=== PATIENT | female | born 1990 | race African-American/Black ===

== ENCOUNTER 2020-07-14 06:58 | Emergency (ER) | payer BC, OTHER, SELFPAY ==
[2020-07-14 07:19] VITALS: BP 107/40; PULSE 88; RESP 16; TEMP 36.9; O2SAT 98; BMI 37.5
--- NOTE | 2020-07-14 07:34 | ED_ITS ---
HPI - Headache General Chief Complaint: Headache Stated Complaint: headache,dizzy Time Seen by Provider: 07/14/20 07:21 History of Present Illness HPI Narrative: 30-year-old female with a history of migraines who presents to the emergency department for evaluation of headache. The patient states that the headache started around midnight, occurred while she was watching television, came on gradually. She describes a sensation as a pressure like sensation over her temporal areas of her head. The pressure is intermittent. The pressure is 8/10 at its worst. She had associated nausea without vomiting. She denied numbness, weakness, fever, chills, cough, rhinorrhea, chest pain or shortness of breath. The patient states that her last menstrual period is late by approximately 1 week and she is concerned that she may be . The patient states that she woke up this morning and had a persistent headache and was not able to go to work secondary to her headache, therefore she came to the emergency department for evaluation. 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 Related Data Previous Rx's Medication Instructions Recorded metoclopramide HCl [Reglan] 10 mg PO Q6H PRN #10 tab 07/14/20 Allergies Allergy/AdvReac Type Severity Reaction Status Date / Time No Known Allergies Allergy Verified 07/14/20 07:19 Review of Systems Review of Systems: Yes all other systems are reviewed and are negative Constitutional: Constitutional: Reports as per HPI Cardiovascular: Cardiovascular: Reports as per HPI Respiratory: Respiratory: Reports as per HPI Gastrointestinal: Gastrointestinal: Reports as per HPI Genitourinary: Genitourinary: Reports as per HPI Musculoskeletal: Musculoskeletal: Reports as per HPI Integumentary/Breasts: Skin/Breast: Reports as per HPI Neurologic: Reports as per HPI and Reports Abnormal speech present Psychiatric: Psychiatric: Reports as per HPI [facility] Past Medical History Medical History Migraine Social History Social History (Updated 07/14/20 @ 08:12 by Tomasz Mascorro MD) Alcohol intake: never Smoking Status: Never smoker Use of substances other than those prescribed or required for medical reasons: No Advance Directives: Yes Advance Directives Information Provided: Yes Advance Directives on File: No 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al status: employed 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: 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 , 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 Physical Exam Vital Signs: Vital Signs: Last Vital Signs Temp 98.4 F 07/14/20 07:19 Pulse 88 07/14/20 07:19 Resp 16 07/14/20 07:19 BP 107/40 L 07/14/20 07:19 Pulse Ox 98 07/14/20 07:19 Body Mass Index 37.5 Const: General: cooperative, no acute distress, well developed, alert and awake Orientation/consciousness: oriented to person HENMT: Head: Yes normal to inspection, Yes normocephalic, Yes atraumatic and Yes other (No temporal tenderness) Ears: hearing grossly normal bilaterally General nose exam: Normal external nose present Face and sinus: Yes normal facial exam Mouth: Normal oral and palatal mucosa present, lip normal, tongue normal, oropharynx normal and moist mucous membranes Throat: Yes posterior oropharynx normal, Yes tonsils normal and Yes uvula midline Eyes: General: appearance normal, both eyes and all related structures Eyelids: Yes eyelids normal Conjunctivae: conjunctivae normal Sclerae: sclerae normal Corneas: corneas normal Pupils: Equal, round and reactive pupils present Neck: Neck: Yes normal visual inspection, Yes no lymphadenopathy, Yes trachea midline and Yes supple Thyroid: Thyroid normal Lymphatic: no lymphadenopathy noted Chest: Chest palpation & inspection: normal inspection of the chest and normal palpation of entire chest wall Resp: Effort & Inspection: normal respiratory effort and able to speak in complete sentences Auscultation: clear to auscultation bilaterally Cardio: Rate: regular rate Rhythm: regular rhythm Heart sounds: S1 normal heart sound present, S2 normal heart sound present and no murmurs GI: Inspection: Yes normal to inspection Palpation (GI): Soft to palpation, nontender and No hepatosplenomegaly present Auscultation: normal bowel sounds : General: Yes no CVA tenderness Back/Spine/Pelvis: Back: no CVA tenderness Thoracic/Lumbar Spine: thoracic and lumbar spine normal to inspection Skin: General skin exam: no rashes or lesions noted, no erythema and no jaundice Lesions: no lesions Rashes: no rashes Trauma: no lacerations or abrasions Wounds: no wounds Neuro: General: oriented to person and moves all extremities Cranial nerves: Yes CN's II-XII intact bilaterally and Yes Equal, round and reactive pupils present Cognition (Neuro): normal cognition Speech: Abnormal speech present Motor exam (neuro): Motor abnormalities not present Extrem: General: Yes normal to inspection, Yes no pedal edema and Yes no calf tenderness Right upper extremity: normal to inspection Left upper extremity: normal to inspection Right lower extremity: normal to inspection Left lower extremity: normal to inspection Psych: Appearance: grossly normal Mental Status: mental status grossly normal Speech and movement: Normal speech and movement present Affect: normal affect Attitude: cooperative Thought process: Normal thought process present Insight: Good insight present (Psych) NIH Stroke Scale Internal: Initial- Upon Arrival Level of Consciousness: Alert Level of Consciousness Questions: Answers both questions correctly Level of Consciousness Commands: Performs both tasks correctly Best Gaze: Normal Visual: No visual loss Facial Palsy: Normal Motor Arm (Right): No drift Motor Arm (Left): No drift Motor Leg (Right): No drift Motor Leg (Left): No drift Limb Ataxia: Absent Sensory: Normal Best Language: No aphasia Dysarthia: Normal Extinction and Inattention: No abnormality Score: 0 Course Course Course Narrative: 30-year-old female who presents to the emergency department fo r evaluation of headache, she does have a history of migraines. The patient did take Excedrin migraine which is her usual migraine medication, with only minimal relief of her pain. The patient also states that she is approximately 1 week late on her menstrual period and she is concerned that she may be . Patient's physical examination was unremarkable with a normal neurologic exam. Patient's presentation is consistent with a migraine syndrome. I did order Tylenol 975 per orally for the patient. I also ordered a urine test. 0821: Patient's urine test came back negative and I did discuss this negative result with the patient. She was advised to assume that she is until she gets her menstrual periods. She was advised to repeat a home test in 1-2 weeks if she does not have her menstrual period. Patient's pain did improve with Tylenol orally. I will start her on a migraine regimen to include Tylenol 975 mg orally, Benadryl 50 mg orally and regular and 10 mg orally. She was advised to take his medications every 6 hours as needed for headache. I did tell her that these medications would make her sleepy and she cannot drive while taking these medications. She is given a work note not return to work for 2 days. She is given printed instructions and advised to return to the emergency department if her symptoms get worse or she develops any new symptoms that are concerning to her. MDM - Headache Differential Diagnosis Differential diagnosis: Likely migraine, tension headache, subarachnoid hemorrhage, headache, meningitis and sinusitis Medical Records Attestation: I reviewed the patient's medical records. Lab Data Attestation: I reviewed the patient's lab results. Lab results narrative: Urine test was negative Labs: Lab Results 07/14/20 Range/Units 07:53 Urine Test NEGATIVE (NEGATIVE) Discharge Plan Discharge Clinical Impression: Migraine Qualifiers: Migraine type: without aura Patient Disposition: Home, Self-Care Instructions: Migraine Headache (ED) Additional Instructions: Your test today was negative. You should repeat a home test in 1-2 weeks if he is not having menstrual periods. For migraines take the following medications together every 6 hours: Tylenol 325 mg pills, 3 pills once (you can take Excedrin migraine if you are not as prescribed on the bottle). Benadryl 25 mg pills, 2 pills once. Reglan 10 mg, 1 pill once These 3 medications can be taken together every 6 hours, these medications are making her sleepy, do not drive or work if you take these medications. No work for 2 days. Please return to the emergency department her symptoms get worse if you develop any symptoms that are concerning to you. Prescriptions: New metoclopramide HCl [Reglan] 10 mg tablet 10 mg PO Q6H PRN (Reason: Headache, nausea or vomiting) Qty: 10 RF: 0 Stand Alone Forms: Work/School Release
[2020-07-14] MEDS: Acetaminophen 325 MG TABLET 975 MG PO (07:49)
[2020-07-14 08:09] LABS: UPreg QC Valid YES; Urine Pregnancy NEGATIVE (NEGATIVE)
== END 2020-07-14 08:43 | disposition home or self-care (01) ==
PROVIDERS: Emergency Provider Emergency Medicine Emergency Medical Services
DX: G43.009 Migraine without aura, not intractable, without status migrainosus (principal); Z79.899 Other long term (current) drug therapy; Z20.828 Contact with and (suspected) exposure to other viral communicable diseases
CPT/HCPCS: 81025; 99283; 99284

== ENCOUNTER 2020-08-19 09:57 | Outpatient (REF) | payer OTHER, SELFPAY | END 2020-08-19 09:58 | disposition home or self-care (01) | LOC: HO.LAB 09:57 | PROVIDERS: Visit Provider Internal Medicine | DX: Z20.828 Contact with and (suspected) exposure to other viral communicable diseases (principal) | CPT/HCPCS: C9803; U0003 ==

== ENCOUNTER 2020-09-15 10:39 | Outpatient (REF) | payer OTHER, SELFPAY | END 2020-09-15 10:40 | disposition home or self-care (01) | LOC: HO.LAB 10:39 | PROVIDERS: Visit Provider Internal Medicine | DX: Z20.822 Contact with and (suspected) exposure to COVID-19 (principal) | CPT/HCPCS: 36415; C9803; U0003 ==

== ENCOUNTER 2020-10-22 10:19 | Emergency (ER) | payer BC, OTHER, SELFPAY ==
[2020-10-22 10:23] VITALS: BP 111/58; PULSE 85; RESP 18; TEMP 36.8; O2SAT 98; BMI 38.7
[2020-10-22 11:37] LABS: COVID-19 Test Negative (Negative)
--- NOTE | 2020-10-22 12:05 | ED_ITS ---
HPI - General Adult General Chief complaint: General Medical Stated complaint: sore throat Time Seen by Provider: 10/22/20 10:42 Source: patient Mode of arrival: ambulatory History of Present Illness HPI narrative: 30-year-old female with a past medical history of migraines presenting to the ED complaining of sore throat since yesterday. Reports feels scratchy. Denies difficulty/inability to swallow, swelling, fever, cough, ear pain, SOB, CP, exposure to COVID-19 Onset (ago): day(s) Related Data Previous Rx's Medication Instructions Recorded metoclopramide HCl [Reglan] 10 mg PO Q6H PRN #10 tab 07/14/20 Allergies Allergy/AdvReac Type Severity Reaction Status Date / Time No Known Allergies Allergy Verified 07/14/20 07:19 Review of Systems Review of Systems: Constitutional: No Fever, No Chills ENT/Mouth: No Ear Pain, No Nasal Congestion, No Sinus Pain, No Hoarseness, +sore throat, No Rhinorrhea, No Swallowing Difficulty Cardiovascular: No Chest Pain, No SOB Respiratory: No Cough, No Sputum, No Wheezing Skin: No Skin Lesions, No rash Yes all other systems are reviewed and are negative [facility] Past Medical History Attestation statement: The following information was validated with the patient. 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 Physical Exam Vital Signs: Vital Signs: Last Vital Signs Temp 98.2 F 10/22/20 10:23 Pulse 85 10/22/20 10:23 Resp 18 10/22/20 10:23 BP 111/58 L 10/22/20 10:23 Pulse Ox 98 10/22/20 10:23 Body Mass Index 38.7 Const: General: cooperative, healthy appearing, comfortable and no acute distress Orientation/consciousness: patient oriented x3 Limitations: no limitations HENMT: Head: Yes normal to inspection Ears: hearing grossly normal bilaterally and TM's normal bilaterally General nose exam: Normal external nose present and Normal nares present Face and sinus: Yes normal facial exam Mouth: Normal oral and palatal mucosa present Throat: Yes posterior oropharynx normal, Yes tonsils normal, Yes uvula midline, Yes abnormal tonsil, No peritonsillar mass, No uvula laterally displaced and No uvular edema Eyes: General: appearance normal, both eyes and all related structures Eyelids: Yes eyelids normal Conjunctivae: conjunctivae normal EOM: EOMs intact bilaterally Neck: Neck: Yes normal visual inspection, Yes full ROM, Yes no lymphadenopathy and Yes no meningeal signs Resp: Effort & Inspection: normal respiratory effort Cardio: Rate: regular rate GI: Inspection: Yes normal to inspection Skin: Rashes: no rashes Wounds: no wounds Neuro: General: patient oriented x3 and no meningeal signs Gait exam (Neuro): Normal gait present Extrem: General: Yes normal to inspection Course Course Course Narrative: -COVID-19 and rapid strep negative Medical Decision Making MDM Narrative Medical decision making narrative: On exam VSS, NAD/well-appearing. Concern for viral syndrome/COVID-19 versus viral pharyngitis. Exam not consistent with strep pharyngitis at this time. Plan: Rapid strep, COVID-19 testing. Lab Data Labs: Lab Results 10/22/20 Range/Units 11:11 COVID-19 ([facility]NEY) Negative (Negative) COVID-19 Clin Com See Note Discharge Plan Discharge Clinical Impression: Pharyngitis Patient Disposition: Home, Self-Care Instructions: Viral Syndrome (ED) Additional Instructions: Your COVID-19 and rapid strep were negative today in the ED. does important that he stay hydrated at home. Take Tylenol Motrin as needed for pain/fever. Rest. Follow up with her primary care doctor Prescriptions: No Action metoclopramide HCl [Reglan] 10 mg tablet 10 mg PO Q6H PRN (Reason: Headache, nausea or vomiting) Qty: 10 RF: 0 Referrals: Physician,None [Primary Care Provider] - 5 days Stand Alone Forms: Work/School Release
== END 2020-10-22 12:21 | disposition home or self-care (01) ==
PROVIDERS: Physician Assistant; Emergency Provider Emergency Medicine
DX: J02.9 Acute pharyngitis, unspecified (principal); Z20.822 Contact with and (suspected) exposure to COVID-19
CPT/HCPCS: 36415; 87071; 87147; 87635; 87880; 99283

== ENCOUNTER 2021-01-05 11:32 | Outpatient (REF) | payer BC, OTHER, SELFPAY ==
[2021-01-05 11:55] LABS: COVID-19 Test Negative (Negative); IDNOW Serial# 55D5AD1C
== END 2021-01-05 11:33 | disposition home or self-care (01) ==
LOC: HO.LAB 11:32
PROVIDERS: Visit Provider Internal Medicine
DX: Z20.822 Contact with and (suspected) exposure to COVID-19 (principal)
CPT/HCPCS: 36415; 87635; C9803

== ENCOUNTER → 2021-03-10 09:57 | Outpatient (BNVA) | payer SELFPAY | DX: Z11.1 Encounter for screening for respiratory tuberculosis (principal) ==

== ENCOUNTER 2021-05-08 10:35 | Outpatient (REF) | payer BC, OTHER, SELFPAY | END 2021-05-08 10:36 | disposition home or self-care (01) | LOC: HO.LAB 10:35 | PROVIDERS: Visit Provider Internal Medicine | DX: Z20.822 Contact with and (suspected) exposure to COVID-19 (principal) | CPT/HCPCS: C9803; U0003; U0005 ==

== ENCOUNTER 2021-05-15 13:18 | Outpatient (REF) | payer BC, OTHER, SELFPAY | END 2021-05-15 13:19 | disposition home or self-care (01) | LOC: HO.LAB 13:18 | PROVIDERS: Visit Provider Internal Medicine | DX: Z20.822 Contact with and (suspected) exposure to COVID-19 (principal) | CPT/HCPCS: C9803; U0003; U0005 ==

== ENCOUNTER → 2021-06-23 13:42 | Outpatient (BNVA) | payer BC, OTHER, SELFPAY | PROVIDERS: Visit Provider Advanced Practice Midwife | DX: Z32.01 Encounter for pregnancy test, result positive (principal) | CPT/HCPCS: 81025; 99212 ==

== ENCOUNTER 2021-06-23 15:38 | Outpatient (REF) | payer BC, OTHER, SELFPAY ==
--- NOTE | ~2021-06-23 | US_ITS ---
EXAMINATION: ULTRASOUND OB LIMITED CLINICAL INFORMATION: Encounter for positive test. Estimated delivery date from LMP 12/11/2020 COMPARISON: None TECHNIQUE: Transabdominal OB ultrasound was performed. FINDINGS: There is a single viable intrauterine . heart rate is 147 bpm. measurements: BPD 3.1 cm suggesting gestational age 15 weeks 5 days OFD 3.3 cm suggesting gestational age 16 weeks 6 days Head circumference 12.5 cm suggesting gestational age 16 weeks 2 days Abdominal circumference 10.3 cm suggesting gestational age 16 weeks 2 days Femur length 2.1 cm suggesting gestational age 16 weeks 2 days. measurements are concordant. From today's measurements, gestational age is estimated at 16 weeks 1 day. There is a right fundal placenta with grade 1 changes. The maternal ovaries were not imaged. US/US OB limited IMPRESSION: Single viable intrauterine . Size agrees with date from LMP. From today's measurements, estimated date of delivery is 16 weeks 1 day.
== END 2021-06-23 15:39 | disposition home or self-care (01) ==
LOC: HO.US 15:38
PROVIDERS: Visit Provider Advanced Practice Midwife
DX: O09.292 Supervision of pregnancy with other poor reproductive or obstetric history, second trimester (principal); Z3A.16 16 weeks gestation of pregnancy
CPT/HCPCS: 76815

== ENCOUNTER → 2021-07-02 09:49 | Outpatient (BNVA) | payer BC, OTHER, SELFPAY | PROVIDERS: Visit Provider Advanced Practice Midwife | DX: O26.892 Other specified pregnancy related conditions, second trimester (principal); G43.009 Migraine without aura, not intractable, without status migrainosus; O99.212 Obesity complicating pregnancy, second trimester; O34.219 Maternal care for unspecified type scar from previous cesarean delivery; Z3A.16 16 weeks gestation of pregnancy; Z91.013 Allergy to seafood; Z79.82 Long term (current) use of aspirin | CPT/HCPCS: 99212 ==

== ENCOUNTER 2021-07-10 09:20 | Outpatient (REF) | payer BC, OTHER, SELFPAY ==
--- NOTE | ~2021-07-10 | US_ITS ---
EXAMINATION: US OBSTETRICAL CLINICAL INFORMATION: 31-year-old at the 18.0 weeks of gestation Screening for anomaly COMPARISON: 06/23/2021 TECHNIQUE: Real-time transabdominal ultrasound was performed using C1-5 megahertz transducer. FINDINGS: A single, active, fetus is seen in vertex presentation. The placenta is anterior without previa, and the amniotic fluid volume is wnl. MEASUREMENTS: 1. Biparietal Diameter: 4.1 cm; 18.4 wks 2. Occipital Frontal Diameter: 5.7 cm 3. Head Circumference: 15.7 cm; 18.5 wks 4. Abdominal Circumference: 12.6 cm; 18.2 wks 5. Femur Length: 2.7 cm; 18.1 wks 6. Humerus Length: 2.7 cm; 18.4 wks 7. Tibia Length: 2.4 cm; 18.5 wks 8. Ulna Length: 2.5 cm; 18.6 wks 9. Lateral ventricle: 0.64 cm 10. Cerebellum: 1.8 cm; 18.5 wks 11. Cisterna Magna: 0.4 cm 12. Nuchal Fold: 3.1 mm 13. Heart Rate: 152 beats per minute Rt ovary: Unable to visualize Lt ovary: normal Cervical length 3.9 cm on T/A. GESTATIONAL AGE: 1. Established GA: 18.0 wks 2. GA from [facility]: 18.3 wks ESTIMATED DATE OF DELIVERY: 1. Established VICKI: 12/11/2021 2. VICKI from [facility]: 12/08/2021 ANATOMY: The views of the cardiac anatomy were suboptimal due to position. The visualized anatomy includes but not limited to: 1. Cranium: Normal 2. Intracranial anatomy: cavum septum pellucidi, lateral ventricles, choroid plexus, cerebellum, posterior fossa, third and fourth ventricles. 3. face: orbits, lip/palate, profile, nasal bone 4. Heart: Limited views due to position.. 5. Diaphragm: Normal 6. Abdominal wall: Normal 7. Cord Insertion: Normal 8. Spine: Cervical, thoracic, lumbar, sacral. 9. Stomach: Normal size and shape 10. Right Kidney: Normal 11. Left Kidney: Normal 12. 3 vessel cord: Normal 13. Upper extremity: Open hands, fifth digit. 14. Lower extremity: Tibia, fibula, bilateral feet. 15. Bladder: Normal 16. Genitalia: Female, patient aware US/US OB /maternal detail IMPRESSION: 1. Single, living, intrauterine with appropriate biometry. 2. Limited the cardiac views. Rest of the anatomy was within normal limits. DISCUSSION: I reviewed today's ultrasound findings. We discussed the limitations of ultrasound in diagnosing aneuploidy and other congenital abnormalities. I reviewed the differences between screening test and diagnostic test. Amniocentesis was discussed and declined. She was informed that the baseline incidence of congenital abnormalities is approximately 3-5%. Not all these conditions are diagnosable in utero. RECOMMENDATIONS: 1. Follow-up in 3 weeks for heart views (scheduled). 2. N IPT ordered. Thank you for allowing me to participate in her care. Total time 30 minutes. The time spent was devoted to counseling the patient about the disease and diagnosis, coordinating care including reviewing her records, pertinent lab data and studies, as well as discussing diagnostic evaluation and workup, plan therapeutic interventions and future disposition of care. This includes any additional research needed to obtain further information in formulating the plan of care of this patient. This note was generated with a voice recognition program. Please excuse any errors which may have been overlooked during my review of this note. Sometimes these errors may affect the content or meaning of a given sentence.
== END 2021-07-10 09:21 | disposition home or self-care (01) ==
LOC: HO.US 09:20
PROVIDERS: Visit Provider Advanced Practice Midwife
DX: O35.9XX0 Maternal care for (suspected) fetal abnormality and damage, unspecified, not applicable or unspecified (principal); Z3A.18 18 weeks gestation of pregnancy
CPT/HCPCS: 76811

== ENCOUNTER 2021-07-24 08:16 | Outpatient (REF) | payer BC, OTHER, SELFPAY ==
[2021-07-25 11:19] LABS: BV Int Neg Control Negative (Negative); BV Int Pos Control Positive (Positive)
[2021-07-25 15:10] LABS: CT PCR NOT DETECTED (Not Detect.); NG PCR NOT DETECTED (Not Detect.)
[2021-08-01 22:11] LABS: HPV 16 RNA NOT DETECTED (NOT DETECTED); HPV mRNA E6/E7 rflx Detected (Not Detected)
== END 2021-07-24 08:17 | disposition home or self-care (01) ==
LOC: HO.LAB 08:16
PROVIDERS: Visit Provider Advanced Practice Midwife
DX: Z01.419 Encounter for gynecological examination (general) (routine) without abnormal findings (principal); O99.212 Obesity complicating pregnancy, second trimester; O34.219 Maternal care for unspecified type scar from previous cesarean delivery; E66.9 Obesity, unspecified; Z3A.20 20 weeks gestation of pregnancy; Z20.2 Contact with and (suspected) exposure to infections with a predominantly sexual mode of transmission; Z79.899 Other long term (current) drug therapy
CPT/HCPCS: 81003; 87480; 87491; 87510; 87591; 87624; 87625; 87660; 88142; 99212

== ENCOUNTER 2021-07-30 08:37 | Outpatient (REF) | payer BC, OTHER, SELFPAY ==
[2021-07-30 10:19] LABS: Hemoglobin 11.3 g/dl (12.0-16.0); Mean Corpuscular HGB Conc 33.2 g/dl (31.0-35.0); Mean Corpuscular Hemoglobin 29.3 pg (27.0-33.0); Mean Corpuscular Volume 88.1 fL (80.0-98.0); Mean Platelet Volume 10.7 fL (9.4-12.3); Platelet Count 233 X10*3/uL (160-400); Red Blood Count 3.86 X10*6/uL (4.20-5.50); Red Cell Distribution Width 14.4 % (11.0-16.0); White Blood Count 7.6 X10*3/uL (4.8-10.8)
[2021-07-30 10:58] LABS: Glucose 1 Hour PP 50gm Dose 100 mg/dL (60-140)
[2021-07-30 11:10] LABS: Amphetamine Screen Urine Not Detected (Not Detect); Barbiturates, Urine Not Detected (Not Detect); Benzodiazepines Screen Urine Not Detected (Not Detect); Cannabinoid Screen Urine Not Detected (Not Detect); Cocaine Screen Urine Not Detected (Not Detect); Fentanyl, urine Not Detected (Not Detect); Opiate Screen Urine Not Detected (Not Detect); Phencyclidine Screen Urine Not Detected (Not Detect)
[2021-07-30 11:13] LABS: HIV AB/AG Nonreactive (Nonreactive); HIV Num 1 0.05 S/CO (0.00-0.99); ~Hepatitis C Antibody Nonreactive (Nonreactive)
[2021-07-30 11:48] LABS: HBsAGNum1 0.24 S/CO (0.00-0.99); Hepatitis B Surface Antigen Negative (Negative)
[2021-07-31 09:05] LABS: Syphilis Screen Nonreactive (Nonreactive)
[2021-08-01 13:22] LABS: Rubella IgG Antibody 1.72 Index
== END 2021-07-30 08:38 | disposition home or self-care (01) ==
LOC: HO.LAB 08:37
PROVIDERS: Visit Provider Advanced Practice Midwife
DX: Z32.01 Encounter for pregnancy test, result positive (principal); Z67.40 Type O blood, Rh positive
CPT/HCPCS: 80307; 85027; 86762; 86780; 86787; 86803; 86850; 86900; 86901; 87086; 87340; 87389

== ENCOUNTER 2021-07-31 09:34 | Outpatient (REF) | payer BC, OTHER, SELFPAY ==
--- NOTE | ~2021-07-31 | US_ITS ---
EXAMINATION: OBSTETRICAL ULTRASOUND, Follow up HISTORY: 31-year-old at the 21.0 weeks of gestation Incomplete survey High BMI COMPARISON: 07/10/2021 TECHNIQUE: Real time transabdominal imaging with color and M-mode Doppler. PRESENTATION: Vertex PLACENTA LOCATION: Anterior without previa AMNIOTIC FLUID: Within normal limits MEASUREMENTS: 1. Biparietal Diameter: 4.9 cm; 20.6 wks 2. Head Circumference: 19.2 cm; 21.4 wks 3. Abdominal Circumference: 17.3 cm; 22.2 wks 4. Femur Length: 3.7 cm; 21.6 wks 5. Heart Rate: 152 beats per minute WEIGHT: Estimated weight is 464 grams (1 lbs 0 oz) -- 90 %. Normal views of lateral cerebral ventricle, profile, nose/lips, 4ch view, LVOT, RVOT, three-vessel, 3 vessel trachea view, aortic and ductal arches. GESTATIONAL AGE: 1. Established GA: 21.0 wks 2. GA from [facility]: 21.5 wks ESTIMATED DATE OF DELIVERY: 1. Established VICKI: 12/11/2021 2. VICKI from [facility]: 12/06/2021 US/US OB follow up IMPRESSION: 1. A single fetus with appropriate interval growth. 2. Previously limited views of the anatomy were seen as listed above. No abnormalities were noted in visualized anatomy. 3. This completes the survey. I reviewed the limitations of ultrasound in diagnosing aneuploidy and other congenital abnormalities. Amniocentesis was again reviewed and she declined. She was informed that the baseline instance of congenital abnormalities and defects in the general population is approximately 3-5%. Not all these conditions are diagnosable in utero. RECOMMENDATIONS: 1. f/u PRN Thank you very much for this referral. This note was generated with a voice recognition program. Please excuse any errors which may have been overlooked during my review of this note. Sometimes these errors may affect the content or meaning of a given sentence.
== END 2021-07-31 09:35 | disposition home or self-care (01) ==
LOC: HO.US 09:34
PROVIDERS: Visit Provider Advanced Practice Midwife
DX: Z32.01 Encounter for pregnancy test, result positive (principal)
CPT/HCPCS: 76816

== ENCOUNTER → 2021-09-01 13:20 | Outpatient (BNVA) | payer OTHER, SELFPAY | PROVIDERS: Visit Provider Obstetrics & Gynecology | DX: O99.212 Obesity complicating pregnancy, second trimester (principal); E66.9 Obesity, unspecified; O98.512 Other viral diseases complicating pregnancy, second trimester; U07.1 COVID-19; Z3A.25 25 weeks gestation of pregnancy | CPT/HCPCS: 99212 ==

== ENCOUNTER → 2021-10-30 07:57 | Outpatient (BNVA) | payer OTHER, SELFPAY | PROVIDERS: Visit Provider Advanced Practice Midwife | DX: O36.63X0 Maternal care for excessive fetal growth, third trimester, not applicable or unspecified (principal); O99.213 Obesity complicating pregnancy, third trimester; Z3A.32 32 weeks gestation of pregnancy; E66.9 Obesity, unspecified | CPT/HCPCS: 99212 ==

== ENCOUNTER 2021-11-06 09:50 | Outpatient (REF) | payer OTHER, SELFPAY ==
--- NOTE | ~2021-11-06 | US_ITS ---
EXAMINATION: OBSTETRICAL ULTRASOUND, Follow up HISTORY: 31-year-old at the 35.0 weeks of gestation High BMI Size date discrepancy COMPARISON: 07/31/2021 TECHNIQUE: Real time transabdominal imaging with color and M-mode Doppler. PRESENTATION: Vertex PLACENTA LOCATION: Anterior without previa AMNIOTIC FLUID: QUANG 12.2 cm MEASUREMENTS: 1. Biparietal Diameter: 8.7 cm; 35.1 wks 2. Head Circumference: 31.6 cm; 35.4 wks 3. Abdominal Circumference: 31.21 cm; 35.1 wks 4. Femur Length: 6.8 cm; 35.1 wks 5. Heart Rate: 156 beats per minute WEIGHT: EFW: 2670 grams (5 lbs 14 oz) -- 59 %. BIOPHYSICAL PROFILE: Motion: 2 Tone: 2 Breathin Amniotic Fluid: 2 Total score: 8/8 GESTATIONAL AGE: 1. Established GA: 35.0 wks 2. GA from [facility]: 35.2 wks ESTIMATED DATE OF DELIVERY: 1. Established VICKI: 12/11/2021 2. VICKI from [facility]: 12/09/2021 US/US OB follow up IMPRESSION: 1. A single active fetus is in vertex presentation 2. Size equals dates 3. Reassuring BPP with normal QUANG. I reviewed the limitations of ultrasound in estimating weights. According to the patient she is scheduled to repeat her 1 hour GLT. Currently, does not have the diagnosis of gestational diabetes nor is monitoring her glucose. The growth is appropriate for her assigned gestational age. Thank you very much for this referral. Total time 20 minutes. The time spent was devoted to counseling the patient about the disease and diagnosis, coordinating care including reviewing her records, pertinent lab data and studies, as well as discussing diagnostic evaluation and workup, plan therapeutic interventions and future disposition of care. This includes any additional research needed to obtain further information in formulating the plan of care of this patient. This note was generated with a voice recognition program. Please excuse any errors which may have been overlooked during my review of this note. Sometimes these errors may affect the content or meaning of a given sentence.
[2021-11-06 12:25] LABS: Hematocrit 33.2 % (37.0-47.0); Hemoglobin 10.5 g/dl (12.0-16.0); Mean Corpuscular HGB Conc 31.6 g/dl (31.0-35.0); Mean Corpuscular Hemoglobin 27.9 pg (27.0-33.0); Mean Corpuscular Volume 88.3 fL (80.0-98.0); Platelet Count 167 X10*3/uL (160-400); Red Blood Count 3.76 X10*6/uL (4.20-5.50); Red Cell Distribution Width 13.3 % (11.0-16.0); White Blood Count 7.8 X10*3/uL (4.8-10.8)
[2021-11-06 12:48] LABS: Glucose 1 Hour PP 50gm Dose 110 mg/dL (60-140)
[2021-11-06 13:08] LABS: Syphilis Screen Nonreactive (Nonreactive)
== END 2021-11-06 09:51 | disposition home or self-care (01) ==
LOC: HO.US 09:50
PROVIDERS: Obstetrics & Gynecology; Visit Provider Advanced Practice Midwife
DX: O99.213 Obesity complicating pregnancy, third trimester (principal); Z3A.35 35 weeks gestation of pregnancy
CPT/HCPCS: 36415; 76816; 85027; 86780

== ENCOUNTER 2022-02-23 22:24 | Emergency (ER) | payer BC, OTHER, SELFPAY ==
[2022-02-23 23:19] VITALS: BP 123/60; PULSE 99; RESP 16; TEMP 37.5; O2SAT 100; BMI 35.1
[2022-02-23 23:32] LABS: Strep A Nucleic Acid Positive (Negative)
[2022-02-23 23:45] LABS: COVID-19 Test Negative (Negative); IDNOW Serial# 16C4AD1C; Influenza A Negative (Negative); Influenza B2 Negative (Negative)
[2022-02-24 01:40] VITALS: BP 126/76; PULSE 97; RESP 20; O2SAT 100
--- NOTE | 2022-02-24 01:48 | ED.URI ---
HPI - URI/Sore Throat General Chief Complaint: Upper Respiratory Symptoms Stated Complaint: ear and throat pain Time Seen by Provider: 02/24/22 01:43 Source: patient Mode of arrival: ambulatory Limitations: no limitations History of Present Illness HPI Narrative: Patient comes to the emergency room complaining of sore throat since yesterday. Patient denies fever chills, denies coughing, no chest pain or shortness of breath. Patient states that she has mild bilateral ear discomfort. No drainage. Related Data Previous Rx's Medication Instructions Recorded aspirin 81 mg tablet,delayed 162 mg PO DAILY #300 tabs 06/23/21 release (Adult Aspirin Regimen) vitamin with calcium 1 tab PO DAILY #300 tabs 06/23/21 no.72-iron 27 mg-folic acid 1 mg tablet ( Vitamins Plus Low Iron) doxylamine succinate 25 mg tablet 12.5 mg PO BEDTIME sleep 30 days 07/02/21 (Unisom (doxylamine)) #15 tabs pyridoxine (vitamin B6) 25 mg 25 mg PO TID 30 days #90 tabs 07/02/21 tablet famotidine 10 mg tablet (Pepcid AC) 10 mg PO BID 30 days #60 tabs 10/30/21 ferrous sulfate 325 mg (65 mg 325 mg PO DAILY 90 days #90 tabs 11/11/21 iron) tablet,delayed release amoxicillin 500 mg-potassium 1 tab PO BID 10 days #20 tabs 02/24/22 clavulanate 125 mg tablet (Augmentin) Allergies Allergy/AdvReac Type Severity Reaction Status Date / Time shellfish derived Allergy Mild Hives Verified 02/23/22 23:20 Review of Systems Review of Systems: Constitutional : No Weight loss, No Fever, No Chills, No Night Sweats, No Fatigue, No Malaise ENT/Mouth : No Hearing loss, No Ear Pain, No Nasal Congestion, No Sinus Pain, No Hoarseness, complaining of sore throat, No Rhinorrhea, No Swallowing Difficulty Eyes: No Eye Pain, No Swelling, No Redness, No Foreign Body, No Discharge, No Vision Changes Cardiovascular : No Chest Pain, No SOB, No Dyspnea on Exertion, No Orthopnea, No Edema, No Palpitations Respiratory : No Cough, No Sputum, No Wheezing, No Smoke Exposure, No Dyspnea Gastrointestinal : No Nausea, No Vomiting, No Diarrhea, No Constipation, No abdominal Pain, No Hematochezia, No Melena Genitourinary : no irregular bleeding, No Dysuria, No Urinary Frequency, No Hematuria, No Urinary Incontinence, No Urgency, No Flank Pain, No Urinary Flow Changes, No Hesitancy Musculoskeletal : No joint pain, No Myalgias, No Joint Swelling Skin : No Skin Lesions, No rash Neuro : No Weakness, No Numbness, No Paresthesias, No Loss of Consciousness, No Dizziness, No Headache Psych : No Anxiety/Panic, No Depression, No SI/HI/AH/VH, No Social Issues, Heme/Lymph: No Bruising, No Bleeding,No Lymphadenopathy Endocrine : No Polyuria, No Polydipsia, No Temperature Intolerance PMFSH Past Medical History Medical History Migraine Obesity (BMI 30-39.9) Surgical History H/O emergency section Family History Family History Maternal Grandmother Diabetes mellitus Maternal Aunt Cancer of breast, female Social History Social History Household Members: Children Housing: House Are you a primary critical care registered nurse to a significant other at home: No Do you presently have visiting nurse or other home services: No Alcohol intake: never Patient Tobacco Use Status: Never used Tobacco Use of substances other than those prescribed or required for medical reasons: No Agree to transfusion: Yes service: No 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al status: employed 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 Oriented X3. No acute distress. Eyes: Pupils equal, round and reactive to light. ENT: Bilateral enlarged tonsils, no visualized abscess, bilateral exudates, no oropharyngeal obstruction, patient able to swallow, handling oral secretions well Neck: Normal inspection. Neck supple. No lymph nodes noted. No crepitus CVS: Normal heart rate and rhythm. Pulses normal. Normal S1 and S2 Respiratory: No respiratory distress. Breath sounds normal. No Wheezing. No rales Abdomen: Soft and nontender. No rigidity. No distention. Skin: Skin warm and dry. Normal skin color. Normal skin turgor. Extremities: No lower extremity edema. No Lacerations. No Rash Neuro: Oriented X 3. No motor deficit. No sensory deficit. Moving all extremities. No slurred speech. CN 2 through 12 grossly intact Psych: calm, cooperative, normal affect Course Course Course Narrative: I discussed with the patient that she has strep. Patient given the 1st dose of Augmentin in the emergency room, also given p.o. dexamethasone and lidocaine for symptomatic relief. MDM - URI/Sore Throat Lab Data Labs: Lab Results 02/23/22 02/23/22 02/23/22 Range/Units 23:22 23:22 23:22 COVID-19 ([facility]) Negative (Negative) COVID-19 Clin Com See Note Influenza Type A ([facility]) Negative (Negative) Influenza Type B ([facility]) Negative (Negative) Influenza A & B Note See Note S. pyogenes GrpA [facility] Positive A (Negative) Discharge Plan Discharge Clinical Impression: Acute streptococcal pharyngitis Patient Disposition: Home, Self-Care Instructions: Strep Throat (ED) Additional Instructions: Please follow-up with your primary care physician tomorrow. If you have any worsening or new symptoms, please return to the emergency room or call 911 Prescriptions: New amoxicillin-pot clavulanate [Augmentin] 500-125 mg tablet 1 tab PO BID 10 Days Qty: 20 0RF No Action ferrous sulfate 325 mg (65 mg iron) tablet,delayed release (DR/EC) 325 mg PO DAILY 90 Days Qty: 90 3RF Vitamin Plus Low Iron 27 mg iron- 1 mg tablet 1 tab PO DAILY Qty: 300 2RF aspirin [Adult Aspirin Regimen] 81 mg tablet,delayed release (DR/EC) 162 mg PO DAILY Qty: 300 2RF Unisom (doxylamine) 25 mg tablet 12.5 mg PO BEDTIME 30 Days Qty: 15 0RF pyridoxine (vitamin B6) 25 mg tablet 25 mg PO TID 30 Days Qty: 90 0RF Boostrix Tdap 2.5-8-5 Lf-mcg-Lf/0.5mL syringe 0.5 ml IM ONCE Qty: 0.5 0RF famotidine [Pepcid AC] 10 mg tablet 10 mg PO BID 30 Days Qty: 60 2RF
[2022-02-24] MEDS: Lidocaine HCl Viscous 2 % 15 ML SOLUTION MUCOUS MEM (01:53)
[2022-02-24] MEDS: dexAMETHasone sod phosphate 4 MG/ML VIAL 8 MG IVPUSH (01:53)
[2022-02-24] MEDS: Amoxicillin/Potassium Clav 875 MG TABLET PO (01:54)
== END 2022-02-24 01:58 | disposition home or self-care (01) ==
LOC: HO.ED 02-24 01:57
PROVIDERS: Emergency Provider Emergency Medicine
DX: J02.0 Streptococcal pharyngitis (principal); Z20.822 Contact with and (suspected) exposure to COVID-19
CPT/HCPCS: 87502; 87635; 87651; 96374; 99284; J1100

== ENCOUNTER 2022-12-30 19:03 | Emergency (ER) | payer OTHER, SELFPAY ==
--- NOTE | ~2022-12-30 | XR_ITS ---
EXAMINATION: XR ABDOMEN KUB CLINICAL INDICATION: Constipation. COMPARISON: None available. TECHNIQUE: AP view of the abdomen. FINDINGS: The bowel gas pattern is normal with no evidence of ileus or obstruction. No unusual soft tissue calcifications are noted. The bones are unremarkable. XR/XR KUB IMPRESSION: No radiographic evidence of significant fecal residual and or bowel distention.
[2022-12-30 19:13] VITALS: BP 120/71; PULSE 92; RESP 18; TEMP 36.9; O2SAT 100; BMI 38.0
--- NOTE | 2022-12-30 19:16 | ED.GENADULT ---
HPI - General Adult General Chief complaint: Back Pain/Injury Stated complaint: back pain for a month, constipation, multiple Time Seen by Provider: 12/30/22 21:22 Source: patient Mode of arrival: ambulatory Limitations: no limitations History of Present Illness HPI narrative: Patient comes to the emergency room complaining of back pain top to bottom on both sides for several days. Patient also mentioned that she has been constipated. Patient is very anxious, states that she is afraid that she has cancer because of I told her that back pain is a sign of cancer. Patient denies any B symptoms, denies weight loss, denies night sweats. Patient denies any trauma Related Data Previous Rx's Medication Instructions Recorded aspirin 81 mg tablet,delayed 162 mg PO DAILY #300 tabs 06/23/21 release (Adult Aspirin Regimen) vitamin with calcium 1 tab PO DAILY #300 tabs 06/23/21 no.72-iron 27 mg-folic acid 1 mg tablet ( Vitamins Plus Low Iron) doxylamine succinate 25 mg tablet 12.5 mg PO BEDTIME sleep 30 days 07/02/21 (Unisom (doxylamine)) #15 tabs pyridoxine (vitamin B6) 25 mg 25 mg PO TID 30 days #90 tabs 07/02/21 tablet famotidine 10 mg tablet (Pepcid AC) 10 mg PO BID 30 days #60 tabs 10/30/21 ferrous sulfate 325 mg (65 mg 325 mg PO DAILY 90 days #90 tabs 11/11/21 iron) tablet,delayed release amoxicillin 500 mg-potassium 1 tab PO BID 10 days #20 tabs 02/24/22 clavulanate 125 mg tablet (Augmentin) acetaminophen 500 mg tablet 500 mg PO Q6H PRN fever or pain 12/30/22 #14 tabs cyclobenzaprine 5 mg tablet 5 mg PO TID PRN muscle spasm #7 12/30/22 tabs Allergies Allergy/AdvReac Type Severity Reaction Status Date / Time shellfish derived Allergy Mild Hives Verified 02/23/22 23:20 Review of Systems Review of Systems: Constitutional : No Weight loss, No Fever, No Chills, No Night Sweats, No Fatigue, No Malaise ENT/Mouth : No Hearing loss, No Ear Pain, No Nasal Congestion, No Sinus Pain, No Hoarseness, No sore throat, No Rhinorrhea, No Swallowing Difficulty Eyes: No Eye Pain, No Swelling, No Redness, No Foreign Body, No Discharge, No Vision Changes Cardiovascular : No Chest Pain, No SOB, No Dyspnea on Exertion, No Orthopnea, No Edema, No Palpitations Respiratory : No Cough, No Sputum, No Wheezing, No Smoke Exposure, No Dyspnea Gastrointestinal : No Nausea, No Vomiting, No Diarrhea, complaining of Constipation, No abdominal Pain, No Hematochezia, No Melena Genitourinary : no irregular bleeding, No Dysuria, No Urinary Frequency, No Hematuria, No Urinary Incontinence, No Urgency, No Flank Pain, No Urinary Flow Changes, No Hesitancy Musculoskeletal : Bilateral back pain, from the top of the scapulas to the lumbar area bilaterally, No Myalgias, No Joint Swelling Skin : No Skin Lesions, No rash Neuro : No Weakness, No Numbness, No Paresthesias, No Loss of Consciousness, No Dizziness, No Headache Psych : No Anxiety/Panic, No Depression, No SI/HI/AH/VH, No Social Issues, Heme/Lymph: No Bruising, No Bleeding,No Lymphadenopathy Endocrine : No Polyuria, No Polydipsia, No Temperature Intolerance [facility] Past Medical History Medical History Migraine Obesity (BMI 30-39.9) Surgical History H/O emergency section Family History Family History (Reviewed 07/24/21 @ 08:38 by Deo Georges [facility]) Maternal Grandmother Diabetes mellitus Maternal Aunt Cancer of breast, female Social History Social History Household Members: Children Housing: House Are you a primary tire care manager to a significant other at home: No Do you presently have visiting nurse or other home services: No Alcohol intake: never Patient Tobacco Use Status: Never used Tobacco Agree to transfusion: Yes Advance Directives: No Advance Directives Information Provided: No service: No 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al status: employed 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 Oriented X3. No acute distress. Eyes: Pupils equal, round and reactive to light. ENT: Pharynx normal. Neck: Normal inspection. Neck supple. No lymph nodes noted. No crepitus CVS: Normal heart rate and rhythm. Pulses normal. Normal S1 and S2 Respiratory: No respiratory distress. Breath sounds normal. No Wheezing. No rales Abdomen: Soft and nontender. No rigidity. No distention. Skin: Skin warm and dry. Normal skin color. Normal skin turgor. Extremities: No lower extremity edema. No Lacerations. No Rash Neuro: Oriented X 3. No motor deficit. No sensory deficit. Moving all extremities. No slurred speech. CN 2 through 12 grossly intact Psych: calm, cooperative, very anxious, crying Course Course Course Narrative: This is an RME: Additional HPI, ROS, PE not included below will be deferred to primary provider. 32 year old female with no significant PMH presents with back pain X3 weeks and constipation that began 3 days ago. Patient reports she pooped 4 days ago. Patient is ambulatory. Denies saddle paresthesias and reports she is not incontinent of urine or stool. No nausea, vomiting, fevers, chills, malaise. PE: benign Plan: Medical Decision Making Medical Decision Making [facility] Narrative: -I discussed the patient's physical exam with the patient. -discussed with the patient that there is no suspicion of cancer -KUB interpreted by me, no air-fluid levels, no significant amount of stool Differential Diagnosis Differential Diagnoses: The differential diagnosis associated with the presentation includes (Consider patient, anxiety, depression, musculoskeletal pain, fibromyalgia) Radiology Impression Discussion of test interpretation with radiology: I have reviewed the radiologist's reading. Radiologist Impression: FINDINGS: The bowel gas pattern is normal with no evidence of ileus or obstruction. No unusual soft tissue calcifications are noted. The bones are unremarkable. XR/XR KUB IMPRESSION: No radiographic evidence of significant fecal residual and or bowel distention. ? Discharge Plan Discharge Clinical Impression: Musculoskeletal pain Patient Disposition: Home, Self-Care Additional Instructions: Please follow-up with your primary care physician tomorrow. If you have any worsening or new symptoms, please return to the emergency room or call 911 Prescriptions: New cyclobenzaprine 5 mg tablet 5 mg PO TID PRN (Reason: muscle spasm) Qty: 7 0RF acetaminophen 500 mg tablet 500 mg PO Q6H PRN (Reason: fever or pain) Qty: 14 0RF No Action ferrous sulfate 325 mg (65 mg iron) tablet,delayed release (DR/EC) 325 mg PO DAILY 90 Days Qty: 90 3RF amoxicillin-pot clavulanate [Augmentin] 500-125 mg tablet 1 tab PO BID 10 Days Qty: 20 0RF Vitamin Plus Low Iron 27 mg iron- 1 mg tablet 1 tab PO DAILY Qty: 300 2RF aspirin [Adult Aspirin Regimen] 81 mg tablet,delayed release (DR/EC) 162 mg PO DAILY Qty: 300 2RF Unisom (doxylamine) 25 mg tablet 12.5 mg PO BEDTIME 30 Days Qty: 15 0RF pyridoxine (vitamin B6) 25 mg tablet 25 mg PO TID 30 Days Qty: 90 0RF Boostrix Tdap 2.5-8-5 Lf-mcg-Lf/0.5mL syringe 0.5 ml IM ONCE Qty: 0.5 0RF famotidine [Pepcid AC] 10 mg tablet 10 mg PO BID 30 Days Qty: 60 2RF
[2022-12-30] MEDS: Ibuprofen 600 MG TABLET PO (21:43)
== END 2022-12-30 21:50 | disposition home or self-care (01) ==
PROVIDERS: Emergency Provider Emergency Medicine; PCP Internal Medicine
DX: M54.50 Low back pain, unspecified (principal); M79.10 Myalgia, unspecified site; F41.9 Anxiety disorder, unspecified
CPT/HCPCS: 74018; 99283

== ENCOUNTER 2023-03-02 09:52 | Emergency (ER) | payer OTHER, SELFPAY ==
--- NOTE | ~2023-03-02 | CT_ITS ---
EXAMINATION: CT ABDOMEN AND PELVIS WITHOUT CONTRAST CLINICAL INFORMATION: Right lower quadrant pain. Diarrhea. COMPARISON: None available. TECHNIQUE: Multidetector volumetric imaging was performed from the superior aspect of the liver through the pubic symphysis. Sagittal and coronal reformatted images were obtained on the technologist's workstation. This CT examination was performed using dose optimization techniques as appropriate, variously including the following: *Automated exposure control *Adjustment of mA and/or kV according to patient size (this includes techniques or standardized protocols for targeted exams where dose is matched to indication/reason for exam; i.e. extremities or head) *Use of iterative reconstruction technique DLP: 829 mGy-cm FINDINGS: LUNG BASES: The visualized lung bases are unremarkable. LIVER, GALLBLADDER, AND BILIARY TREE: The noncontrast liver is normal in size and contour. No biliary ductal dilatation is present. The gallbladder is unremarkable with no evidence of radiopaque gallstones, gallbladder wall thickening, or obvious pericholecystic inflammatory changes. PANCREAS: Normal contour. SPLEEN: Not enlarged. ADRENAL GLANDS: No adrenal mass. KIDNEYS AND URETERS: The kidneys are normal in size, shape, and attenuation. No hydronephrosis, hydroureter, or calculi seen. No perinephric stranding. BLADDER: Underdistended. GASTROINTESTINAL TRACT: Small and large bowel loops are of normal caliber. No small bowel obstruction. ABDOMINAL WALL: No significant hernia is appreciated. LYMPH NODES: No bulky abdominal or pelvic lymphadenopathy. VASCULAR: Normal caliber abdominal aorta. PELVIC VISCERA: The uterus and adnexa are unremarkable. Dominant follicle in the right ovary. OSSEOUS STRUCTURES: No destructive bone lesions. CT/CT abdomen pelvis wo IV con IMPRESSION: No acute abnormality in the abdomen or pelvis.
[2023-03-02 10:00] VITALS: BP 112/65; PULSE 88; RESP 16; TEMP 36.7; O2SAT 98; BMI 39.7
[2023-03-02 10:21] LABS: MANUAL DIFF FLAG NO
[2023-03-02 10:29] LABS: Appearance Urine Cloudy; Basophils Percent Auto 0.3 % (0-2); Color Urine Yellow; Eosinophils Absolute Auto 0.1 X10*3/uL (0.0-0.4); Eosinophils Percent Auto 1.8 % (0-4); Glucose Urine UA Negative (Negative); Imm Gran Abs Auto 0.01 X10*3/uL (0.00-0.03); Imm Gran Pct Auto 0.2 % (0.0-0.4); Leukocyte Esterase Urine Trace (Negative); Lymphocytes Absolute Auto 1.8 X10*3/uL (1.2-4.9); Lymphocytes Percent Auto 29.9 % (20-40); Mean Corpuscular HGB Conc 32.4 g/dl (31.0-35.0); Mean Corpuscular Volume 86.2 fL (80.0-98.0); Mean Platelet Volume 10.2 fL (9.4-12.3); Monocytes Absolute Auto 0.5 X10*3/uL (0.1-1.2); Monocytes Percent Auto 8.1 % (2-11); Neutrophils Absolute Auto 3.6 x10*3/uL (2.0-8.3); Neutrophils Percent Auto 59.7 % (45-73); Nitrite Urine Negative (Negative); PH 5.5 (5.0-9.0); Platelet Count 254 X10*3/uL (160-400); Red Blood Count 4.29 X10*6/uL (4.20-5.50); Red Cell Distribution Width 13.1 % (11.0-16.0); Specific Gravity - Urine 1.025 (1.005-1.025); UMIC TRIGGER UACC YES; Urine Blood Negative (Negative); Urine Ketones Trace mg/dL (Negative); Urine Protein Trace mg/dL (Neg-Trace)
[2023-03-02 10:31] LABS: UPreg QC Valid YES; Urine Pregnancy NEGATIVE (NEGATIVE)
[2023-03-02 10:37] LABS: Alanine Aminotransferase 10 U/L (0-31); Albumin Level 3.8 g/dL (3.5-5.0); Alkaline Phosphatase 69 U/L (39-117); Anion Gap 12 (12-20); Aspartate Amino Transferase 11 U/L (5-31); Bilirubin Total 0.4 mg/dL (0.0-1.0); Blood Urea Nitrogen 6 mg/dL (9-16); Calcium 8.9 mg/dL (8.4-10.2); Carbon Dioxide 24 mmol/L (22-29); Chloride 108 mmol/L (96-108); Estimated Glomerular Filt Rate > 60; Glucose Random 78 mg/dL (60-115); Sodium 140 mmol/L (135-145); Total Protein 7.3 g/dL (6.5-8.0)
[2023-03-02 10:40] LABS: Bacteria Urine 4+ (None Seen); RBC Urine 0-2 /HPF (0-2); Squamous Epithelial Cell Urine >20 /HPF (0-2); UACC Culture Trigger YES
[2023-03-02 10:51] VITALS: BP 115/69; PULSE 77; RESP 16; TEMP 36.9; O2SAT 99
--- NOTE | 2023-03-02 10:57 | ED_ITS ---
HPI - General Adult General Chief complaint: General Medical Stated complaint: lower/upper abd pain Time Seen by Provider: 03/02/23 10:57 Source: patient Mode of arrival: ambulatory Limitations: no limitations History of Present Illness HPI narrative: 33 yo female with no significant medical history presents to the ER for evaluation of 3 days of intermittent epigastric pain, right lower quadrant pain and back pain. She also reports foul-smelling urine. No burning or urgency with urination. She reports nausea and she vomited 2 days ago but nothing since. She reports burning pain in the abdomen that radiates up into the chest. She also has had a few episodes of loose, nonbloody stools. She states she gets i ntermittent sharp cramping pains in the RLQ and right flank that come and go. No blood in her urine. MD complaint: abdominal pain and back pain Onset (ago): day(s) (3) Location: abdomen Radiation: non-radiation Severity: moderate Quality: aching Pain Consistency: intermittent Relieving factors: none Exacerbating factors: none Associated symptoms: other (foul smelling urine) Treatments prior to arrival: none Related Data Previous Rx's Medication Instructions Recorded aspirin 81 mg tablet,delayed 162 mg PO DAILY #300 tabs 06/23/21 release (Adult Aspirin Regimen) vitamin with calcium 1 tab PO DAILY #300 tabs 06/23/21 no.72-iron 27 mg-folic acid 1 mg tablet ( Vitamins Plus Low Iron) doxylamine succinate 25 mg tablet 12.5 mg PO BEDTIME sleep 30 days 07/02/21 (Unisom (doxylamine)) #15 tabs pyridoxine (vitamin B6) 25 mg 25 mg PO TID 30 days #90 tabs 07/02/21 tablet famotidine 10 mg tablet (Pepcid AC) 10 mg PO BID 30 days #60 tabs 10/30/21 ferrous sulfate 325 mg (65 mg 325 mg PO DAILY 90 days #90 tabs 11/11/21 iron) tablet,delayed release amoxicillin 500 mg-potassium 1 tab PO BID 10 days #20 tabs 02/24/22 clavulanate 125 mg tablet (Augmentin) acetaminophen 500 mg tablet 500 mg PO Q6H PRN fever or pain 12/30/22 #14 tabs cyclobenzaprine 5 mg tablet 5 mg PO TID PRN muscle spasm #7 12/30/22 tabs pantoprazole 40 mg tablet,delayed 40 mg PO DAILY #14 tabs 03/02/23 release (Protonix) Allergies Allergy/AdvReac Type Severity Reaction Status Date / Time shellfish derived Allergy Mild Hives Verified 03/02/23 10:00 Review of Systems Review of Systems: Yes all other systems are reviewed and are negative [facility] Past Medical History Medical History Migraine Obesity (BMI 30-39.9) Surgical History H/O emergency section Family History Family History Maternal Grandmother Diabetes mellitus Maternal Aunt Cancer of breast, female Social History Social History Household Members: Children Housing: House Are you a primary ocular care technician to a significant other at home: No Do you presently have visiting nurse or other home services: No Alcohol intake: never Patient Tobacco Use Status: Never used Tobacco Smoked in Last 30 Days: No Use of substances other than those prescribed or required for medical reasons: No Agree to transfusion: Yes Advance Directives: No service: No 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al status: employed 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 Oriented X3. No acute distress. Head: normocephalic, atraumatic. Eyes: Pupils equal, round and reactive to light. ENT: Pharynx normal. No tonsillar swelling or exudate. Neck: Normal inspection. Neck supple. CVS: Normal heart rate and rhythm. Pulses normal. Respiratory: No respiratory distress. Breath sounds normal. Abdomen: Soft with mild epigastric and RLQ tenderness without rebounding or guarding, normal active +BS x4. No CVA tenderness. Skin: Skin warm and dry. Normal skin color. Normal skin turgor. No rashes. Extremities: No lower extremity edema. No joint swelling. Neuro/psych: Oriented X 3. No motor deficit. No sensory deficit. CN II-XII intact. Normal speech and cognition. Medical Decision Making Medical Decision Making [facility] Narrative: 33-year-old female presents to the ER for evaluation of epigastric pain and rig ht lower quadrant pain along with nausea, vomiting, diarrhea for the last couple of days as well. She also has a foul-smelling urine without any dysuria. Her vital signs are stable and her abdominal exam is only significant for some very mild epigastric and right lower quadrant tenderness. Doubt acute appendicitis given abdominal exam being relatively benign. Her lab workup was reassuring with normal CBC, no metabolic derangements. CT scan of her abdomen was performed which was normal. Her UA was negative for infection. Will treat for gastritis and have her follow-up with her primary care doctor. Patient counseled and is stable for discharge home Differential Diagnosis Differential Diagnoses: The differential diagnosis associated with the presentation includes Gastritis, GERD, appendicitis, gastroenteritis, diverticulitis, colitis, UTI, pyelonephritis Admission/Observation Consideration of admission/observation: Escalation of care including adm ission/observation considered RLQ tenderness, considered admission Lab Data [facility] Lab Attestation statement: I reviewed the patient's lab results. normal CBC, no significant abnormality 03/02/23 10:18 03/02/23 10:18 Labs: Lab Results 03/02/23 03/02/23 03/02/23 Range/Units 10:18 10:18 10:18 WBC 6.0 (4.8-10.8) X10*3/uL RBC 4.29 (4.20-5.50) X10*6/uL Hgb 12.0 (12.0-16.0) g/dl Hct 37.0 (37.0-47.0) % MCV 86.2 (80.0-98.0) fL MCH 28.0 (27.0-33.0) pg MCHC 32.4 (31.0-35.0) g/dl RDW 13.1 (11.0-16.0) % Plt Count 254 D (160-400) X10*3/uL MPV 10.2 (9.4-12.3) fL Immature Gran % (Auto) 0.2 (0.0-0.4) % Neut % (Auto) 59.7 (45-73) % Lymph % (Auto) 29.9 (20-40) % Hall % (Auto) 8.1 (2-11) % Eos % (Auto) 1.8 (0-4) % Baso % (Auto) 0.3 (0-2) % Lymph # (Auto) 1.8 (1.2-4.9) X10*3/uL Hall # (Auto) 0.5 (0.1-1.2) X10*3/uL Eos # (Auto) 0.1 (0.0-0.4) X10*3/uL Baso # (Auto) 0.0 (0.0-0.2) X10*3/uL Abs Immat Gran (auto) 0.01 (0.00-0.03) X10*3/uL Absolute Neuts (auto) 3.6 (2.0-8.3) x10*3/uL Absolute Nucleated RBC 0.000 (0.0-0.012) X10*3/uL Nucleated RBC % (auto) 0.0 (0.0-0.2) /100WBC Sodium 140 (135-145) mmol/L Potassium 4.0 (3.3-5.1) mmol/L Chloride 108 (96-108) mmol/L Carbon Dioxide 24 (22-29) mmol/L Anion Gap 12 (12-20) BUN 6 L (9-16) mg/dL Creatinine 0.69 (0.5-1.4) mg/dL Estim Creat Clear Calc 126.0 Estimated GFR > 60 Random Glucose 78 (60-115) mg/dL Calcium 8.9 (8.4-10.2) mg/dL Total Bilirubin 0.4 (0.0-1.0) mg/dL AST 11 (5-31) U/L ALT 10 (0-31) U/L Alkaline Phosphatase 69 (39-117) U/L Total Protein 7.3 (6.5-8.0) g/dL Albumin 3.8 (3.5-5.0) g/dL Urine Color Yellow Urine Appearance Cloudy Urine pH 5.5 (5.0-9.0) Ur Specific [place] 1.025 (1.005-1.025) Urine Protein Trace (Neg-Trace) mg/dL Urine Glucose (UA) Negative (Negative) mg/dL Urine Ketones Trace (Negative) mg/dL Urine Blood Negative (Negative) Urine Nitrite Negative (Negative) Ur Leukocyte Esterase Trace H (Negative) Urine RBC 0-2 (0-2) /HPF Urine WBC 6-10 H (0-5) /HPF Ur Squamous Epith Cells >20 (0-2) /HPF Urine Bacteria 4+ (None Seen) Hyaline Casts 6-10 (0-2) /LPF Urine Test (NEGATIVE) 03/02/23 03/02/23 Range/Units 10:18 12:25 WBC (4.8-10.8) X10*3/uL RBC (4.20-5.50) X10*6/uL Hgb (12.0-16.0) g/dl Hct (37.0-47.0) % MCV (80.0-98.0) fL MCH (27.0-33.0) pg MCHC (31.0-35.0) g/dl RDW (11.0-16.0) % Plt Count (160-400) X10*3/uL MPV (9.4-12.3) fL Immature Gran % (Auto) (0.0-0.4) % Neut % (Auto) (45-73) % Lymph % (Auto) (20-40) % Hall % (Auto) (2-11) % Eos % (Auto) (0-4) % Baso % (Auto) (0-2) % Lymph # (Auto) (1.2-4.9) X10*3/uL Hall # (Auto) (0.1-1.2) X10*3/uL Eos # (Auto) (0.0-0.4) X10*3/uL Baso # (Auto) (0.0-0.2) X10*3/uL Abs Immat Gran (auto) (0.00-0.03) X10*3/uL Absolute Neuts (auto) (2.0-8.3) x10*3/uL Absolute Nucleated RBC (0.0-0.012) X10*3/uL Nucleated RBC % (auto) (0.0-0.2) /100WBC Sodium (135-145) mmol/L Potassium (3.3-5.1) mmol/L Chloride (96-108) mmol/L Carbon Dioxide (22-29) mmol/L Anion Gap (12-20) BUN (9-16) mg/dL Creatinine (0.5-1.4) mg/dL Estim Creat Clear Calc Estimated GFR Random Glucose (60-115) mg/dL Calcium (8.4-10.2) mg/dL Total Bilirubin (0.0-1.0) mg/dL AST (5-31) U/L ALT (0-31) U/L Alkaline Phosphatase (39-117) U/L Total Protein (6.5-8.0) g/dL Albumin (3.5-5.0) g/dL Urine Color Yellow Urine Appearance Clear Urine pH 7.5 (5.0-9.0) Ur Specific [place] 1.010 (1.005-1.025) Urine Protein Negative (Neg-Trace) mg/dL Urine Glucose (UA) Negative (Negative) mg/dL Urine Ketones Negative (Negative) mg/dL Urine Blood Negative (Negative) Urine Nitrite Negative (Negative) Ur Leukocyte Esterase Negative (Negative) Urine RBC 0-2 (0-2) /HPF Urine WBC 0-5 (0-5) /HPF Ur Squamous Epith Cells 11-20 (0-2) /HPF Urine Bacteria 1+ (None Seen) Hyaline Casts 0-2 (0-2) /LPF Urine Test NEGATIVE (NEGATIVE) Independent Interpretation I performed an independent interpretation of an: CT Scan Interpretation: ct reviewed - no acute abormality Radiology Impression Discussion of test interpretation with radiology: I have reviewed the radiologist's reading. Radiologist Impression: CT/CT abdomen pelvis wo IV con IMPRESSION: No acute abnormality in the abdomen or pelvis. External Record Review External record reviewed: Office record, Outpatient record and Prior outpatient labs Prescription Management I considered prescription management with: Pain Medication Critical Care Time Critical Care Time Critical Care Time: No Discharge Plan Discharge Clinical Impression: Gastritis Patient Disposition: Home, Self-Care Instructions: Gastritis (DC) Additional Instructions: Your lab workup today was unremarkable. Your urine was negative infection and . Your CT scan was normal. Your pain is most likely due to gastritis which is and irritation and inflammation of your stomach lining. Start taking the prescribed medication as directed for this. Stick to a bland diet. Avoid foods high in acid, avoid alcohol and NSAID medications like Aleve, Motrin, Advil or ibuprofen. Follow up with your doctor as needed. Follow up with GI doctor if you symptoms persist despite dietary modifications and medication. If you develop new or worsening symptoms call 911 or come back to the ER for further evaluation. Prescriptions: New pantoprazole [Protonix] 40 mg tablet,delayed release (DR/EC) 40 mg PO DAILY Qty: 14 0RF No Action ferrous sulfate 325 mg (65 mg iron) tablet,delayed release (DR/EC) 325 mg PO DAILY 90 Days Qty: 90 3RF amoxicillin-pot clavulanate [Augmentin] 500-125 mg tablet 1 tab PO BID 10 Days Qty: 20 0RF cyclobenzaprine 5 mg tablet 5 mg PO TID PRN (Reason: muscle spasm) Qty: 7 0RF acetaminophen 500 mg tablet 500 mg PO Q6H PRN (Reason: fever or pain) Qty: 14 0RF Vitamin Plus Low Iron 27 mg iron- 1 mg tablet 1 tab PO DAILY Qty: 300 2RF aspirin [Adult Aspirin Regimen] 81 mg tablet,delayed release (DR/EC) 162 mg PO DAILY Qty: 300 2RF Unisom (doxylamine) 25 mg tablet 12.5 mg PO BEDTIME 30 Days Qty: 15 0RF pyridoxine (vitamin B6) 25 mg tablet 25 mg PO TID 30 Days Qty: 90 0RF Boostrix Tdap 2.5-8-5 Lf-mcg-Lf/0.5mL syringe 0.5 ml IM ONCE Qty: 0.5 0RF famotidine [Pepcid AC] 10 mg tablet 10 mg PO BID 30 Days Qty: 60 2RF
[2023-03-02 12:39] LABS: Appearance Urine Clear; Color Urine Yellow; Glucose Urine UA Negative (Negative); Leukocyte Esterase Urine Negative (Negative); Nitrite Urine Negative (Negative); PH 7.5 (5.0-9.0); Urine Blood Negative (Negative); Urine Ketones Negative (Negative); Urine Protein Negative (Neg-Trace)
[2023-03-02 12:41] LABS: Bacteria Urine 1+ (None Seen); Hyaline Casts Urine 0-2 /LPF (0-2); RBC Urine 0-2 /HPF (0-2); WBC Urine 0-5 /HPF (0-5)
[2023-03-02 12:51] VITALS: BP 107/69; PULSE 74; RESP 16; TEMP 36.6; O2SAT 100
== END 2023-03-02 14:01 | disposition home or self-care (01) ==
PROVIDERS: Physician Assistant; Emergency Provider Emergency Medicine; PCP Internal Medicine
DX: K29.70 Gastritis, unspecified, without bleeding (principal); E66.9 Obesity, unspecified; Z68.39 Body mass index [BMI] 39.0-39.9, adult; Z79.82 Long term (current) use of aspirin; Z79.899 Other long term (current) drug therapy
CPT/HCPCS: 36415; 74176; 80053; 81001; 81025; 85025; 87086; 87147; 99284

== ENCOUNTER 2023-03-12 19:45 | Emergency (ER) | payer OTHER, SELFPAY ==
--- NOTE | ~2023-03-12 | XR_ITS ---
EXAMINATION: XR CHEST CLINICAL INFORMATION: Chest discomfort, shortness of breath. COMPARISON: None available. TECHNIQUE: 2 views of the chest were obtained. FINDINGS: Normal appearance of the cardiomediastinal silhouette. Perihilar fullness and mild diffuse peribronchial thickening. No focal consolidation, pleural effusion or pneumothorax. No acute osseous abnormalities. The visualized upper abdomen is within normal limits. XR/XR chest 2V IMPRESSION: Findings are suggestive of reactive airways disease or an atypical/viral infection. No focal consolidation, pleural effusion or pneumothorax.
--- NOTE | 2023-03-12 19:48 | ECG_ITS ---
Test Reason : CHEST PAIN Blood Pressure : / mmHG Vent. Rate : 072 BPM Atrial Rate : 072 BPM P-R Int : 154 ms QRS Dur : 076 ms QT Int : 408 ms P-R-T Axes : 059 044 027 degrees QTc Int : 446 ms Normal sinus rhythm with sinus arrhythmia Normal ECG No previous ECGs available Referred By: Generic ED Physician Electronically Signed By:Good Ramos
[2023-03-12 19:59] VITALS: BP 108/72; PULSE 74; RESP 20; TEMP 36.9; O2SAT 99; BMI 39.9
--- NOTE | 2023-03-12 19:59 | ED_ITS ---
HPI - General Adult General Chief complaint: Chest Pain Stated complaint: discomfort in chest and back Time Seen by Provider: 03/12/23 20:10 Source: patient Mode of arrival: ambulatory Limitations: no limitations History of Present Illness HPI narrative: Patient is a 33 year old assigned female at with a history of migraines presenting to the emergency department today with a sore throat and chest tightness. Patient states that over the last 3 days she has had chest tightness and a sore throat. Patient denies any dizziness, lightheadedness, abdominal pain, nausea, vomiting, fever, chills, blurry vision, double vision, loss of vision, difficulty breathing, shortness of breath, back pain, night sweats, pain with urination, increased urinary frequency, increased urinary urgency, blood in her urine or stool, syncope or a near syncopal episode, recent trauma or falls, bowel incontinence, bladder incontinence, bowel retention, bladder retention, or any other complaints at this time. Onset (ago): day(s) (3) Location: chest Radiation: non-radiation Severity: mild Severity scale (1-10): 3 Quality: aching and dull Pain Consistency: constant Relieving factors: none Exacerbating factors: none Associated symptoms: chest pain Treatments prior to arrival: none Related Data Previous Rx's Medication Instructions Recorded aspirin 81 mg tablet,delayed 162 mg PO DAILY #300 tabs 06/23/21 release (Adult Aspirin Regimen) vitamin with calcium 1 tab PO DAILY #300 tabs 06/23/21 no.72-iron 27 mg-folic acid 1 mg tablet ( Vitamins Plus Low Iron) doxylamine succinate 25 mg tablet 12.5 mg PO BEDTIME sleep 30 days 07/02/21 (Unisom (doxylamine)) #15 tabs pyridoxine (vitamin B6) 25 mg 25 mg PO TID 30 days #90 tabs 07/02/21 tablet famotidine 10 mg tablet (Pepcid AC) 10 mg PO BID 30 days #60 tabs 10/30/21 ferrous sulfate 325 mg (65 mg 325 mg PO DAILY 90 days #90 tabs 11/11/21 iron) tablet,delayed release amoxicillin 500 mg-potassium 1 tab PO BID 10 days #20 tabs 02/24/22 clavulanate 125 mg tablet (Augmentin) acetaminophen 500 mg tablet 500 mg PO Q6H PRN fever or pain 12/30/22 #14 tabs cyclobenzaprine 5 mg tablet 5 mg PO TID PRN muscle spasm #7 12/30/22 tabs pantoprazole 40 mg tablet,delayed 40 mg PO DAILY #14 tabs 03/02/23 release (Protonix) penicillin V potassium 500 mg 500 mg PO BID 10 days #20 tabs 03/12/23 tablet prednisone 20 mg tablet 20 mg PO DAILY 7 days #7 tabs 03/12/23 Allergies Allergy/AdvReac Type Severity Reaction Status Date / Time shellfish derived Allergy Mild Hives Verified 03/02/23 10:00 Review of Systems Constitutional: Constitutional: Reports no additional constitutional complaints, Denies chills, Denies fever(s) and Denies night sweats Eyes: Eyes: Reports no additional eye complaints, Denies blurry vision, Denies change in vision, Denies diplopia, Denies eye discharge, Denies loss of vision and Denies eye pain ENT: Denies dizziness and Reports sore throat Cardiovascular: Cardiovascular: Reports no additional cardiovascular complaints, Reports chest pain, Denies lightheadedness, Denies Loss of Consciousness and Denies dyspnea Respiratory: Respiratory: Reports no additional respiratory complaints and Denies dyspnea Gastrointestinal: Gastrointestinal: Reports no additional gastrointestinal complaints, Denies abdominal pain, Denies melena, Denies hematochezia, Denies change in bowel habits and Denies change in stool character Genitourinary: Genitourinary: Denies hematuria, Denies urinary frequency, Denies dysuria, Denies urinary incontinence, Denies urinary hesitancy and Denies urinary urgency Musculoskeletal: Musculoskeletal: Reports no additional musculoskeletal compl aints, Denies numbness and Denies tingling Neurologic: Denies dizziness, Denies loss of vision, Denies numbness and Denies tingling Psychiatric: Psychiatric: Reports no additional psychiatric complaints Endocrine: Endocrine: Reports no additional endocrine complaints Hematologic/Lymphatic: Hematologic/Lymphatic: Reports no additional hematologic/lymphatic complaints Allergic/Immunologic: Allergic/Immunologic: Reports no additional allergic/immunologic complaints PMFSH Past Medical History Attestation statement: The following information was validated with the patient. Source: old records reviewed and nursing notes reviewed Medical History Cervical cancer screening Migraine Obesity (BMI 30-39.9) Surgical History H/O emergency section Family History Family History Maternal Grandmother Diabetes mellitus Maternal Aunt Cancer of breast, female Social History Social History Household Members: Children Housing: House Are you a primary child day care teacher to a significant other at home: No Do you presently have visiting nurse or other home services: No Alcohol intake: never Patient Tobacco Use Status: Never used Tobacco Smoked in Last 30 Days: No Use of substances other than those prescribed or required for medical reasons: No Agree to transfusion: Yes Advance Directives: No Advance Directives Information Provided: Yes service: No 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al status: employed 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 , 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al exposures/hazards: No Cognitive needs: No Hearing needs: No Vision needs: No Physical Exam ED Vital Signs: Vital Signs - 24 hr 03/12/23 19:59 Temperature 98.5 F Pulse Rate 74 Respiratory Rate 20 Blood Pressure 108/72 Pulse Oximetry 99 Oxygen Delivery Method Room Air BMI result Body Mass Index 39.9 Const General: cooperative, no acute distress, alert and awake Nutritional Appearance: well nourished Orientation/consciousness: patient oriented x3 Limitations: no limitations HENMT Head: Yes normal to inspection and Yes atraumatic Ears: hearing grossly normal bilaterally and external ears normal General nose exam: Normal external nose present, no nasal discharge noted and no epistaxis Face and sinus: Yes normal facial exam, No abrasion and No laceration Mouth: Normal oral and palatal mucosa present, no drooling and no muffled voice Throat: Yes abnormal tonsil (bilateral erythema and swelling of the tonsils) Eyes General: appearance normal, both eyes and all related structures Periorbital: periorbital findings normal Eyelids: Yes eyelids normal Conjunctivae: conjunctivae normal Pupils: Equal, round and reactive pupils present EOM: EOMs intact bilaterally Neck Neck: Yes normal visual inspection, Yes full ROM and Yes no lymphadenopathy Chest Chest palpation & inspection: normal inspection of the chest Resp Effort & Inspection: normal respiratory effort and able to speak in complete sentences GI Inspection: Yes normal to inspection Neuro General: patient oriented x3 and moves all extremities Cranial nerves: Yes Equal, round and reactive pupils present Cognition (Neuro): normal cognition Motor exam (neuro): 5/5 motor strength present throughout Sensory Exam: Normal double simultaneous stimulation for sensation Coordination: [id number] test normal Extrem General: Yes normal to inspection, Yes full ROM and Yes capillary refill normal Psych Appearance: grossly normal Mental Status: mental status grossly normal Affect: normal affect Attitude: cooperative Thought process: Normal thought process present Thought content: Normal thought content present Insight: Good insight present (Psych) Course Course Course Narrative: This is an RME: Additional HPI, ROS, PE not included below will be deferred to primary provider. Patient is a 33 year old female who presents emergency department for 3 days of discomfort to the throat chest and back, shortness of breath on exertion, chills, nausea without any known sick contacts. Plan: Labs, EKG, CXR, COVID-19 testing Medications Administered Discontinued Medications Generic Name Dose Route Start Last Admin Trade Name Freq PRN Reason Stop Dose Admin Penicillin V Potassium 500 mg 03/12/23 20:52 03/12/23 21:21 Penicillin V Potassium 250 Mg Tablet PO 03/12/23 20:53 500 mg ONCE ONE Administration Prednisone 20 mg 03/12/23 20:52 03/12/23 21:22 Prednisone 20 Mg Tablet PO 03/12/23 20:53 20 mg ONCE ONE Administration Medical Decision Making Medical Decision Making [facility] Narrative: Patient is a 33 year old assigned female at with a history of migraines presenting to the emergency department today with a sore throat and chest tightness. Patient's physical exam was as noted in the physical exam portion of this note. Patient's blood work was unremarkable. Patient's EKG was unremarkable. Patient's chest x-ray showed no acute process. Patient's COVID-19 and strep tests were negative. I explained my physical exam findings as well as all test results to the patient. I answered all questions asked by the patient. I stressed the importance of the patient taking her medication as prescribed. I stressed the importance of the patient following up with her primary care provider. I stressed the importance of the patient returning to the emergency department immediately if her symptoms were to worsen or if she were to develop any dizziness, shortness of breath, difficulty breathing, chest pain, blurry vision, loss of vision, nausea, vomiting, abdominal pain, fever, chills, back pain, or any other complaints. Patient verbalized agreement and understanding with this treatment plan and discharge. Differential Diagnosis Differential Diagnoses: The differential diagnosis associated with the presentation includes Pharyngitis COVID-19 Influenza Strep pharyngitis URI Viral illness NSTEMI STEMI Admission/Observation Consideration of admission/observation: Escalation of care including admission/observation considered Patient would have been admitted to the hospital had her work up had any findings where hospital admission was appropriate and her clinical presentation warranted hospital admission. Lab Data MDM Lab Attestation statement: I reviewed the patient's lab results. My interpretation of these studies and their corresponding values is that they are grossly normal. 03/12/23 20:25 03/12/23 20:25 Labs: Lab Results 03/12/23 03/12/23 03/12/23 Range/Units 20:25 20:25 20:25 WBC 7.3 (4.8-10.8) X10*3/uL RBC 4.36 (4.20-5.50) X10*6/uL Hgb 12.2 (12.0-16.0) g/dl Hct 37.1 (37.0-47.0) % MCV 85.1 (80.0-98.0) fL MCH 28.0 (27.0-33.0) pg MCHC 32.9 (31.0-35.0) g/dl RDW 12.9 (11.0-16.0) % Plt Count 271 (160-400) X10*3/uL MPV 9.8 (9.4-12.3) fL Immature Gran % (Auto) 0.1 (0.0-0.4) % Neut % (Auto) 53.1 (45-73) % Lymph % (Auto) 36.7 (20-40) % [place] % (Auto) 8.8 (2-11) % Eos % (Auto) 1.2 (0-4) % Baso % (Auto) 0.1 (0-2) % Lymph # (Auto) 2.7 (1.2-4.9) X10*3/uL [place] # (Auto) 0.6 (0.1-1.2) X10*3/uL Eos # (Auto) 0.1 (0.0-0.4) X10*3/uL Baso # (Auto) 0.0 (0.0-0.2) X10*3/uL Abs Immat Gran (auto) 0.01 (0.00-0.03) X10*3/uL Absolute Neuts (auto) 3.9 (2.0-8.3) x10*3/uL Absolute Nucleated RBC 0.000 (0.0-0.012) X10*3/uL Nucleated RBC % (auto) 0.0 (0.0-0.2) /100WBC PT 11.4 (10.0-13.1) SEC INR 1.0 (0.9-1.1) Sodium 139 (135-145) mmol/L Potassium 3.6 (3.3-5.1) mmol/L Chloride 109 H (96-108) mmol/L Carbon Dioxide 26 (22-29) mmol/L Anion Gap 8 L (12-20) BUN 8 L (9-16) mg/dL Creatinine 0.69 (0.5-1.4) mg/dL Estim Creat Clear Calc 126.3 Estimated GFR > 60 Random Glucose 86 (60-115) mg/dL Calcium 9.1 (8.4-10.2) mg/dL Total Bilirubin 0.2 (0.0-1.0) mg/dL AST 11 (5-31) U/L ALT 12 (0-31) U/L Alkaline Phosphatase 67 (39-117) U/L Troponin I High Sens (<3.5-17.0) ng/L Total Protein 7.7 (6.5-8.0) g/dL Albumin 3.9 (3.5-5.0) g/dL Lipase 14 (8-78) U/L Beta HCG, Quant mIU/mL COVID-19 (BRITTNEY) (Negative) COVID-19 Clin Com Influenza Type A (HALI) (Negative) Influenza Type B (HALI) (Negative) Influenza A & B Note S. pyogenes GrpA HALI (Negative) 03/12/23 03/12/23 03/12/23 Range/Units 20:25 20:25 20:25 WBC (4.8-10.8) X10*3/uL RBC (4.20-5.50) X10*6/uL Hgb (12.0-16.0) g/dl Hct (37.0-47.0) % MCV (80.0-98.0) fL MCH (27.0-33.0) pg MCHC (31.0-35.0) g/dl RDW (11.0-16.0) % Plt Count (160-400) X10*3/uL MPV (9.4-12.3) fL Immature Gran % (Auto) (0.0-0.4) % Neut % (Auto) (45-73) % Lymph % (Auto) (20-40) % [place] % (Auto) (2-11) % Eos % (Auto) (0-4) % Baso % (Auto) (0-2) % Lymph # (Auto) (1.2-4.9) X10*3/uL [place] # (Auto) (0.1-1.2) X10*3/uL Eos # (Auto) (0.0-0.4) X10*3/uL Baso # (Auto) (0.0-0.2) X10*3/uL Abs Immat Gran (auto) (0.00-0.03) X10*3/uL Absolute Neuts (auto) (2.0-8.3) x10*3/uL Absolute Nucleated RBC (0.0-0.012) X10*3/uL Nucleated RBC % (auto) (0.0-0.2) /100WBC PT (10.0-13.1) SEC INR (0.9-1.1) Sodium (135-145) mmol/L Potassium (3.3-5.1) mmol/L Chloride (96-108) mmol/L Carbon Dioxide (22-29) mmol/L Anion Gap (12-20) BUN (9-16) mg/dL Creatinine (0.5-1.4) mg/dL Estim Creat Clear Calc Estimated GFR Random Glucose (60-115) mg/dL Calcium (8.4-10.2) mg/dL Total Bilirubin (0.0-1.0) mg/dL AST (5-31) U/L ALT (0-31) U/L Alkaline Phosphatase (39-117) U/L Troponin I High Sens < 2.7 (<3.5-17.0) ng/L Total Protein (6.5-8.0) g/dL Albumin (3.5-5.0) g/dL Lipase (8-78) U/L Beta HCG, Quant < 2 mIU/mL COVID-19 (BRITTNEY) Negative (Negative) COVID-19 Clin Com See Note Influenza Type A (HALI) (Negative) Influenza Type B (HALI) (Negative) Influenza A & B Note S. pyogenes GrpA HALI (Negative) 03/12/23 03/12/23 Range/Units 21:00 21:20 WBC (4.8-10.8) X10*3/uL RBC (4.20-5.50) X10*6/uL Hgb (12.0-16.0) g/dl Hct (37.0-47.0) % MCV (80.0-98.0) fL MCH (27.0-33.0) pg MCHC (31.0-35.0) g/dl RDW (11.0-16.0) % Plt Count (160-400) X10*3/uL MPV (9.4-12.3) fL Immature Gran % (Auto) (0.0-0.4) % Neut % (Auto) (45-73) % Lymph % (Auto) (20-40) % [place] % (Auto) (2-11) % Eos % (Auto) (0-4) % Baso % (Auto) (0-2) % Lymph # (Auto) (1.2-4.9) X10*3/uL [place] # (Auto) (0.1-1.2) X10*3/uL Eos # (Auto) (0.0-0.4) X10*3/uL Baso # (Auto) (0.0-0.2) X10*3/uL Abs Immat Gran (auto) (0.00-0.03) X10*3/uL Absolute Neuts (auto) (2.0-8.3) x10*3/uL Absolute Nucleated RBC (0.0-0.012) X10*3/uL Nucleated RBC % (auto) (0.0-0.2) /100WBC PT (10.0-13.1) SEC INR (0.9-1.1) Sodium (135-145) mmol/L Potassium (3.3-5.1) mmol/L Chloride (96-108) mmol/L Carbon Dioxide (22-29) mmol/L Anion Gap (12-20) BUN (9-16) mg/dL Creatinine (0.5-1.4) mg/dL Estim Creat Clear Calc Estimated GFR Random Glucose (60-115) mg/dL Calcium (8.4-10.2) mg/dL Total Bilirubin (0.0-1.0) mg/dL AST (5-31) U/L ALT (0-31) U/L Alkaline Phosphatase (39-117) U/L Troponin I High Sens (<3.5-17.0) ng/L Total Protein (6.5-8.0) g/dL Albumin (3.5-5.0) g/dL Lipase (8-78) U/L Beta HCG, Quant mIU/mL COVID-19 ([facility]NEY) (Negative) COVID-19 Clin Com Influenza Type A ([facility]I) Negative (Negative) Influenza Type B ([facility]I) Negative (Negative) Influenza A & B Note See Note S. pyogenes GrpA HALI Negative (Negative) Independent Interpretation I performed an independent interpretation of an: EKG and Plain X-Ray Interpretation: My interpretation is in agreement with the radiologist's impression of this imaging study. - EXAMINATION: XR CHEST CLINICAL INFORMATION: Chest discomfort, shortness of breath. COMPARISON: None available. TECHNIQUE: 2 views of the chest were obtained. FINDINGS: Normal appearance of the cardiomediastinal silhouette. Perihilar fullness and mild diffuse peribronchial thickening. No focal consolidation, pleural effusion or pneumothorax. No acute osseous abnormalities. The visualized upper abdomen is within normal limits. XR/XR chest 2V IMPRESSION: Findings are suggestive of reactive airways disease or an atypical/viral infection. No focal consolidation, pleural effusion or pneumothorax. Dictated By: Re Roberts Signed By: Electronically signed by Re Roberts 03/12/23 2107 ---- Vent. Rate: 072 BPM ? ? Atrial Rate: 072 BPM P-R Int: 154 ms? QRS Dur: 076 ms QT Int: 408 ms ? ? ? P-R-T Axes: 059 044 027 degrees QTc Int: 446 ms ? Normal sinus rhythm with sinus arrhythmia Normal ECG No previous ECGs available DD/ 52 Radiology Impression Discussion of test interpretation with radiology: I have reviewed the radiologist's reading. Prescription Management I considered prescription management with: Antibiotic (patient prescribed an antibiotic for her pharyngitis.) and Other (patient prescribed oral steroids.) Discharge Plan Discharge Clinical Impression: Pharyngitis Patient Disposition: Home, Self-Care Instructions: Pharyngitis (ED) Additional Instructions: Follow up with your primary care provider. Return to the emergency department immediately if your symptoms worsen or if you develop any dizziness, shortness of breath, difficulty breathing, chest pain, blurry vision, loss of vision, nausea, vomiting, abdominal pain, fever, chills, back pain, or any other complaints. Prescriptions: New prednisone 20 mg tablet 20 mg PO DAILY 7 Days Qty: 7 0RF penicillin V potassium 500 mg tablet 500 mg PO BID 10 Days Qty: 20 0RF No Action ferrous sulfate 325 mg (65 mg iron) tablet,delayed release (DR/EC) 325 mg PO DAILY 90 Days Qty: 90 3RF amoxicillin-pot clavulanate [Augmentin] 500-125 mg tablet 1 tab PO BID 10 Days Qty: 20 0RF pantoprazole [Protonix] 40 mg tablet,delayed release (DR/EC) 40 mg PO DAILY Qty: 14 0RF cyclobenzaprine 5 mg tablet 5 mg PO TID PRN (Reason: muscle spasm) Qty: 7 0RF acetaminophen 500 mg tablet 500 mg PO Q6H PRN (Reason: fever or pain) Qty: 14 0RF Vitamin Plus Low Iron 27 mg iron- 1 mg tablet 1 tab PO DAILY Qty: 300 2RF aspirin [Adult Aspirin Regimen] 81 mg tablet,delayed release (DR/EC) 162 mg PO DAILY Qty: 300 2RF Unisom (doxylamine) 25 mg tablet 12.5 mg PO BEDTIME 30 Days Qty: 15 0RF pyridoxine (vitamin B6) 25 mg tablet 25 mg PO TID 30 Days Qty: 90 0RF Boostrix Tdap 2.5-8-5 Lf-mcg-Lf/0.5mL syringe 0.5 ml IM ONCE Qty: 0.5 0RF famotidine [Pepcid AC] 10 mg tablet 10 mg PO BID 30 Days Qty: 60 2RF Referrals: [facility] [place] [facility] [place]] (Call to establish and follow up with a primary care provider. If you already have a primary care provider, please follow up with them.) [facility] [place] [facility] [Provider Group] (Call to establish and follow up with a primary care provider. If you already have a primary care provider, please follow up with them.) [facility] [place] [facility] [Provider Group] (Call to establish and follow up with a primary care provider. If you already have a primary care provider, please follow up with them.) Interventions: ED Discharge Assessment Last Done: 03/12/23 21:30 Discharge Date/Time: 03/12/23 21:30 Print Language: Japanese
[2023-03-12 20:13] VITALS: PULSE 63
[2023-03-12 20:30] LABS: MANUAL DIFF FLAG NO
[2023-03-12 20:31] LABS: Basophils Percent Auto 0.1 % (0-2); Eosinophils Absolute Auto 0.1 X10*3/uL (0.0-0.4); Eosinophils Percent Auto 1.2 % (0-4); Hematocrit 37.1 % (37.0-47.0); Hemoglobin 12.2 g/dl (12.0-16.0); Imm Gran Abs Auto 0.01 X10*3/uL (0.00-0.03); Imm Gran Pct Auto 0.1 % (0.0-0.4); Lymphocytes Absolute Auto 2.7 X10*3/uL (1.2-4.9); Lymphocytes Percent Auto 36.7 % (20-40); Mean Corpuscular HGB Conc 32.9 g/dl (31.0-35.0); Mean Corpuscular Volume 85.1 fL (80.0-98.0); Mean Platelet Volume 9.8 fL (9.4-12.3); Monocytes Absolute Auto 0.6 X10*3/uL (0.1-1.2); Monocytes Percent Auto 8.8 % (2-11); Neutrophils Absolute Auto 3.9 x10*3/uL (2.0-8.3); Neutrophils Percent Auto 53.1 % (45-73); Platelet Count 271 X10*3/uL (160-400); Red Blood Count 4.36 X10*6/uL (4.20-5.50); Red Cell Distribution Width 12.9 % (11.0-16.0); White Blood Count 7.3 X10*3/uL (4.8-10.8)
[2023-03-12 20:37] LABS: Prothrombin Time 11.4 SEC (10.0-13.1)
[2023-03-12 20:46] LABS: COVID-19 Test Negative (Negative); IDNOW Serial# 55D5AD1C
[2023-03-12 20:47] LABS: Alanine Aminotransferase 12 U/L (0-31); Albumin Level 3.9 g/dL (3.5-5.0); Alkaline Phosphatase 67 U/L (39-117); Anion Gap 8 (12-20); Aspartate Amino Transferase 11 U/L (5-31); Bilirubin Total 0.2 mg/dL (0.0-1.0); Blood Urea Nitrogen 8 mg/dL (9-16); Calcium 9.1 mg/dL (8.4-10.2); Carbon Dioxide 26 mmol/L (22-29); Chloride 109 mmol/L (96-108); Creatinine Clr Calc Pharmacy 126.3; Estimated Glomerular Filt Rate > 60; Glucose Random 86 mg/dL (60-115); Lipase 14 U/L (8-78); Potassium 3.6 mmol/L (3.3-5.1); Sodium 139 mmol/L (135-145); Total Protein 7.7 g/dL (6.5-8.0)
[2023-03-12 20:58] LABS: HCG Quantitative < 2 mIU/mL; Troponin-I High Sensitivity < 2.7 ng/L (<3.5-17.0)
[2023-03-12 21:21] LABS: IDNOW Serial# 08D9AD1C; Influenza A Negative (Negative); Influenza B2 Negative (Negative)
[2023-03-12] MEDS: Penicillin V Potassium 250 MG TABLET 500 MG PO (21:21)
[2023-03-12] MEDS: predniSONE 20 MG TABLET PO (21:22)
[2023-03-12 21:39] LABS: IDNOW Serial# 08D9AD1C; Strep A Nucleic Acid Negative (Negative)
== END 2023-03-12 21:30 | disposition home or self-care (01) ==
PROVIDERS: Nurse Practitioner Family; Physician Assistant Medical; Emergency Provider Emergency Medicine
DX: J02.9 Acute pharyngitis, unspecified (principal); R07.89 Other chest pain; R06.02 Shortness of breath; Z20.822 Contact with and (suspected) exposure to COVID-19
CPT/HCPCS: 36415; 71046; 80053; 83690; 84484; 84702; 85025; 85610; 87502; 87635; 87651; 93005; 99284; 99285

== ENCOUNTER → 2023-03-12 19:48 | Outpatient (BNV) | payer OTHER, SELFPAY | PROVIDERS: Emergency Provider Emergency Medicine; Visit Provider Internal Medicine Cardiovascular Disease | DX: I49.9 Cardiac arrhythmia, unspecified (principal) | CPT/HCPCS: 93010 ==

== ENCOUNTER 2023-04-08 11:35 | Emergency (ER) | payer OTHER, SELFPAY ==
[2023-04-08 11:37] VITALS: BP 119/68; PULSE 89; RESP 19; TEMP 36.6; O2SAT 98; BMI 40.2
--- NOTE | 2023-04-08 11:37 | ED.GENADULT ---
HPI - General Adult General Chief complaint: General Medical Stated complaint: swollen tonsils Time Seen by Provider: 04/08/23 12:23 Source: patient, RN notes reviewed and old records reviewed Mode of arrival: ambulatory Limitations: no limitations History of Present Illness HPI narrative: 33 year old female w/ no significant pmhx presents to the ED today for a complaint of swollen tonsils. She had strep throat recently in February. She states that she had chills, headache, sore throat, and ear pain x1 day. She states she hasn't been able to eat much secondary to the pain/discomfort. She denies seeing any exudate, fever, nausea, vomiting, cough, SOB. Onset (ago): day(s) (1) Location: mouth (tonsils) Severity: mild Relieving factors: none Related Data Previous Rx's Medication Instructions Recorded aspirin 81 mg tablet,delayed 162 mg PO DAILY #300 tabs 06/23/21 release (Adult Aspirin Regimen) vitamin with calcium 1 tab PO DAILY #300 tabs 06/23/21 no.72-iron 27 mg-folic acid 1 mg tablet ( Vitamins Plus Low Iron) doxylamine succinate 25 mg tablet 12.5 mg PO BEDTIME sleep 30 days 07/02/21 (Unisom (doxylamine)) #15 tabs pyridoxine (vitamin B6) 25 mg 25 mg PO TID 30 days #90 tabs 07/02/21 tablet famotidine 10 mg tablet (Pepcid AC) 10 mg PO BID 30 days #60 tabs 10/30/21 ferrous sulfate 325 mg (65 mg 325 mg PO DAILY 90 days #90 tabs 11/11/21 iron) tablet,delayed release amoxicillin 500 mg-potassium 1 tab PO BID 10 days #20 tabs 02/24/22 clavulanate 125 mg tablet (Augmentin) acetaminophen 500 mg tablet 500 mg PO Q6H PRN fever or pain 12/30/22 #14 tabs cyclobenzaprine 5 mg tablet 5 mg PO TID PRN muscle spasm #7 12/30/22 tabs pantoprazole 40 mg tablet,delayed 40 mg PO DAILY #14 tabs 03/02/23 release (Protonix) penicillin V potassium 500 mg 500 mg PO BID 10 days #20 tabs 03/12/23 tablet prednisone 20 mg tablet 20 mg PO DAILY 7 days #7 tabs 03/12/23 amoxicillin 875 mg-potassium 1 tab PO BID 7 days #14 tabs 04/08/23 clavulanate 125 mg tablet Allergies Allergy/AdvReac Type Severity Reaction Status Date / Time shellfish derived Allergy Mild Hives Verified 04/08/23 11:37 Review of Systems Review of Systems: Constitutional: (+) chills, No Fever, No Fatigue, No Malaise ENT/Mouth: (+) ear pain, (+) sore throat, No Nasal Congestion, No Sinus Pain, No Hoarseness, No Rhinorrhea, Eyes: No Eye Pain, No Swelling, No Redness, No Vision Changes Cardiovascular: No Chest Pain, No SOB, No Edema, No Palpitations Respiratory: No Cough, No Sputum, No Dyspnea Gastrointestinal: No Nausea, No Vomiting, No Diarrhea, No Constipation, No Abdominal pain Musculoskeletal: No joint pain, No Myalgias, No Joint Swelling Skin: No Skin Lesions, No rash Neuro: (+) Headache, No Weakness, No Numbness, No Paresthesias Yes all other systems are reviewed and are negative Constitutional: Constitutional: Reports as per [facility] Past Medical History Attestation statement: The following information was validated with the patient. Source: old records reviewed Medical History Cervical cancer screening Migraine Obesity (BMI 30-39.9) Surgical History H/O emergency section Family History Family History Maternal Grandmother Diabetes mellitus Maternal Aunt Cancer of breast, female Social History Social History Household Members: Children Housing: House Are you a primary healthcare insurance sales agent to a significant other at home: No Do you presently have visiting nurse or other home services: No Alcohol intake: never Patient Tobacco Use Status: Never used Tobacco Agree to transfusion: Yes Advance Directives: No Advance Directives Information Provided: Yes service: No 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al status: employed 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 , 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al exposures/hazards: No Cognitive needs: No Hearing needs: No Vision needs: No Physical Exam ED Vital Signs: Vital Signs - 24 hr 04/08/23 11:37 Temperature 98 F Pulse Rate 89 Respiratory Rate 19 Blood Pressure 119/68 Pulse Oximetry 98 Oxygen Delivery Method Room Air BMI result Body Mass Index 40.2 Const General: cooperative, healthy appearing and no acute distress Orientation/consciousness: patient oriented x3 Limitations: no limitations HENMT Head: Yes normal to inspection and Yes atraumatic Ears: hearing grossly normal bilaterally, external ears normal, TM's normal bilaterally and mastoids normal General nose exam: Normal external nose present and Normal nares present Face and sinus: Yes normal facial exam Mouth: tongue normal Teeth and gingiva: dentition normal and gingiva normal Throat: Yes uvula midline, Yes abnormal tonsil (bilateral erythema & swelling, no exudates noted), No uvula laterally displaced and No uvular edema Eyes General: appearance normal, both eyes and all related structures EOM: EOMs intact bilaterally Neck Other: + bilateral submandibular lymphadenopathy Neck: Yes normal visual inspection, Yes no meningeal signs, No anterior neck swelling and No torticollis Lymphatic: no lymphadenopathy noted Resp Effort & Inspection: normal respiratory effort, no respiratory distress and no stridor Auscultation: clear to auscultation bilaterally and no crackles Cardio Rate: regular rate Heart sounds: S1 normal heart sound present and S2 normal heart sound present Skin Rashes: no rashes Wounds: no wounds Neuro General: patient oriented x3, tone normal and no meningeal signs Cranial nerves: Yes CN's II-XII intact bilaterally Gait exam (Neuro): Normal gait present Extrem General: Yes normal to inspection Course Course Course Narrative: RME performed by Lexie Vasquez PA-C. Patient is a 33 year old assigned female at presenting to the emergency department with a sore throat and swollen tonsils. Swabs ordered. Patient placed back in the waiting room pending room availability and results. -Strep positive. COVID-19 negative Results discussed with patient including worrisome signs and symptoms and strict return precautions, and when to return to the emergency department. They verbalized understanding and feel safe for discharge at this time. 33 year old female w/ no significant pmhx presents to the ED today for a complaint of swollen tonsils. Medical Decision Making Medical Decision Making MDM Narrative: 33 year old female w/ no significant pmhx presents to the ED today for a complaint of swollen tonsils. On exam VSS, NAD, PE as above with b/l tonsillar swelling, uvula midline, no signs of trismus, tracheal deviation, or muffled hot potato voice . Likely strep throat vs viral syndrome. No evidence of peritonsilar abscess, retropharyngeal abscess, influenza, COVID, or mononucleosis. Plan: Strep throat & covid swabs, Abx if Strep (+), supportive care Please refer to course for remaining clinical decision making, interpretation of labs/imaging results, and discussions with consultants and/or family members. Differential Diagnosis Differential Diagnoses: The differential diagnosis associated with the presentation includes As above Admission/Observation Consideration of admission/observation: Escalation of care including admission/observation considered Lab Data MDM Lab Attestation statement: I reviewed the patient's lab results. Labs: Lab Results 04/08/23 04/08/23 Range/Units 11:40 11:41 COVID-19 ([facility]) Negative (Negative) COVID-19 Clin Com See Note S. pyogenes GrpA HALI Positive A (Negative) Radiology Impression Discussion of test interpretation with radiology: I have reviewed the radiologist's reading. External Record Review External record reviewed: Inpatient record, Office record, Outpatient record, Prior outpatient labs, Prior outpatient radiology, Primary care record and Outside ED record Tests considered The following testing was considered but not selected: As above Prescription Management I considered prescription management with: Pain Medication and Antibiotic Discharge Plan Discharge Clinical Impression: Acute streptococcal pharyngitis Patient Disposition: Home, Self-Care Instructions: Strep Throat (DC) Additional Instructions: You have strep throat Augmentin as an antibiotic please take as prescribed Follow-up with ENT due to recurrent strep throat infections Gargle with warm salt water take Tylenol/ Motrin as needed for pain/swelling If symptoms persist or worsen return to the ED Prescriptions: New amoxicillin-pot clavulanate 875-125 mg tablet 1 tab PO BID 7 Days Qty: 14 0RF No Action ferrous sulfate 325 mg (65 mg iron) tablet,delayed release (DR/EC) 325 mg PO DAILY 90 Days Qty: 90 3RF amoxicillin-pot clavulanate [Augmentin] 500-125 mg tablet 1 tab PO BID 10 Days Qty: 20 0RF pantoprazole [Protonix] 40 mg tablet,delayed release (DR/EC) 40 mg PO DAILY Qty: 14 0RF cyclobenzaprine 5 mg tablet 5 mg PO TID PRN (Reason: muscle spasm) Qty: 7 0RF acetaminophen 500 mg tablet 500 mg PO Q6H PRN (Reason: fever or pain) Qty: 14 0RF prednisone 20 mg tablet 20 mg PO DAILY 7 Days Qty: 7 0RF penicillin V potassium 500 mg tablet 500 mg PO BID 10 Days Qty: 20 0RF Vitamin Plus Low Iron 27 mg iron- 1 mg tablet 1 tab PO DAILY Qty: 300 2RF aspirin [Adult Aspirin Regimen] 81 mg tablet,delayed release (DR/EC) 162 mg PO DAILY Qty: 300 2RF Unisom (doxylamine) 25 mg tablet 12.5 mg PO BEDTIME 30 Days Qty: 15 0RF pyridoxine (vitamin B6) 25 mg tablet 25 mg PO TID 30 Days Qty: 90 0RF Boostrix Tdap 2.5-8-5 Lf-mcg-Lf/0.5mL syringe 0.5 ml IM ONCE Qty: 0.5 0RF famotidine [Pepcid AC] 10 mg tablet 10 mg PO BID 30 Days Qty: 60 2RF Referrals: Vin Aponte [Physician] - Physician,Unknown J [Primary Care Provider] - 1 week Interventions: ED Discharge Assessment Last Done: 04/08/23 13:07 Discharge Date/Time: 04/08/23 13:08
[2023-04-08 12:04] LABS: IDNOW Serial# 08D9AD1C; Strep A Nucleic Acid Positive (Negative)
[2023-04-08 12:14] LABS: COVID-19 Test Negative (Negative); IDNOW Serial# BCCEAD1C
== END 2023-04-08 13:08 | disposition home or self-care (01) ==
PROVIDERS: Physician Assistant Medical; Emergency Provider Emergency Medicine Emergency Medical Services
DX: J02.0 Streptococcal pharyngitis (principal); Z20.822 Contact with and (suspected) exposure to COVID-19
CPT/HCPCS: 87635; 87651; 99283

== ENCOUNTER 2023-06-26 14:21 | Emergency (ER) | payer BC, OTHER, SELFPAY ==
--- NOTE | ~2023-06-26 | XR_ITS ---
EXAMINATION: XR THORACIC SPINE CLINICAL INFORMATION: Pain COMPARISON: None available. TECHNIQUE: 3 views of the thoracic spine were obtained. FINDINGS: There is no fracture or bone destruction seen and the vertebral alignment is normal. There is no disc space narrowing. There is no abnormality of the paraspinal soft tissues. XR/XR thoracic spine 3V IMPRESSION: Unremarkable examination.
--- NOTE | ~2023-06-26 | XR_ITS ---
EXAMINATION: XR RIBS, LEFT CLINICAL INFORMATION: Pain COMPARISON: Previous chest x-ray February TECHNIQUE: 3 views of the left ribs and one view of the chest were obtained. FINDINGS: Lungs are clear. No consolidation, pneumothorax, or pleural effusion. The cardiomediastinal silhouette and pulmonary vasculature are normal. Osseous structures are unremarkable. Ribs are intact. No fractures are identified. XR/XR ribs LT min 3V w CXR1V IMPRESSION: Unremarkable examination.
[2023-06-26 14:43] VITALS: BP 113/70; PULSE 81; RESP 18; TEMP 36.6; O2SAT 99; BMI 40.0
--- NOTE | 2023-06-26 14:43 | ED_ITS ---
HPI - Back Pain/Injury General Chief Complaint: Back Pain/Injury Stated Complaint: Back inj Time Seen by Provider: 06/26/23 15:33 Related Data Previous Rx's Medication Instructions Recorded aspirin 81 mg tablet,delayed 162 mg (2 x 81 mg) PO DAILY #300 06/23/21 release (Adult Aspirin Regimen) tabs vitamin with calcium 1 tab PO DAILY #300 tabs 06/23/21 no.72-iron 27 mg-folic acid 1 mg tablet ( Vitamins Plus Low Iron) doxylamine succinate 25 mg tablet 12.5 mg (1/2 x 25 mg) PO BEDTIME 07/02/21 (Unisom (doxylamine)) sleep 30 days #15 tabs pyridoxine (vitamin B6) 25 mg 25 mg PO TID 30 days #90 tabs 07/02/21 tablet famotidine 10 mg tablet (Pepcid AC) 10 mg PO BID 30 days #60 tabs 10/30/21 ferrous sulfate 325 mg (65 mg 325 mg PO DAILY 90 days #90 tabs 11/11/21 iron) tablet,delayed release amoxicillin 500 mg-potassium 1 tab PO BID 10 days #20 tabs 02/24/22 clavulanate 125 mg tablet (Augmentin) acetaminophen 500 mg tablet 500 mg PO Q6H PRN fever or pain 12/30/22 #14 tabs cyclobenzaprine 5 mg tablet 5 mg PO TID PRN muscle spasm #7 12/30/22 tabs pantoprazole 40 mg tablet,delayed 40 mg PO DAILY #14 tabs 03/02/23 release (Protonix) penicillin V potassium 500 mg 500 mg PO BID 10 days #20 tabs 03/12/23 tablet prednisone 20 mg tablet 20 mg PO DAILY 7 days #7 tabs 03/12/23 amoxicillin 875 mg-potassium 1 tab PO BID 7 days #14 tabs 04/08/23 clavulanate 125 mg tablet acetaminophen 500 mg tablet 1,000 mg (2 x 500 mg) PO QID PRN 06/26/23 pain #30 tabs cyclobenzaprine 5 mg tablet 5 mg PO TID PRN muscle spasm #14 06/26/23 tabs ibuprofen 600 mg tablet 600 mg PO Q6H PRN pain #20 tabs 06/26/23 Allergies Allergy/AdvReac Type Severity Reaction Status Date / Time shellfish derived Allergy Mild Hives Verified 06/26/23 14:43 [facility] Past Medical History Medical History Cervical cancer screening Migraine Obesity (BMI 30-39.9) Surgical History H/O emergency section Family History Family History Maternal Grandmother Diabetes mellitus Maternal Aunt Cancer of breast, female Social History Social History Household Members: Children Housing: House Are you a primary critical care technician to a significant other at home: No Do you presently have visiting nurse or other home services: No Alcohol intake: never Patient Tobacco Use Status: Never used Tobacco Agree to transfusion: Yes Advance Directives: No Advance Directives Information Provided: No service: No 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al status: employed 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 denies hematuria, SOB, direct injury/fall, incontinence/retention +L sided rib/thoracic back ttp. abd soft nontender. no erythema/rash UA, XRs ordered Full HPI, ROS and PE to be performed by primary ED provider. Medical Decision Making Lab Data Labs: Lab Results 06/26/23 Range/Units 16:08 Urine Color Yellow Urine Appearance Clear Urine pH 6.0 (5.0-9.0) Ur Specific [place] >= 1.030 H (1.005-1.025) Urine Protein Negative (Neg-Trace) mg/dL Urine Glucose (UA) Negative (Negative) mg/dL Urine Ketones Trace (Negative) mg/dL Urine Blood Trace H (Negative) Urine Nitrite Negative (Negative) Ur Leukocyte Esterase Negative (Negative) Urine RBC 0-2 (0-2) /HPF Urine WBC 0-5 (0-5) /HPF Ur Squamous Epith Cells 6-10 (0-2) /HPF Urine Bacteria 1+ (None Seen) Hyaline Casts 3-5 (0-2) /LPF Urine Test NEGATIVE (NEGATIVE) Discharge Plan Discharge Clinical Impression: Back strain Patient Disposition: Home, Self-Care Additional Instructions: x-ray was normal, urine test was normal test negative Muscle strains usually improve in a few days If failing to improve follow with primary doctor Return to the ER any time any worse condition or any concerns Prescriptions: New acetaminophen 500 mg tablet 1,000 mg PO QID PRN (Reason: pain) Qty: 30 0RF ibuprofen 600 mg tablet 600 mg PO Q6H PRN (Reason: pain) Qty: 20 0RF cyclobenzaprine 5 mg tablet 5 mg PO TID PRN (Reason: muscle spasm) Qty: 14 0RF No Action ferrous sulfate 325 mg (65 mg iron) tablet,delayed release (DR/EC) 325 mg PO DAILY 90 Days Qty: 90 3RF amoxicillin-pot clavulanate [Augmentin] 500-125 mg tablet 1 tab PO BID 10 Days Qty: 20 0RF pantoprazole [Protonix] 40 mg tablet,delayed release (DR/EC) 40 mg PO DAILY Qty: 14 0RF amoxicillin-pot clavulanate 875-125 mg tablet 1 tab PO BID 7 Days Qty: 14 0RF cyclobenzaprine 5 mg tablet 5 mg PO TID PRN (Reason: muscle spasm) Qty: 7 0RF acetaminophen 500 mg tablet 500 mg PO Q6H PRN (Reason: fever or pain) Qty: 14 0RF prednisone 20 mg tablet 20 mg PO DAILY 7 Days Qty: 7 0RF penicillin V potassium 500 mg tablet 500 mg PO BID 10 Days Qty: 20 0RF Vitamin Plus Low Iron 27 mg iron- 1 mg tablet 1 tab PO DAILY Qty: 300 2RF aspirin [Adult Aspirin Regimen] 81 mg tablet,delayed release (DR/EC) 162 mg PO DAILY Qty: 300 2RF Unisom (doxylamine) 25 mg tablet 12.5 mg PO BEDTIME 30 Days Qty: 15 0RF pyridoxine (vitamin B6) 25 mg tablet 25 mg PO TID 30 Days Qty: 90 0RF Boostrix Tdap 2.5-8-5 Lf-mcg-Lf/0.5mL syringe 0.5 ml IM ONCE Qty: 0.5 0RF famotidine [Pepcid AC] 10 mg tablet 10 mg PO BID 30 Days Qty: 60 2RF Stand Alone Forms: Work/School Release
[2023-06-26 16:18] LABS: Appearance Urine Clear; Color Urine Yellow; Glucose Urine UA Negative (Negative); Leukocyte Esterase Urine Negative (Negative); Nitrite Urine Negative (Negative); Specific Gravity - Urine >= 1.030 (1.005-1.025); UMIC TRIGGER UACC YES; Urine Blood Trace (Negative); Urine Ketones Trace mg/dL (Negative); Urine Protein Negative (Neg-Trace)
[2023-06-26 16:19] LABS: UPreg QC Valid YES; Urine Pregnancy NEGATIVE (NEGATIVE)
[2023-06-26 16:37] LABS: Bacteria Urine 1+ (None Seen); RBC Urine 0-2 /HPF (0-2); WBC Urine 0-5 /HPF (0-5)
== END 2023-06-26 17:01 | disposition home or self-care (01) ==
PROVIDERS: Physician Assistant; Emergency Provider Emergency Medicine; PCP Internal Medicine
DX: S39.012A Strain of muscle, fascia and tendon of lower back, initial encounter (principal); X58.XXXA Exposure to other specified factors, initial encounter; Y93.9 Activity, unspecified; Y92.9 Unspecified place or not applicable; Y99.9 Unspecified external cause status; R07.81 Pleurodynia; M54.89 Other dorsalgia
CPT/HCPCS: 71101; 72072; 81001; 81025; 99283; 99284

== ENCOUNTER 2023-07-11 09:33 | Emergency (ER) | payer BC, OTHER, SELFPAY ==
[2023-07-11 09:53] VITALS: BP 113/72; PULSE 102; RESP 18; TEMP 36.7; O2SAT 97; BMI 39.9
--- NOTE | 2023-07-11 10:41 | ED.HA ---
HPI - Headache General Chief Complaint: Headache Stated Complaint: ear pain and burning Time Seen by Provider: 07/11/23 09:55 Source: patient Mode of arrival: ambulatory Limitations: no limitations History of Present Illness HPI Narrative: This is a 33-year-old female history of obesity and migraines presenting to the emergency department for evaluation of cough, fatigue, malaise, myalgias, bilateral ear pain left greater than right, headache localized to the frontal region/temporal region, congestion for the past week or so. It initially started with GI symptoms which have since resolved. Patient reports multiple sick contacts including daughter at home and mother. Patient denies chest pain, shortness of breath, vision changes, dizziness, weakness. Negative on the NIH stroke scalE Related Data Previous Rx's Medication Instructions Recorded aspirin 81 mg tablet,delayed 162 mg (2 x 81 mg) PO DAILY #300 06/23/21 release (Adult Aspirin Regimen) tabs vitamin with calcium 1 tab PO DAILY #300 tabs 06/23/21 no.72-iron 27 mg-folic acid 1 mg tablet ( Vitamins Plus Low Iron) doxylamine succinate 25 mg tablet 12.5 mg (1/2 x 25 mg) PO BEDTIME 07/02/21 (Unisom (doxylamine)) sleep 30 days #15 tabs pyridoxine (vitamin B6) 25 mg 25 mg PO TID 30 days #90 tabs 07/02/21 tablet famotidine 10 mg tablet (Pepcid AC) 10 mg PO BID 30 days #60 tabs 10/30/21 ferrous sulfate 325 mg (65 mg 325 mg PO DAILY 90 days #90 tabs 11/11/21 iron) tablet,delayed release amoxicillin 500 mg-potassium 1 tab PO BID 10 days #20 tabs 02/24/22 clavulanate 125 mg tablet (Augmentin) acetaminophen 500 mg tablet 500 mg PO Q6H PRN fever or pain 12/30/22 #14 tabs cyclobenzaprine 5 mg tablet 5 mg PO TID PRN muscle spasm #7 12/30/22 tabs pantoprazole 40 mg tablet,delayed 40 mg PO DAILY #14 tabs 03/02/23 release (Protonix) penicillin V potassium 500 mg 500 mg PO BID 10 days #20 tabs 03/12/23 tablet prednisone 20 mg tablet 20 mg PO DAILY 7 days #7 tabs 03/12/23 amoxicillin 875 mg-potassium 1 tab PO BID 7 days #14 tabs 04/08/23 clavulanate 125 mg tablet acetaminophen 500 mg tablet 1,000 mg (2 x 500 mg) PO QID PRN 06/26/23 pain #30 tabs cyclobenzaprine 5 mg tablet 5 mg PO TID PRN muscle spasm #14 06/26/23 tabs ibuprofen 600 mg tablet 600 mg PO Q6H PRN pain #20 tabs 06/26/23 fluticasone propionate 50 1 spray intranasal DAILY #16 grams 07/11/23 mcg/actuation nasal spray,suspension (Flonase Allergy Relief) Allergies Allergy/AdvReac Type Severity Reaction Status Date / Time shellfish derived Allergy Mild Hives Verified 07/11/23 09:53 Review of Systems Review of Systems: Constitutional : No Weight loss, No Fever, No Chills, + Fatigue, + Malaise ENT/Mouth : No sore throat, No Rhinorrhea, + ear pain, + congestion Eyes: No Eye Pain, No Swelling, No Redness Cardiovascular : No Chest Pain, No SOB, No Dyspnea on Exertion, No Orthopnea, No Edema, No Palpitations Respiratory : + Cough, No Sputum, No Wheezing Gastrointestinal : No Nausea, No Vomiting, No Diarrhea, No Constipation, No abdominal Pain, No Hematochezia, No Melena Genitourinary : No Dysuria, No Urinary Frequency, No Hematuria, Musculoskeletal : No joint pain, No Myalgias, No Joint Swelling Skin : No Skin Lesions, No rash Neuro : No Weakness, No Numbness, No Dizziness, No Headache Psych : No Anxiety/Panic, No Depression All other systems reviewed and are negative Yes all other systems are reviewed and are negative [facility] Past Medical History Attestation statement: The following information was validated with the patient. Source: old records reviewed and nursing notes reviewed Medical History Cervical cancer screening Migraine Obesity (BMI 30-39.9) Surgical History H/O emergency section Family History Family History Maternal Grandmother Diabetes mellitus Maternal Aunt Cancer of breast, female Social History Social History Household Members: Children Housing: House Are you a primary home care music therapist to a significant other at home: No Do you presently have visiting nurse or other home services: No Alcohol intake: never Patient Tobacco Use Status: Never used Tobacco Agree to transfusion: Yes Advance Directives: No Advance Directives Information Provided: No service: No 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al status: employed 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: The patient states that she is a [employer] , 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al exposures/hazards: No Cognitive needs: No Hearing needs: No Vision needs: No Physical Exam Vital Signs: Vital Signs: Last Vital Signs Temp 98.1 F 07/11/23 09:53 Pulse 102 H 07/11/23 09:53 Resp 18 07/11/23 09:53 BP 113/72 07/11/23 09:53 Pulse Ox 97 07/11/23 09:53 O2 Del Method Room Air 07/11/23 09:53 BMI result Body Mass Index 39.9 vss- slight tachycardia likely due to viral ilness. Appearance: Alert.? Oriented X3.? No acute distress.? Head: Normocephalic, atraumatic, no step-offs or deformities Eyes: Pupils equal, round and reactive to light.? ENT: Pharynx normal. b/l ear effusions. Normal TM no bullging or errythema b/l. Normal ear canal. No mastroid tenderness. ? Neck: Normal inspection.? Neck supple.? CVS: Normal heart rate and rhythm.? Pulses normal.? Respiratory: No respiratory distress.? Breath sounds normal.? Abdomen: Soft and nontender.? Skin: Skin warm and dry.? Normal skin color.? Normal skin turgor.? Extremities: No lower extremity edema.? No calf ttp. 5/5 strength to bilateral upper and lower extremities Neuro: Oriented X 3.? No motor deficit.? No sensory deficit. CN 2-12 intact Course Reevaluation(s) Reevaluation #1: The patient noted to be COVID positive. Reviewed CDC guidelines with her and outlined them on discharge. Will not a candidate for antiviral therapy as her symptoms have been ongoing for a week. Educated patient on diagnosis and treatment plan, answered all question, patient verbalizes understanding. At this time patient will be discharged home, advised to return with new or worsening symptoms. Educated on worrisome signs and symptoms and when to return. At this time I feel comfortable discharge home. Time: 11:35 Medical Decision Making Medical Decision Making [facility] Narrative: 1043 33 yo f presents w/ uri sx X 7days. No CP, sob, fevers or chills. This is likely an upper respiratory infection versus bronchitis versus allergies PE b/l ear effusions. Normal TM no bullging or errythema b/l. Normal ear canal. No mastroid tenderness. Neuro nonfocal. Likely upper respiratory infection versus bronchitis versus allergies versus sinusitis. Unlikely intracranial hemorrhage, stroke, posterior stroke, meningitis, encephalitis, pneumonia, pulmonary embolism. I do not suspect temporal arteritis Plan at this time viral testing and supportive measures Differential Diagnosis Differential Diagnoses: The differential diagnosis associated with the presentation includes Likely upper respiratory infection versus bronchitis versus allergies versus sinusitis. Unlikely intracranial hemorrhage, stroke, posterior stroke, meningitis, encephalitis, pneumonia, pulmonary embolism. I do not suspect temporal arteritis Admission/Observation Consideration of admission/observation: Escalation of care including [facility] Lab Data [facility] Lab Attestation statement: I reviewed the patient's lab results. Labs: Lab Results 07/11/23 Range/Units 11:09 COVID-19 ([facility]NEY) Positive A (Negative) COVID-19 Clin Com Prescription Management I considered prescription management with: Other (ibuprofen Q6H, tylenol Q4H ) Critical Care Time Critical Care Time Critical Care Time: No Discharge Plan Discharge Clinical Impression: COVID-19 Patient Disposition: Home, Self-Care Instructions: Upper Respiratory Infection (ED), How To Wash Your Hands (ED), Viral Syndrome (ED), COVID-19 (Coronavirus Disease 2019) (ED) Additional Instructions: Take your medications as prescribed. If you were prescribed antibiotics today, it is important that you take your medication to their entirety, do not skip any doses, do not finish them early. Today you tested positive for COVID-19. Take Ibuprofen or Tylenol as needed for fevers or body aches. Quarantine for 5 days and ensure you wear a mask. After 5 days you should wear a mask for 5 days after that. Practice social distancing and good hand hygiene. Drink plenty of fluids. Follow-up with your primary care provider this week. Return to the emergency department with new or worsening symptoms. In case of emergency call 911 You can purchase a pulse oximeter from your local pharmacy or grocery store, and monitor your oxygen saturation if it goes below 94% you should return to the emergency department for further evaluation. You can take ibuprofen every 6 hours Tylenol every 4 hours as needed for fevers, chills, pain or discomfort. Do not exceed maximum daily dose is listed on packaging. Prescriptions: New fluticasone propionate [Flonase Allergy Relief] 50 mcg/actuation spray,suspension 1 spray intranasal DAILY Qty: 16 0RF Rx Instructions: administer into each nostril No Action ferrous sulfate 325 mg (65 mg iron) tablet,delayed release (DR/EC) 325 mg PO DAILY 90 Days Qty: 90 3RF amoxicillin-pot clavulanate [Augmentin] 500-125 mg tablet 1 tab PO BID 10 Days Qty: 20 0RF pantoprazole [Protonix] 40 mg tablet,delayed release (DR/EC) 40 mg PO DAILY Qty: 14 0RF amoxicillin-pot clavulanate 875-125 mg tablet 1 tab PO BID 7 Days Qty: 14 0RF cyclobenzaprine 5 mg tablet 5 mg PO TID PRN (Reason: muscle spasm) Qty: 7 0RF acetaminophen 500 mg tablet 500 mg PO Q6H PRN (Reason: fever or pain) Qty: 14 0RF prednisone 20 mg tablet 20 mg PO DAILY 7 Days Qty: 7 0RF penicillin V potassium 500 mg tablet 500 mg PO BID 10 Days Qty: 20 0RF acetaminophen 500 mg tablet 1,000 mg PO QID PRN (Reason: pain) Qty: 30 0RF ibuprofen 600 mg tablet 600 mg PO Q6H PRN (Reason: pain) Qty: 20 0RF cyclobenzaprine 5 mg tablet 5 mg PO TID PRN (Reason: muscle spasm) Qty: 14 0RF Vitamin Plus Low Iron 27 mg iron- 1 mg tablet 1 tab PO DAILY Qty: 300 2RF aspirin [Adult Aspirin Regimen] 81 mg tablet,delayed release (DR/EC) 162 mg PO DAILY Qty: 300 2RF Unisom (doxylamine) 25 mg tablet 12.5 mg PO BEDTIME 30 Days Qty: 15 0RF pyridoxine (vitamin B6) 25 mg tablet 25 mg PO TID 30 Days Qty: 90 0RF Boostrix Tdap 2.5-8-5 Lf-mcg-Lf/0.5mL syringe 0.5 ml IM ONCE Qty: 0.5 0RF famotidine [Pepcid AC] 10 mg tablet 10 mg PO BID 30 Days Qty: 60 2RF Referrals: Carmita hCa MD [Primary Care Provider] - Stand Alone Forms: Work/School Release
[2023-07-11 11:31] LABS: IDNOW Serial# 08D9AD1C
[2023-07-11 11:32] LABS: COVID-19 Test Positive (Negative)
[2023-07-11 11:46] LABS: IDNOW Serial# 9DB6401D; Influenza A Negative (Negative); Influenza B2 Negative (Negative)
== END 2023-07-11 11:57 | disposition home or self-care (01) ==
PROVIDERS: Physician Assistant; Emergency Provider Emergency Medicine; PCP Internal Medicine
DX: U07.1 COVID-19 (principal)
CPT/HCPCS: 87502; 87635; 99282; 99283

== ENCOUNTER 2023-11-29 19:23 | Emergency (ER) | payer OTHER, SELFPAY ==
--- NOTE | ~2023-11-29 | CT_ITS ---
EXAMINATION: CT HEAD WITHOUT CONTRAST CLINICAL INFORMATION: Head injury. COMPARISON: None available. TECHNIQUE: Contiguous axial imaging was performed from the skull base to vertex without intravenous administration of contrast. This CT examination was performed using dose optimization techniques as appropriate, variously including the following: *Automated exposure control *Adjustment of mA and/or kV according to patient size (this includes techniques or standardized protocols for targeted exams where dose is matched to indication/reason for exam; i.e. extremities or head) *Use of iterative reconstruction technique DLP: 635 mGy-cm FINDINGS: There is no acute intracranial hemorrhage. There is no evidence of acute/subacute cerebral or cerebellar infarction. There is no midline shift, mass effect, or extra-axial fluid collection. The ventricles are normal in size and configuration. The orbits are symmetric and within normal limits. The calvarium is intact. The mastoid air cells are well aerated. The paranasal sinuses are clear. CT/CT head/brain wo IV con IMPRESSION: No acute intracranial pathology.
--- NOTE | ~2023-11-29 | CT_ITS ---
EXAMINATION: CT CERVICAL SPINE WITHOUT CONTRAST CLINICAL INFORMATION: Neck pain. Head strike. COMPARISON: None available. TECHNIQUE: Noncontrast computed tomography of the cervical spine was performed. This CT examination was performed using dose optimization techniques as appropriate, variously including the following: *Automated exposure control *Adjustment of mA and/or kV according to patient size (this includes techniques or standardized protocols for targeted exams where dose is matched to indication/reason for exam; i.e. extremities or head) *Use of iterative reconstruction technique DLP: 641 mGy-cm FINDINGS: There is straightening of the cervical lordosis. Cervical spinal alignment is otherwise anatomic in the sagittal projection. The facet joints demonstrate anatomic alignment. The C1-C2 relationship is intact. The dens is intact. Vertebral body heights are maintained. Intervertebral disc space heights are preserved. Prevertebral soft tissue is normal in appearance. No acute cervical spine fracture. The mastoid air cells are well aerated. The lung apices are clear. There is a 6 mm low-attenuation lesion within the right lobe of the thyroid gland. CT/CT cervical spine wo IV con IMPRESSION: No acute cervical spine abnormality. There is a 6 mm low-attenuation lesion within the right lobe of the thyroid gland. Further evaluation with ultrasound can be performed as clinically indicated. Fleischner guidelines were followed.
--- NOTE | 2023-11-29 19:33 | ED_ITS ---
HPI - General Adult General Chief complaint: Head Injury Stated complaint: Head inj Time Seen by Provider: 11/29/23 22:27 Source: patient Mode of arrival: ambulatory History of Present Illness HPI narrative: Patient is a 33 year old female presents emergency department for evaluation after head injury. She reports that she was at the playground with her child prior to arrival when she sustained accidental head strike to the top of her head on the monkey bars. There was no loss of consciousness. She denies any use of anticoagulation or known coagulation disorders. Denies any neck pain or neck stiffness. Reports localized pain to the top of the right side of her head. She did not take any pain medications prior to arrival. Denies dizziness, lightheadedness, vision changes, nausea, vomiting. Related Data Previous Rx's ?Medication ?Instructions ?Recorded aspirin 81 mg tablet,delayed 162 mg (2 x 81 mg) PO DAILY #300 06/23/21 release (Adult Aspirin Regimen) tabs vitamin with calcium 1 tab PO DAILY #300 tabs 06/23/21 no.72-iron 27 mg-folic acid 1 mg tablet ( Vitamins Plus Low Iron) doxylamine succinate 25 mg tablet 12.5 mg (1/2 x 25 mg) PO BEDTIME 07/02/21 (Unisom (doxylamine)) sleep 30 days #15 tabs pyridoxine (vitamin B6) 25 mg 25 mg PO TID 30 days #90 tabs 07/02/21 tablet famotidine 10 mg tablet (Pepcid AC) 10 mg PO BID 30 days #60 tabs 10/30/21 ferrous sulfate 325 mg (65 mg 325 mg PO DAILY 90 days #90 tabs 11/11/21 iron) tablet,delayed release amoxicillin 500 mg-potassium 1 tab PO BID 10 days #20 tabs 02/24/22 clavulanate 125 mg tablet (Augmentin) acetaminophen 500 mg tablet 500 mg PO Q6H PRN fever or pain 12/30/22 #14 tabs cyclobenzaprine 5 mg tablet 5 mg PO TID PRN muscle spasm #7 12/30/22 tabs pantoprazole 40 mg tablet,delayed 40 mg PO DAILY #14 tabs 03/02/23 release (Protonix) penicillin V potassium 500 mg 500 mg PO BID 10 days #20 tabs 03/12/23 tablet prednisone 20 mg tablet 20 mg PO DAILY 7 days #7 tabs 03/12/23 amoxicillin 875 mg-potassium 1 tab PO BID 7 days #14 tabs 04/08/23 clavulanate 125 mg tablet acetaminophen 500 mg tablet 1,000 mg (2 x 500 mg) PO QID PRN 06/26/23 pain #30 tabs cyclobenzaprine 5 mg tablet 5 mg PO TID PRN muscle spasm #14 06/26/23 tabs ibuprofen 600 mg tablet 600 mg PO Q6H PRN pain #20 tabs 06/26/23 fluticasone propionate 50 1 spray intranasal DAILY #16 grams 07/11/23 mcg/actuation nasal spray,suspension (Flonase Allergy Relief) Allergies Allergy/AdvReac Type Severity Reaction Status Date / Time shellfish derived Allergy Mild Hives Verified 11/29/23 19:42 Review of Systems Review of Systems: Yes all other systems are reviewed and are negative PMFSH Past Medical History Attestation statement: The following information was validated with the patient. Source: old records reviewed Medical History Cervical cancer screening Obesity (BMI 30-39.9) Migraine Surgical History H/O emergency section Family History Family History Maternal Grandmother Diabetes mellitus Maternal Aunt Cancer of breast, female Social History Social History Household Members: Children Housing: House Are you a primary rn progressive care unit to a significant other at home: No Do you presently have visiting nurse or other home services: No Alcohol intake: never Patient Tobacco Use Status: Never used Tobacco Agree to transfusion: Yes Advance Directives: No Advance Directives Information Provided: No service: No 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al status: employed 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 No acute distress.?Normal affect. Head: Normocephalic Eyes: Pupils equal, round and reactive to light. EOMI. Conjunctiva and sclera normal? No Gatica sign noted. No raccoon eyes noted ENT: No septal hematoma, nares patent bilaterally. External auditory canal normal tympanic membrane pearly martínez and intact bilaterally. Dentition normal, no fractured teeth. No lesions or lacerations of oropharynx. Uvula midline. Moist mucous membranes. Neck: Normal inspection.? Neck supple.??No palpable tenderness, step-off, deformities. CVS: Heart sounds normal. Normal heart rate and rhythm.? Pulses normal.?? Respiratory: No respiratory distress.? Lung sounds clear to auscultation bilaterally?? Abdomen: Soft and non-tender. Normoactive bowel sounds. ?? Skin: Skin warm and dry.? Normal skin color.? Normal skin turgor.?? Extremities: No lower extremity edema.? Neuro: Moves all extremities spontaneously. Sensation intact bilaterally. CN II- XII intact. No focal neuro deficits. 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 denies LOC. endorses headache/pain to right side of her head, radiating down into the right side of her neck. no OTC pain medications prior to arrival. denies vision changes, N/V. Full HPI, ROS and PE to be performed by the primary ED provider. Medical Decision Making Medical Decision Making MDM Narrative: Patient is a 33 year old female who presents emergency department for evaluation after head injury as per HPI. She is overall well-appearing, no focal neurological deficits upon examination. She is speaking clear full sentences. Has full AROM to the neck. No palpable deformities of the scalp. CT of the head and cervical spine was obtained prior to my assumption of care, no acute intracranial abnormality, no cervical spine fracture subluxation. There was an incidental notation of the thyroid lesion, no signs or symptoms of hypo/hyperthyroidism in history or physical examination. Patient was made aware of this incidental finding and advised outpatient follow-up with her primary care provider. We discussed signs and symptoms that would warrant re-evaluation in the emergency department, expected management of concussion, she verbalizes u nderstanding of this. She is stable for discharge home. Differential Diagnosis Differential Diagnoses: The differential diagnosis associated with the presentation includes (See narrative above) Lab Data MDM Lab Attestation statement: I reviewed the patient's lab results. (HCG negative) Labs: Lab Results 11/29/23 Range/Units 19:42 Beta HCG, Quant < 2 mIU/mL Independent Interpretation I performed an independent interpretation of an: CT Scan (No ICH/SDH) Radiology Impression Discussion of test interpretation with radiology: I have reviewed the radiologist's reading. Radiologist Impression: CT/CT cervical spine wo IV con IMPRESSION: No acute cervical spine abnormality. There is a 6 mm low-attenuation lesion within the right lobe of the thyroid gland. Further evaluation with ultrasound can be performed as clinically indicated. Fleischner guidelines were followed. CT/CT head/brain wo IV con IMPRESSION: No acute intracranial pathology. Independent Historian Clinical information obtained from an independent historian. History obtained from or confirmed by: Spouse (Present who confirms history) External Record Review External record reviewed: Outpatient record Tests considered The following testing was considered but not selected: No indication for emergent thyroid ultrasound Prescription Management I considered prescription management with: Pain Medication (Acetaminophen/ibuprofen) Discharge Plan Discharge Patient Disposition: Home, Self-Care Instructions: Concussion (ED), Head Injury (ED) Additional Instructions: CT of the head does not reveal any abnormality which is very reassuring. You can take ibuprofen 200 mg, 3 tablets (600mg) every 6-8 hours as needed for pain, in addition to Tylenol 500 mg, 2 tablets (1,000mg) every 4-6 hours as needed for pain, but not to exceed 3 doses daily (3,000mg).? Monitor for signs and symptoms of concussion as discussed. Return back to emergency department any new or worsening symptoms or concerns. As discussed there was an incidental finding of a thyroid lesion on your CT scan today. Please contact your primary care provider to arrange for a follow-up visit and further workup for this. There is a 6 mm low-attenuation lesion within the right lobe of the thyroid gland. Further evaluation with ultrasound can be performed as clinically indicated. Prescriptions: No Action ferrous sulfate 325 mg (65 mg iron) tablet,delayed release (DR/EC) 325 mg PO DAILY 90 Days Qty: 90 3RF amoxicillin-pot clavulanate [Augmentin] 500-125 mg tablet 1 tab PO BID 10 Days Qty: 20 0RF pantoprazole [Protonix] 40 mg tablet,delayed release (DR/EC) 40 mg PO DAILY Qty: 14 0RF amoxicillin-pot clavulanate 875-125 mg tablet 1 tab PO BID 7 Days Qty: 14 0RF cyclobenzaprine 5 mg tablet 5 mg PO TID PRN (Reason: muscle spasm) Qty: 7 0RF acetaminophen 500 mg tablet 500 mg PO Q6H PRN (Reason: fever or pain) Qty: 14 0RF prednisone 20 mg tablet 20 mg PO DAILY 7 Days Qty: 7 0RF penicillin V potassium 500 mg tablet 500 mg PO BID 10 Days Qty: 20 0RF acetaminophen 500 mg tablet 1,000 mg PO QID PRN (Reason: pain) Qty: 30 0RF ibuprofen 600 mg tablet 600 mg PO Q6H PRN (Reason: pain) Qty: 20 0RF cyclobenzaprine 5 mg tablet 5 mg PO TID PRN (Reason: muscle spasm) Qty: 14 0RF fluticasone propionate [Flonase Allergy Relief] 50 mcg/actuation spray,suspension 1 spray intranasal DAILY Qty: 16 0RF Rx Instructions: administer into each nostril Vitamin Plus Low Iron 27 mg iron- 1 mg tablet 1 tab PO DAILY Qty: 300 2RF aspirin [Adult Aspirin Regimen] 81 mg tablet,delayed release (DR/EC) 162 mg PO DAILY Qty: 300 2RF Unisom (doxylamine) 25 mg tablet 12.5 mg PO BEDTIME 30 Days Qty: 15 0RF pyridoxine (vitamin B6) 25 mg tablet 25 mg PO TID 30 Days Qty: 90 0RF Boostrix Tdap 2.5-8-5 Lf-mcg-Lf/0.5mL syringe 0.5 ml IM ONCE Qty: 0.5 0RF famotidine [Pepcid AC] 10 mg tablet 10 mg PO BID 30 Days Qty: 60 2RF Referrals: Physician,Unknown J [Physician] - Interventions: ED Discharge Assessment Last Done: 11/29/23 23:54 Print Language: Malagasy
[2023-11-29 19:41] VITALS: BP 129/94; PULSE 98; RESP 18; TEMP 36.8; O2SAT 100; BMI 40.0
[2023-11-29 20:08] LABS: HCG Quantitative < 2 mIU/mL
[2023-11-29 23:04] VITALS: BP 106/60; PULSE 83; RESP 17; TEMP 36.3; O2SAT 99
[2023-11-29 23:54] VITALS: BP 106/60; PULSE 83; RESP 17; TEMP 36.3; O2SAT 99
== END 2023-11-29 23:15 | disposition home or self-care (01) ==
PROVIDERS: Physician Assistant Medical; Emergency Provider Emergency Medicine Emergency Medical Services; PCP Internal Medicine
DX: S09.90XA Unspecified injury of head, initial encounter (principal); W22.09XA Striking against other stationary object, initial encounter; Y93.89 Activity, other specified; Y92.830 Public park as the place of occurrence of the external cause; Y99.9 Unspecified external cause status
CPT/HCPCS: 36415; 70450; 72125; 84702; 99283; 99284

== ENCOUNTER 2024-03-06 20:26 | Emergency (ER) | payer OTHER, SELFPAY ==
[2024-03-06 20:31] VITALS: BP 140/77; PULSE 113; RESP 18; TEMP 37.6; O2SAT 100; BMI 39.3
--- NOTE | 2024-03-06 20:33 | ED_ITS ---
HPI - URI/Sore Throat General Chief Complaint: Upper Respiratory Symptoms Stated Complaint: light headed, sore throat, other symptoms Time Seen by Provider: 03/06/24 21:59 Source: patient, RN notes reviewed and old records reviewed Mode of arrival: ambulatory Limitations: no limitations History of Present Illness ED Provider: Lucio HPI Narrative: 34-year-old female presents for evaluation of sore throat She reports her symptoms started 2 days ago. She also complains of lightheadedness, subjective fevers. Denies any sick contacts. Denies any cough, sick contacts Denies any abdominal pain, nausea vomiting, diarrhea. Denies any recent travel Related Data Previous Rx's ?Medication ?Instructions ?Recorded aspirin 81 mg tablet,delayed 162 mg (2 x 81 mg) PO DAILY #300 06/23/21 release (Adult Aspirin Regimen) tabs vitamin with calcium 1 tab PO DAILY #300 tabs 06/23/21 no.72-iron 27 mg-folic acid 1 mg tablet ( Vitamins Plus Low Iron) doxylamine succinate 25 mg tablet 12.5 mg (1/2 x 25 mg) PO BEDTIME 07/02/21 (Unisom (doxylamine)) sleep 30 days #15 tabs pyridoxine (vitamin B6) 25 mg 25 mg PO TID 30 days #90 tabs 07/02/21 tablet famotidine 10 mg tablet (Pepcid AC) 10 mg PO BID 30 days #60 tabs 10/30/21 ferrous sulfate 325 mg (65 mg 325 mg PO DAILY 90 days #90 tabs 11/11/21 iron) tablet,delayed release amoxicillin 500 mg-potassium 1 tab PO BID 10 days #20 tabs 02/24/22 clavulanate 125 mg tablet (Augmentin) acetaminophen 500 mg tablet 500 mg PO Q6H PRN fever or pain 12/30/22 #14 tabs cyclobenzaprine 5 mg tablet 5 mg PO TID PRN muscle spasm #7 12/30/22 tabs pantoprazole 40 mg tablet,delayed 40 mg PO DAILY #14 tabs 03/02/23 release (Protonix) penicillin V potassium 500 mg 500 mg PO BID 10 days #20 tabs 03/12/23 tablet prednisone 20 mg tablet 20 mg PO DAILY 7 days #7 tabs 03/12/23 amoxicillin 875 mg-potassium 1 tab PO BID 7 days #14 tabs 04/08/23 clavulanate 125 mg tablet acetaminophen 500 mg tablet 1,000 mg (2 x 500 mg) PO QID PRN 06/26/23 pain #30 tabs cyclobenzaprine 5 mg tablet 5 mg PO TID PRN muscle spasm #14 06/26/23 tabs ibuprofen 600 mg tablet 600 mg PO Q6H PRN pain #20 tabs 06/26/23 fluticasone propionate 50 1 spray intranasal DAILY #16 grams 07/11/23 mcg/actuation nasal spray,suspension (Flonase Allergy Relief) amoxicillin 875 mg-potassium 1 tab PO Q12H #14 tabs 03/06/24 clavulanate 125 mg tablet Allergies Allergy/AdvReac Type Severity Reaction Status Date / Time shellfish derived Allergy Mild Hives Verified 03/06/24 20:33 Review of Systems Constitutional: Constitutional: Reports body ache(s), Reports chills, Reports fever(s) and Reports headache(s) ENT: Reports headache(s) and Reports sore throat Cardiovascular: Cardiovascular: Denies chest pain and Denies dyspnea Respiratory: Respiratory: Denies cough and Denies dyspnea Gastrointestinal: Gastrointestinal: Denies abdominal pain, Denies nausea and Denies vomiting Musculoskeletal: Musculoskeletal: Denies back pain Integumentary/Breasts: Skin/Breast: Denies rash Neurologic: Reports headache(s) [facility] Past Medical History Medical History Cervical cancer screening Obesity (BMI 30-39.9) Migraine Surgical History H/O emergency section Family History Family History Maternal Grandmother Diabetes mellitus Maternal Aunt Cancer of breast, female Social History Social History Household Members: Children Housing: House Are you a primary pet care associate to a significant other at home: No Do you presently have visiting nurse or other home services: No Alcohol intake: never Patient Tobacco Use Status: Never used Tobacco Smoked in Last 30 Days: No Use of substances other than those prescribed or required for medical reasons: No Agree to transfusion: Yes Advance Directives: No Advance Directives Information Provided: No Do you have a plan to hurt others: No Plan service: No 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al status: employed 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 , 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al exposures/hazards: No Cognitive needs: No Hearing needs: No Vision needs: No Physical Exam Vital Signs: Vital Signs: Last Vital Signs Temp 100.4 F 03/06/24 21:20 Pulse 90 03/06/24 21:20 Resp 16 03/06/24 21:20 BP 123/53 L 03/06/24 21:20 Pulse Ox 97 03/06/24 21:20 O2 Del Method Room Air 03/06/24 20:31 BMI result Body Mass Index 39.3 Const: General: healthy appearing, comfortable, no acute distress, alert and awake Nutritional Appearance: well nourished Orientation/consciousness: patient oriented x3 HEENT: Head: Yes normocephalic and Yes atraumatic Eyes: Eyelids: Yes eyelids normal Conjunctivae: conjunctivae normal Sclerae: sclerae normal Corneas: corneas normal Pupils: Equal, round and reactive pupils present EOM: EOMs intact bilaterally Neck: Neck: Yes full ROM Resp: Effort & Inspection: normal respiratory effort, able to speak in complete sentences and not labored Skin: General skin exam: elasticity normal Neuro: General: patient oriented x3 Cranial nerves: Yes Equal, round and reactive pupils present and Yes Bilaterally intact EOM present Cognition (Neuro): normal cognition Course Course Course Narrative: This is a Rapid Medical Examination (RME) performed by Godfrey Koch PA-C in [facility]. Full HPI, ROS, assessment and treatment plan per primary provider in the Main ED. 34 yo female presents to the ER for evaluation of 2 days of sore throat, lightheadedness, subjective fevers, runny nose, not feeling well. no known sick contacts. nontoxic appearing, tachycardic in triage. posterior pharynx w/ mild generalized erythema, mild tonsillar swelling without exuidate, uvula midline. l ungs clear. Plan: covid swab, strep swab Medical Decision Making Medical Decision Making MDM Narrative: 4-year-old healthy female presents for evaluation of sore throat, viral symptoms. She tested positive for strep pharyngitis will treat with Augmentin b.i.d. x7 days Differential Diagnosis Differential Diagnoses: The differential diagnosis associated with the presentation includes Pharyngitis Strep throat Upper respiratory infection COVID-19 Lab Data Labs: Lab Results 03/06/24 Range/Units 21:16 COVID-19 ([facility]NEY) Negative (Negative) COVID-19 Clin Com See Note S. pyogenes GrpA HALI Positive A (Negative) Discharge Plan Discharge Clinical Impression: Acute streptococcal pharyngitis Patient Disposition: Home, Self-Care Instructions: Strep Throat (ED) Additional Instructions: You tested positive for strep throat. Take Augmentin twice daily for 7 days You may also use saltwater gargles to help with your symptoms. Getting lots of fluids Use ibuprofen/Tylenol for pain I recommend you change your toothbrush after your last dose of antibiotics Follow-up with your primary doctor return for new or worsening symptoms Prescriptions: New amoxicillin-pot clavulanate 875-125 mg tablet 1 tab PO Q12H Qty: 14 0RF No Action ferrous sulfate 325 mg (65 mg iron) tablet,delayed release (DR/EC) 325 mg PO DAILY 90 Days Qty: 90 3RF amoxicillin-pot clavulanate [Augmentin] 500-125 mg tablet 1 tab PO BID 10 Days Qty: 20 0RF pantoprazole [Protonix] 40 mg tablet,delayed release (DR/EC) 40 mg PO DAILY Qty: 14 0RF amoxicillin-pot clavulanate 875-125 mg tablet 1 tab PO BID 7 Days Qty: 14 0RF cyclobenzaprine 5 mg tablet 5 mg PO TID PRN (Reason: muscle spasm) Qty: 7 0RF acetaminophen 500 mg tablet 500 mg PO Q6H PRN (Reason: fever or pain) Qty: 14 0RF prednisone 20 mg tablet 20 mg PO DAILY 7 Days Qty: 7 0RF penicillin V potassium 500 mg tablet 500 mg PO BID 10 Days Qty: 20 0RF acetaminophen 500 mg tablet 1,000 mg PO QID PRN (Reason: pain) Qty: 30 0RF ibuprofen 600 mg tablet 600 mg PO Q6H PRN (Reason: pain) Qty: 20 0RF cyclobenzaprine 5 mg tablet 5 mg PO TID PRN (Reason: muscle spasm) Qty: 14 0RF fluticasone propionate [Flonase Allergy Relief] 50 mcg/actuation spray,suspension 1 spray intranasal DAILY Qty: 16 0RF Rx Instructions: administer into each nostril Vitamin Plus Low Iron 27 mg iron- 1 mg tablet 1 tab PO DAILY Qty: 300 2RF aspirin [Adult Aspirin Regimen] 81 mg tablet,delayed release (DR/EC) 162 mg PO DAILY Qty: 300 2RF Unisom (doxylamine) 25 mg tablet 12.5 mg PO BEDTIME 30 Days Qty: 15 0RF pyridoxine (vitamin B6) 25 mg tablet 25 mg PO TID 30 Days Qty: 90 0RF Boostrix Tdap 2.5-8-5 Lf-mcg-Lf/0.5mL syringe 0.5 ml IM ONCE Qty: 0.5 0RF famotidine [Pepcid AC] 10 mg tablet 10 mg PO BID 30 Days Qty: 60 2RF Print Language: Yemeni
[2024-03-06 21:20] VITALS: BP 123/53; PULSE 90; RESP 16; TEMP 38; O2SAT 97
[2024-03-06 21:34] LABS: IDNOW Serial# 08D9AD1C; Strep A Nucleic Acid Positive (Negative)
[2024-03-06 21:43] LABS: COVID-19 Test Negative (Negative); IDNOW Serial# 152EDE1D
--- NOTE | 2024-03-06 22:24 | PC.NURSE ---
Evmaya by , + strep throat, cleared for dc home with abx.
[2024-03-06 22:27] VITALS: BP 00/00; PULSE 0; RESP 0; TEMP -17.7; TEMP 0; O2SAT 0
== END 2024-03-06 22:27 | disposition home or self-care (01) ==
PROVIDERS: Physician Assistant; Emergency Provider Emergency Medicine; PCP Internal Medicine
DX: J02.0 Streptococcal pharyngitis (principal); R50.9 Fever, unspecified; Z11.52 Encounter for screening for COVID-19; Z79.899 Other long term (current) drug therapy
CPT/HCPCS: 87635; 87651; 99283; 99284

== ENCOUNTER 2024-06-07 09:18 | Emergency (ER) | payer OTHER, SELFPAY ==
--- NOTE | ~2024-06-07 | US_ITS ---
EXAMINATION: US TRIPLEX LOWER EXTREMITY, LEFT CLINICAL INFORMATION: Posterior knee pain COMPARISON: None available. TECHNIQUE: Color-flow triplex imaging with spectral analysis and compression Doppler were performed on the left lower extremity. FINDINGS: Respiratory variation, normal compression and augmented flow are noted throughout the left lower extremity. The visualized common femoral vein, superficial femoral vein, profunda femoral vein, popliteal vein and midcalf peroneal and posterior tibial venous segments show no evidence of deep venous thrombosis. There is no Kat's cyst. US/US venous duplex LE LT IMPRESSION: No evidence of deep venous thrombosis involving the left lower extremity. Electronically signed by: Da Grissom MD 06/07/2024 01:40 PM EDT
--- NOTE | ~2024-06-07 | XR_ITS ---
EXAMINATION: 1. RADIOGRAPHS LEFT KNEE 2. RADIOGRAPHS LEFT FOOT CLINICAL INFORMATION: Pain COMPARISON: None TECHNIQUE: 4 views of the left knee and 3 views of the left foot were obtained. FINDINGS: Left knee: No fracture or dislocation. No suprapatellar joint effusion. Joint spaces are well-maintained. Mild degenerative changes of the tibiofibular syndesmosis. No localized soft tissue swelling. No radiopaque foreign body. Left foot: Bones of the midfoot are well aligned. No tarsal, metatarsal or phalangeal fracture. Small posterior and plantar calcaneal enthesophytes. No localized soft tissue swelling. No radiopaque foreign body. XR/XR foot LT 2V IMPRESSION: Mild degenerative changes of the left knee and left foot. Electronically signed by: Kenny Holland MD 06/07/2024 10:52 AM EDT
--- NOTE | ~2024-06-07 | XR_ITS ---
EXAMINATION: 1. RADIOGRAPHS LEFT KNEE 2. RADIOGRAPHS LEFT FOOT CLINICAL INFORMATION: Pain COMPARISON: None TECHNIQUE: 4 views of the left knee and 3 views of the left foot were obtained. FINDINGS: Left knee: No fracture or dislocation. No suprapatellar joint effusion. Joint spaces are well-maintained. Mild degenerative changes of the tibiofibular syndesmosis. No localized soft tissue swelling. No radiopaque foreign body. Left foot: Bones of the midfoot are well aligned. No tarsal, metatarsal or phalangeal fracture. Small posterior and plantar calcaneal enthesophytes. No localized soft tissue swelling. No radiopaque foreign body. XR/XR knee LT 3V IMPRESSION: Mild degenerative changes of the left knee and left foot. Electronically signed by: Kenny Holland MD 06/07/2024 10:52 AM EDT
[2024-06-07 09:30] VITALS: BP 100/43; PULSE 90; RESP 16; TEMP 36.6; O2SAT 97; BMI 39.3
--- NOTE | 2024-06-07 10:45 | ED.LOWEXIN ---
HPI - Extremity Injury (Lower) General Chief Complaint: Extremity Injury, Lower Stated Complaint: l foot pain Time Seen by Provider: 06/07/24 10:18 Source: patient Mode of arrival: ambulatory Limitations: no limitations History of Present Illness ED Provider: VIRI SENA PA-C HPI Narrative: 34 year old female with pmhx significant for migraines presents to the ED today for evaluation of left knee and ankle pain x24 hours. Reports pain extending from behind her knee, down her left lower leg and into her left ankle. Denies known injury, trauma or fall however does endorse climbing her stairs frequently at home which may have aggravated her pain. Denies recent plane travel. 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 No hx of OCP use. Related Data Previous Rx's ?Medication ?Instructions ?Recorded aspirin 81 mg tablet,delayed 162 mg (2 x 81 mg) PO DAILY #300 06/23/21 release (Adult Aspirin Regimen) tabs vitamin with calcium 1 tab PO DAILY #300 tabs 06/23/21 no.72-iron 27 mg-folic acid 1 mg tablet ( Vitamins Plus Low Iron) doxylamine succinate 25 mg tablet 12.5 mg (1/2 x 25 mg) PO BEDTIME 07/02/21 (Unisom (doxylamine)) sleep 30 days #15 tabs pyridoxine (vitamin B6) 25 mg 25 mg PO TID 30 days #90 tabs 07/02/21 tablet famotidine 10 mg tablet (Pepcid AC) 10 mg PO BID 30 days #60 tabs 10/30/21 ferrous sulfate 325 mg (65 mg 325 mg PO DAILY 90 days #90 tabs 11/11/21 iron) tablet,delayed release amoxicillin 500 mg-potassium 1 tab PO BID 10 days #20 tabs 02/24/22 clavulanate 125 mg tablet (Augmentin) acetaminophen 500 mg tablet 500 mg PO Q6H PRN fever or pain 12/30/22 #14 tabs cyclobenzaprine 5 mg tablet 5 mg PO TID PRN muscle spasm #7 12/30/22 tabs pantoprazole 40 mg tablet,delayed 40 mg PO DAILY #14 tabs 03/02/23 release (Protonix) penicillin V potassium 500 mg 500 mg PO BID 10 days #20 tabs 03/12/23 tablet prednisone 20 mg tablet 20 mg PO DAILY 7 days #7 tabs 03/12/23 amoxicillin 875 mg-potassium 1 tab PO BID 7 days #14 tabs 04/08/23 clavulanate 125 mg tablet acetaminophen 500 mg tablet 1,000 mg (2 x 500 mg) PO QID PRN 06/26/23 pain #30 tabs cyclobenzaprine 5 mg tablet 5 mg PO TID PRN muscle spasm #14 06/26/23 tabs ibuprofen 600 mg tablet 600 mg PO Q6H PRN pain #20 tabs 06/26/23 fluticasone propionate 50 1 spray intranasal DAILY #16 grams 07/11/23 mcg/actuation nasal spray,suspension (Flonase Allergy Relief) amoxicillin 875 mg-potassium 1 tab PO Q12H #14 tabs 03/06/24 clavulanate 125 mg tablet cyclobenzaprine 5 mg tablet 5 mg PO Q8H PRN muscle pain #7 tabs 06/07/24 Allergies Allergy/AdvReac Type Severity Reaction Status Date / Time shellfish derived Allergy Mild Hives Verified 06/07/24 09:32 Review of Systems Review of Systems: Constitutional: No fever, chills, fatigue, night sweats, weight changes ENT/Mouth: No ear pain, hearing loss, nasal congestion, sinus pain, rhinorrhea, sore throat Eyes: No eye pain, swelling, redness, vision changes, discharge Cardio: No chest pain, palpitations, CORTES, orthopnea, peripheral edema Pulm: No SOB, cough, sputum, wheezing, dyspnea, hemoptysis GI: No nausea, vomiting, hematemesis, abdominal pain, diarrhea, constipation, hematochezia, melena : No irregular bleeding, dysuria, frequency, urgency, hesitancy, hematuria, flank pain, urinary flow changes, urinary incontinence or retention MSK: No back pain, neck pain, joint pain, myalgias, +LLE pain Skin: No lesions, rashes Neuro: No weakness, numbness, paresthesias, LOC, dizziness, headache Psych: No anxiety/panic, depression, SI/HI, AH/VH All other systems reviewed and are negative. [facility] Past Medical History Attestation statement: The following information was validated with the patient. Source: old records reviewed and nursing notes reviewed Medical History Cervical cancer screening Obesity (BMI 30-39.9) Migraine Surgical History H/O emergency section Family History Family History Maternal Grandmother Diabetes mellitus Maternal Aunt Cancer of breast, female Social History Social History Household Members: Children Housing: House Are you a primary nursing care attendant to a significant other at home: No Do you presently have visiting nurse or other home services: No Alcohol intake: never Patient Tobacco Use Status: Never used Tobacco Agree to transfusion: Yes Advance Directives: No Advance Directives Information Provided: No Do you have a plan to hurt others: No Plan service: No 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al status: employed 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 General: Well appearing, in no acute distress. Skin: Warm, dry, intact. No rashes or lesions. Head: Normocephalic, atraumatic. Cardiac: Chest wall symmetric. RRR. Lungs: Normal respiratory effort without accessory muscle use. CTA bilaterally Back: No midline spinous or paraspinal tenderness. No step off deformity. Ext: +no noted swelling/ deformity to left knee/ foot/ ankle. FROM intact to left knee and ankle with minimal pain on flexion of knee. TTP of anterior and posterior knee w/o palpable mass, deformity or crepitus. No calf tenderness. No tenderness overlying Achilles tendon or plantar fascia. 2+ DP/PT and popliteal pulse intact. Ambulating with steady gait. Neuro: AOx3. Normal speech. Strength 5/5 intact throughout. Sensation intact to light touch. NV intact distally. Course Course Course Narrative: 1420 -- X-ray left knee and foot showing mild degenerative changes, no acute fracture. No calcium deposition. No noted joint effusion. Venous duplex of left lower extremity does not reveal Kat's cyst or DVT. Patient treated with Toradol in the ED with improvement in pain. discussed management with RICE therapy and NSAIDs. Patient has remained stable throughout ED visit today. Discussed worrisome signs and symptoms and when to return to the ED. All questions answered at this time. Patient is agreeable with disposition and stable for discharge. Medications Administered Discontinued Medications Generic Name Dose Route Start Last Admin Trade Name Freq PRN Reason Stop Dose Admin Ketorolac Tromethamine 30 mg 06/07/24 11:06 06/07/24 11:14 Ketorolac Tromethamine 30 Mg/Ml Vial IM 06/07/24 11:07 30 mg ONCE ONE Administration Medical Decision Making Medical Decision Making MDM Narrative: 34 year old female with pmhx significant for migraines presents to the ED today for evaluation of left knee and ankle pain x24 hours. Vital signs stable. she is nontoxic appearing and in NAD. on exam, no noted swelling/ deformity to left knee/ foot/ ankle. FROM intact to left knee and ankle with minimal pain on flexion of knee. TTP of anterior and posterior knee w/o palpable mass, deformity or crepitus. No calf tenderness. No tenderness overlying Achilles tendon or plantar fascia. 2+ DP/PT and popliteal pulse intact. Ambulating with steady gait. Differential diagnosis includes MSK sprain/strain, contusion, muscle spasm, arthritis, bursitis. Lower suspicion for fracture, dislocation, DVT, Kat cyst. Unlikely neurovascular compromise, threat to limb, compartment syndrome. Presentation not consistent with gout, pseudogout, septic joint, Lyme arthritis. Plan for x-ray, ultrasound, pain control and re-evaluation. Differential Diagnosis Differential Diagnoses: The differential diagnosis associated with the presentation includes as above. Admission/Observation not indicated. Independent Interpretation I performed an independent interpretation of an: Plain X-Ray and Ultrasound Interpretation: XR left foot without acute fracture, agree with radiologist's interpretation. XR left knee without acute fracture, agree with radiologist's interpretation. Venous duplex LLE without DVT, agree with radiologist's interpretation. Radiology Impression Discussion of test interpretation with radiology: I have reviewed the radiologist's reading. Radiologist Impression: EXAMINATION: 1. RADIOGRAPHS LEFT KNEE 2. RADIOGRAPHS LEFT FOOT CLINICAL INFORMATION: Pain COMPARISON: None TECHNIQUE: 4 views of the left knee and 3 views of the left foot were obtained. FINDINGS: Left knee: No fracture or dislocation. No suprapatellar joint effusion. Joint spaces are well-maintained. Mild degenerative changes of the tibiofibular syndesmosis. No localized soft tissue swelling. No radiopaque foreign body. Left foot: Bones of the midfoot are well aligned. No tarsal, metatarsal or phalangeal fracture. Small posterior and plantar calcaneal enthesophytes. No localized soft tissue swelling. No radiopaque foreign body. XR/XR knee LT 3V IMPRESSION: Mild degenerative changes of the left knee and left foot. Electronically signed by: Kenny Holland MD 06/07/2024 10:52 AM EDT EXAMINATION: US TRIPLEX LOWER EXTREMITY, LEFT CLINICAL INFORMATION: Posterior knee pain COMPARISON: None available. TECHNIQUE: Color-flow triplex imaging with spectral analysis and compression Doppler were performed on the left lower extremity. FINDINGS: Respiratory variation, normal compression and augmented flow are noted throughout the left lower extremity. The visualized common femoral vein, superficial femoral vein, profunda femoral vein, popliteal vein and midcalf peroneal and posterior tibial venous segments show no evidence of deep venous thrombosis. There is no Kat's cyst. US/US venous duplex LE LT IMPRESSION: No evidence of deep venous thrombosis involving the left lower extremity. Electronically signed by: Da Grissom MD 06/07/2024 01:40 PM EDT External Record Review External record reviewed: Inpatient record Prescription Management I considered prescription management with: Pain Medication Social Determinants Patient?s care significantly limited by Social Determinants of Health including: Other Social Determinant of Health Critical Care Time Critical Care Time Critical Care Time: No Discharge Plan Discharge Clinical Impression: Pain of muscle of lower leg Patient Disposition: Home, Self-Care Instructions: Musculoskeletal Pain (ED) Additional Instructions: The x-ray of your left knee and ankle are normal. The ultrasound of your left leg does not demonstrate cyst or clot. Your pain is likely muscular. I recommend you take 600mg ibuprofen every 6 hours or Tylenol 650mg every 6 hours as needed for pain. If needed, you can alternate these medications so that you take one medication every 3 hours. For instance, at noon take ibuprofen, then at 3pm take Tylenol, then at 6pm take ibuprofen. I have sent Flexeril, a muscle relaxer, to your pharmacy for you to take as needed. Do not drink, drive or operate heavy machinery while taking this as this can cause you to be drowsy. Please schedule an appointment for follow up with your primary care provider this week. Return to the Emergency Department if you experience worsening pain, numbness, tingling, change of color in your toes, or any other concerning symptoms. Prescriptions: New cyclobenzaprine 5 mg tablet 5 mg PO Q8H PRN (Reason: muscle pain) Qty: 7 0RF No Action ferrous sulfate 325 mg (65 mg iron) tablet,delayed release (DR/EC) 325 mg PO DAILY 90 Days Qty: 90 3RF amoxicillin-pot clavulanate [Augmentin] 500-125 mg tablet 1 tab PO BID 10 Days Qty: 20 0RF pantoprazole [Protonix] 40 mg tablet,delayed release (DR/EC) 40 mg PO DAILY Qty: 14 0RF amoxicillin-pot clavulanate 875-125 mg tablet 1 tab PO BID 7 Days Qty: 14 0RF cyclobenzaprine 5 mg tablet 5 mg PO TID PRN (Reason: muscle spasm) Qty: 7 0RF acetaminophen 500 mg tablet 500 mg PO Q6H PRN (Reason: fever or pain) Qty: 14 0RF prednisone 20 mg tablet 20 mg PO DAILY 7 Days Qty: 7 0RF penicillin V potassium 500 mg tablet 500 mg PO BID 10 Days Qty: 20 0RF acetaminophen 500 mg tablet 1,000 mg PO QID PRN (Reason: pain) Qty: 30 0RF ibuprofen 600 mg tablet 600 mg PO Q6H PRN (Reason: pain) Qty: 20 0RF cyclobenzaprine 5 mg tablet 5 mg PO TID PRN (Reason: muscle spasm) Qty: 14 0RF fluticasone propionate [Flonase Allergy Relief] 50 mcg/actuation spray,suspension 1 spray intranasal DAILY Qty: 16 0RF Rx Instructions: administer into each nostril amoxicillin-pot clavulanate 875-125 mg tablet 1 tab PO Q12H Qty: 14 0RF Vitamin Plus Low Iron 27 mg iron- 1 mg tablet 1 tab PO DAILY Qty: 300 2RF aspirin [Adult Aspirin Regimen] 81 mg tablet,delayed release (DR/EC) 162 mg PO DAILY Qty: 300 2RF Unisom (doxylamine) 25 mg tablet 12.5 mg PO BEDTIME 30 Days Qty: 15 0RF pyridoxine (vitamin B6) 25 mg tablet 25 mg PO TID 30 Days Qty: 90 0RF Boostrix Tdap 2.5-8-5 Lf-mcg-Lf/0.5mL syringe 0.5 ml IM ONCE Qty: 0.5 0RF famotidine [Pepcid AC] 10 mg tablet 10 mg PO BID 30 Days Qty: 60 2RF Stand Alone Forms: Work/School Release Interventions: ED Discharge Assessment Last Done: 06/07/24 14:38 Discharge Date/Time: 06/07/24 14:39 Print Language: Czech
[2024-06-07 11:11] VITALS: BP 100/56; PULSE 81; RESP 18; TEMP 36.1; O2SAT 100
[2024-06-07] MEDS: Ketorolac Tromethamine 30 MG/ML VIAL IM (11:14)
[2024-06-07 14:38] VITALS: BP 97/39; PULSE 77; RESP 14; TEMP 36.3; O2SAT 99
== END 2024-06-07 14:39 | disposition home or self-care (01) ==
PROVIDERS: Emergency Provider Emergency Medicine
DX: M79.605 Pain in left leg (principal); M79.672 Pain in left foot
CPT/HCPCS: 73562; 73620; 93971; 96372; 99284; J1885

== ENCOUNTER 2024-06-11 17:29 | Emergency (ER) | payer OTHER, SELFPAY ==
[2024-06-11 17:42] VITALS: BP 107/55; PULSE 98; RESP 18; TEMP 37; O2SAT 99; BMI 40.4
--- NOTE | 2024-06-11 17:52 | ED.GENADULT ---
HPI - General Adult General Chief complaint: Upper Respiratory Symptoms Stated complaint: throat and ear pain Time Seen by Provider: 06/11/24 23:33 Source: patient Mode of arrival: ambulatory Limitations: no limitations History of Present Illness HPI narrative: Patient is a 34-year-old female who presents emergency department for evaluation. Reports 3 days with sore throat, bilateral ear pain right worse than left with a clogged sensation, nasal congestion. Denies fevers or chills. No inability to swallow or difficulty swallowing. No cough chest pain or shortness of breath. Daughter has been ill with a runny nose. Related Data Previous Rx's ?Medication ?Instructions ?Recorded aspirin 81 mg tablet,delayed 162 mg (2 x 81 mg) PO DAILY #300 06/23/21 release (Adult Aspirin Regimen) tabs vitamin with calcium 1 tab PO DAILY #300 tabs 06/23/21 no.72-iron 27 mg-folic acid 1 mg tablet ( Vitamins Plus Low Iron) doxylamine succinate 25 mg tablet 12.5 mg (1/2 x 25 mg) PO BEDTIME 07/02/21 (Unisom (doxylamine)) sleep 30 days #15 tabs pyridoxine (vitamin B6) 25 mg 25 mg PO TID 30 days #90 tabs 07/02/21 tablet famotidine 10 mg tablet (Pepcid AC) 10 mg PO BID 30 days #60 tabs 10/30/21 ferrous sulfate 325 mg (65 mg 325 mg PO DAILY 90 days #90 tabs 11/11/21 iron) tablet,delayed release amoxicillin 500 mg-potassium 1 tab PO BID 10 days #20 tabs 02/24/22 clavulanate 125 mg tablet (Augmentin) acetaminophen 500 mg tablet 500 mg PO Q6H PRN fever or pain 12/30/22 #14 tabs cyclobenzaprine 5 mg tablet 5 mg PO TID PRN muscle spasm #7 12/30/22 tabs pantoprazole 40 mg tablet,delayed 40 mg PO DAILY #14 tabs 03/02/23 release (Protonix) penicillin V potassium 500 mg 500 mg PO BID 10 days #20 tabs 03/12/23 tablet prednisone 20 mg tablet 20 mg PO DAILY 7 days #7 tabs 03/12/23 amoxicillin 875 mg-potassium 1 tab PO BID 7 days #14 tabs 04/08/23 clavulanate 125 mg tablet acetaminophen 500 mg tablet 1,000 mg (2 x 500 mg) PO QID PRN 06/26/23 pain #30 tabs cyclobenzaprine 5 mg tablet 5 mg PO TID PRN muscle spasm #14 06/26/23 tabs ibuprofen 600 mg tablet 600 mg PO Q6H PRN pain #20 tabs 06/26/23 fluticasone propionate 50 1 spray intranasal DAILY #16 grams 07/11/23 mcg/actuation nasal spray,suspension (Flonase Allergy Relief) amoxicillin 875 mg-potassium 1 tab PO Q12H #14 tabs 03/06/24 clavulanate 125 mg tablet cyclobenzaprine 5 mg tablet 5 mg PO Q8H PRN muscle pain #7 tabs 06/07/24 amoxicillin 875 mg-potassium 1 tab PO BID #19 tabs 06/12/24 clavulanate 125 mg tablet Allergies Allergy/AdvReac Type Severity Reaction Status Date / Time shellfish derived Allergy Mild Hives Verified 06/11/24 17:45 Review of Systems Review of Systems: Yes all other systems are reviewed and are negative PMFSH Past Medical History Attestation statement: The following information was validated with the patient. Source: old records reviewed Medical History Cervical cancer screening Obesity (BMI 30-39.9) Migraine Surgical History H/O emergency section Family History Family History Maternal Grandmother Diabetes mellitus Maternal Aunt Cancer of breast, female Social History Social History Household Members: Children Housing: House Are you a primary career placement specialist to a significant other at home: No Do you presently have visiting nurse or other home services: No Alcohol intake: never Patient Tobacco Use Status: Never used Tobacco Agree to transfusion: Yes Advance Directives: No Advance Directives Information Provided: No service: No 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al status: employed 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 No acute distress.?Normal affect. Eyes: Pupils equal, round and reactive to light.? ENT: Pharynx erythematous with 1+ tonsillar hypertrophy bilaterally, no exudates. Uvula midline. No trismus. No drooling. Right TM with effusion no erythema or bulging. Left TM is erythematous and bulging, no pain upon ambulation of the war call or tragus, external canal clear Neck: Normal inspection.? Neck supple.??No cervical adenopathy CVS: Heart sounds normal. Normal heart rate and rhythm.? Pulses normal.?? Respiratory: No respiratory distress.? Lung sounds clear to auscultation bilaterally?? Abdomen: Soft and non-tender. Normoactive bowel sounds. Skin: Skin warm and dry.? Normal skin color.? Extremities: No lower extremity edema.? Neuro: Moves all extremities spontaneously. Sensation intact bilaterally. No focal neuro deficits. Ambulates with normal steady gait. Course Course Course Narrative: RME performed by Lexie Vasquez PA-C. Patient is a 34 year old assigned female at presenting to the emergency department with a sore throat and bilateral ear pain. Detailed physical exam and review of systems are deferred to the behavior clinician. Swabs ordered. Patient placed back in the waiting room pending room availability and results. Medications Administered Discontinued Medications Generic Name Dose Route Start Last Admin Trade Name Freq PRN Reason Stop Dose Admin Amoxicillin/Clavulanate Potassium 875 mg 06/11/24 23:59 06/12/24 00:10 Amoxicillin/Potassium Clav 875 Mg Tablet PO 06/12/24 00:00 875 mg ONCE ONE Administration Medical Decision Making Medical Decision Making MDM Narrative: Patient is a is a 34-year-old female who presents emergency department for evaluation of sore throat and ear pain as per HPI. COVID-19 /influenza/RSV/group a strep negative. On examination has acute otitis media on the left without rupture of the TM, effusion on the right without evidence of acute infection. Has mild pharyngitis, examination not consistent with RPA/DIRECTOR FINANCIAL ANALYSIS. Initial nursing triage reports significant swelling of the throat right worse than left I do not appreciate this at the time elevation. At this time history and physical exam not consistent with ACS/PE/pneumonia. Well-appearing, nontoxic, afebrile, no tachycardia or tachypnea/hypoxia. Speaking clear full sentences, ambulatory with steady gait. Received initial dose of Augmentin in the emergency department some remainder prescription to the pharmacy. Discussed conservative treatment including rest, hydration, Tylenol/ibuprofen as needed for fever and body aches, saline nasal spray, humidifier, [id number] cold medication. Advised to follow-up with primary care provider as needed, discussed reasons to return back to the emergency department. All questions were answered. Patient discharged home in stable condition. Differential Diagnosis Differential Diagnoses: The differential diagnosis associated with the presentation includes ( See narrative above) Admission/Observation Consideration of admission/observation: Escalation of care including admission/observation considered ( see narrative above) Lab Data MDM Lab Attestation statement: I reviewed the patient's lab results. ( see narrative above) Labs: Lab Results 06/11/24 Range/Units 17:54 Influenza Type A (PCR) NEGATIVE (Negative) Influenza Type B (PCR) NEGATIVE (Negative) RSV RNA Qual (PCR) NEGATIVE (Negative) SARS-CoV-2 RNA (RT-PCR) NEGATIVE (Negative) S. pyogenes GrpA HALI Negative (Negative) Independent Historian Clinical information obtained from an independent historian. History obtained from or confirmed by: Spouse External Record Review External record reviewed: Outpatient record Prescription Management I considered prescription management with: Pain Medication ( acetaminophen/ibuprofen) Discharge Plan Discharge Clinical Impression: Acute otitis media Qualifiers: Otitis media type: suppurative Laterality: right Recurrence: non-recurrent Spontaneous tympanic membrane rupture: without spontaneous rupture Qualified Code(s): H66.001 - Acute suppurative otitis media without spontaneous rupture of ear drum, right ear Patient Disposition: Home, Self-Care Instructions: Ear Infection (ED) Additional Instructions: Complete the entire course of antibiotics as prescribed. Do not skipped any doses or stopped taking early even if you begin to feel better. Do not insert anything into the ear canal as this can increase the risk of rupture to the ear drum. Follow-up with your primary care doctor. You can take ibuprofen 200 mg, 3 tablets (600mg) every 6-8 hours as needed for pain, in addition to Tylenol 500 mg, 2 tablets (1,000mg) every 4-6 hours as needed for pain, but not to exceed 3 doses daily (3,000mg).? Prescriptions: New amoxicillin-pot clavulanate 875-125 mg tablet 1 tab PO BID Qty: 19 0RF No Action ferrous sulfate 325 mg (65 mg iron) tablet,delayed release (DR/EC) 325 mg PO DAILY 90 Days Qty: 90 3RF amoxicillin-pot clavulanate [Augmentin] 500-125 mg tablet 1 tab PO BID 10 Days Qty: 20 0RF pantoprazole [Protonix] 40 mg tablet,delayed release (DR/EC) 40 mg PO DAILY Qty: 14 0RF amoxicillin-pot clavulanate 875-125 mg tablet 1 tab PO BID 7 Days Qty: 14 0RF cyclobenzaprine 5 mg tablet 5 mg PO Q8H PRN (Reason: muscle pain) Qty: 7 0RF cyclobenzaprine 5 mg tablet 5 mg PO TID PRN (Reason: muscle spasm) Qty: 7 0RF acetaminophen 500 mg tablet 500 mg PO Q6H PRN (Reason: fever or pain) Qty: 14 0RF prednisone 20 mg tablet 20 mg PO DAILY 7 Days Qty: 7 0RF penicillin V potassium 500 mg tablet 500 mg PO BID 10 Days Qty: 20 0RF acetaminophen 500 mg tablet 1,000 mg PO QID PRN (Reason: pain) Qty: 30 0RF ibuprofen 600 mg tablet 600 mg PO Q6H PRN (Reason: pain) Qty: 20 0RF cyclobenzaprine 5 mg tablet 5 mg PO TID PRN (Reason: muscle spasm) Qty: 14 0RF fluticasone propionate [Flonase Allergy Relief] 50 mcg/actuation spray,suspension 1 spray intranasal DAILY Qty: 16 0RF Rx Instructions: administer into each nostril amoxicillin-pot clavulanate 875-125 mg tablet 1 tab PO Q12H Qty: 14 0RF Vitamin Plus Low Iron 27 mg iron- 1 mg tablet 1 tab PO DAILY Qty: 300 2RF aspirin [Adult Aspirin Regimen] 81 mg tablet,delayed release (DR/EC) 162 mg PO DAILY Qty: 300 2RF Unisom (doxylamine) 25 mg tablet 12.5 mg PO BEDTIME 30 Days Qty: 15 0RF pyridoxine (vitamin B6) 25 mg tablet 25 mg PO TID 30 Days Qty: 90 0RF Boostrix Tdap 2.5-8-5 Lf-mcg-Lf/0.5mL syringe 0.5 ml IM ONCE Qty: 0.5 0RF famotidine [Pepcid AC] 10 mg tablet 10 mg PO BID 30 Days Qty: 60 2RF Referrals: Carmita Cha MD [Primary Care Provider] - Interventions: ED Discharge Assessment Last Done: 06/12/24 00:07 Discharge Date/Time: 06/12/24 00:12 Print Language: Malaysian
[2024-06-11 18:25] LABS: IDNOW Serial# 08D9AD1C; Strep A Nucleic Acid Negative (Negative)
[2024-06-11 18:38] LABS: Influenza A PCR NEGATIVE (Negative); Influenza B PCR NEGATIVE (Negative); Resp Syncy Virus RNA Qual PCR NEGATIVE (Negative); SARS COV2 PCR INHOUSE NEGATIVE (Negative)
[2024-06-12 00:06] VITALS: BP 102/62; PULSE 83; RESP 16; TEMP 36.7; O2SAT 96
[2024-06-12 00:07] VITALS: BP 102/62; PULSE 83; RESP 16; TEMP 36.7; O2SAT 96
[2024-06-12] MEDS: Amoxicillin/Potassium Clav 875 MG TABLET PO (00:10)
== END 2024-06-12 00:12 | disposition home or self-care (01) ==
PROVIDERS: Emergency Provider Internal Medicine; PCP Internal Medicine
DX: H66.001 Acute suppurative otitis media without spontaneous rupture of ear drum, right ear (principal); J02.9 Acute pharyngitis, unspecified; H92.03 Otalgia, bilateral; Z03.818 Encounter for observation for suspected exposure to other biological agents ruled out
CPT/HCPCS: 0241U; 87651; 99282; 99283

== ENCOUNTER 2024-10-31 08:47 | Emergency (ER) | payer OTHER, SELFPAY ==
[2024-10-31 09:13] VITALS: BP 129/66; PULSE 99; RESP 16; TEMP 35.9; O2SAT 97; BMI 41.4
--- NOTE | 2024-10-31 09:32 | ED_ITS ---
HPI - General Adult General Chief complaint: Upper Respiratory Symptoms Stated complaint: Sore Throat L Ear Pain Time Seen by Provider: 10/31/24 09:31 Source: patient Mode of arrival: ambulatory Limitations: no limitations History of Present Illness ED Provider: Lexie Vasquez PA-C HPI narrative: Patient is a 34 year old assigned female at with a history of migraines presenting to the emergency department today with a sore throat and left ear pain. Patient states that over the last 2 days she has had a sore throat and left ear pain. Patient denies any dizziness, lightheadedness, abdominal pain, nausea, vomiting, fever, chills, blurry vision, double vision, loss of vision, chest pain, difficulty breathing, shortness of breath, back pain, night sweats, pain with urination, increased urinary frequency, increased urinary urgency, blood in her urine or stool, syncope or a near syncopal episode, recent trauma or falls, bowel incontinence, bladder incontinence, or any other complaints at this time. Onset (ago): day(s) (2) Location: left (ear pain) Relieving factors: none Exacerbating factors: none Associated symptoms: denies other symptoms Treatments prior to arrival: none Related Data Previous Rx's ?Medication ?Instructions ?Recorded aspirin 81 mg tablet,delayed 162 mg (2 x 81 mg) PO DAILY #300 06/23/21 release (Adult Aspirin Regimen) tabs vitamin with calcium 1 tab PO DAILY #300 tabs 06/23/21 no.72-iron 27 mg-folic acid 1 mg tablet ( Vitamins Plus Low Iron) doxylamine succinate 25 mg tablet 12.5 mg (1/2 x 25 mg) PO BEDTIME 07/02/21 (Unisom (doxylamine)) sleep 30 days #15 tabs pyridoxine (vitamin B6) 25 mg 25 mg PO TID 30 days #90 tabs 07/02/21 tablet famotidine 10 mg tablet (Pepcid AC) 10 mg PO BID 30 days #60 tabs 10/30/21 ferrous sulfate 325 mg (65 mg 325 mg PO DAILY 90 days #90 tabs 11/11/21 iron) tablet,delayed release amoxicillin 500 mg-potassium 1 tab PO BID 10 days #20 tabs 02/24/22 clavulanate 125 mg tablet (Augmentin) acetaminophen 500 mg tablet 500 mg PO Q6H PRN fever or pain 05/11/23 #14 tabs cyclobenzaprine 5 mg tablet 5 mg PO TID PRN muscle spasm #7 12/30/22 tabs pantoprazole 40 mg tablet,delayed 40 mg PO DAILY #14 tabs 03/02/23 release (Protonix) penicillin V potassium 500 mg 500 mg PO BID 10 days #20 tabs 03/12/23 tablet prednisone 20 mg tablet 20 mg PO DAILY 7 days #7 tabs 03/12/23 amoxicillin 875 mg-potassium 1 tab PO BID 7 days #14 tabs 04/08/23 clavulanate 125 mg tablet acetaminophen 500 mg tablet 1,000 mg (2 x 500 mg) PO QID PRN 06/26/23 pain #30 tabs cyclobenzaprine 5 mg tablet 5 mg PO TID PRN muscle spasm #14 06/26/23 tabs ibuprofen 600 mg tablet 600 mg PO Q6H PRN pain #20 tabs 06/26/23 fluticasone propionate 50 1 spray intranasal DAILY #16 grams 07/11/23 mcg/actuation nasal spray,suspension (Flonase Allergy Relief) amoxicillin 875 mg-potassium 1 tab PO Q12H #14 tabs 03/06/24 clavulanate 125 mg tablet cyclobenzaprine 5 mg tablet 5 mg PO Q8H PRN muscle pain #7 tabs 06/07/24 amoxicillin 875 mg-potassium 1 tab PO BID #19 tabs 06/12/24 clavulanate 125 mg tablet penicillin V potassium 500 mg 500 mg PO BID 10 days #20 tabs 10/31/24 tablet Allergies Allergy/AdvReac Type Severity Reaction Status Date / Time shellfish derived Allergy Mild Hives Verified 10/31/24 09:17 Review of Systems Constitutional: Constitutional: Reports no additional constitutional c omplaints, Denies chills, Denies fever(s) and Denies night sweats Eyes: Eyes: Reports no additional eye complaints, Denies blurry vision, Denies change in vision, Denies diplopia, Denies eye discharge, Denies loss of vision and Denies eye pain ENT: Denies dizziness and Reports sore throat Comments: left ear pain Cardiovascular: Cardiovascular: Reports no additional cardiovascular complaints, Denies chest pain, Denies lightheadedness, Denies Loss of Consciousness and Denies dyspnea Respiratory: Respiratory: Reports no additional respiratory complaints and Denies dyspnea Gastrointestinal: Gastrointestinal: Reports no additional gastrointestinal complaints, Denies abdominal pain, Denies melena, Denies hematochezia, Denies change in bowel habits and Denies change in stool character Genitourinary: Genitourinary: Denies hematuria, Denies urinary frequency, Denies dysuria, Denies urinary incontinence, Denies urinary hesitancy and Denies urinary urgency Musculoskeletal: Musculoskeletal: Reports no additional musculoskeletal complaints, Denies numbness and Denies tingling Neurologic: Denies dizziness, Denies loss of vision, Denies numbness and Denies tingling Psychiatric: Psychiatric: Reports no additional psychiatric complaints Endocrine: Endocrine: Reports no additional endocrine complaints Hematologic/Lymphatic: Hematologic/Lymphatic: Reports no additional hematologic/lymphatic complaints Allergic/Immunologic: Allergic/Immunologic: Reports no additional allergic/immunologic complaints PMF Past Medical History Attestation statement: The following information was validated with the patient. Source: old records reviewed and nursing notes reviewed Medical History Cervical cancer screening Obesity (BMI 30-39.9) Migraine Surgical History H/O emergency section Family History Family History Maternal Grandmother Diabetes mellitus Maternal Aunt Cancer of breast, female Social History Social History Household Members: Children Housing: House Are you a primary student career development specialist to a significant other at home: No Do you presently have visiting nurse or other home services: No Alcohol intake: never Patient Tobacco Use Status: Never used Tobacco Agree to transfusion: Yes Advance Directives: No Advance Directives Information Provided: Yes service: No 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al status: employed 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: 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 , 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al exposures/hazards: No Cognitive needs: No Hearing needs: No Vision needs: No Physical Exam ED Vital Signs: Vital Signs - 24 hr 10/31/24 09:13 10/31/24 10:30 Temperature 96.7 F L 96.7 F L Pulse Rate 99 99 Respiratory Rate 16 16 Blood Pressure 129/66 129/66 Pulse Oximetry 97 97 Oxygen Delivery Method Room Air Room Air BMI result Body Mass Index 41.4 Const General: cooperative, no acute distress, alert and awake Nutritional Appearance: well nourished Orientation/consciousness: patient oriented x3 Limitations: no limitations HENMT Head: Yes normal to inspection and Yes atraumatic Ears: hearing grossly normal bilaterally and external ears normal General nose exam: Normal external nose present, no nasal discharge noted and no epistaxis Face and sinus: Yes normal facial exam, No abrasion and No laceration Mouth: Normal oral and palatal mucosa present, no drooling and no muffled voice Eyes General: appearance normal, both eyes and all related structures Periorbital: periorbital findings normal Eyelids: Yes eyelids normal Conjunctivae: conjunctivae normal Pupils: Equal, round and reactive pupils present EOM: EOMs intact bilaterally Neck Neck: Yes normal visual inspection, Yes full ROM and Yes no lymphadenopathy Chest Chest palpation & inspection: normal inspection of the chest Resp Effort & Inspection: normal respiratory effort and able to speak in complete sentences GI Inspection: Yes normal to inspection Neuro General: patient oriented x3, moves all extremities and CN's II-XI intact bilaterally Cranial nerves: Yes Equal, round and reactive pupils present Cognition (Neuro): normal cognition Extrem General: Yes normal to inspection, Yes full ROM and Yes capillary refill normal Psych Appearance: grossly normal Mental Status: mental status grossly normal Affect: normal affect Attitude: cooperative Thought process: Normal thought process present Thought content: Normal thought content present Insight: Good insight present (Psych) Medical Decision Making Medical Decision Making MDM Narrative: Patient is a 34 year old assigned female at with a history of migraines presenting to the emergency department today with a sore throat and left ear pain. Patient's physical exam was unremarkable. Patient's strep test was positive. I explained my physical exam findings as well as all test results to the patient. I answered all questions asked by the patient. I stressed the importance of the patient taking her medication as directed (either prescribed or as the over the counter packaging recommends). I stressed the importance of the patient following up with her primary care provider. I stressed the importance of the patient returning to the emergency department immediately if her symptoms were to worsen or if she were to develop any dizziness, shortness of breath, difficulty breathing, chest pain, blurry vision, loss of vision, nausea, vomiting, abdominal pain, fever, chills, back pain, or any other complaints. Patient verbalized agreement and understanding with this treatment plan and discharge. Differential Diagnosis Differential Diagnoses: The differential diagnosis associated with the presentation includes Otitis media Otitis externa Strep pharyngitis Viral illness Admission/Observation Consideration of admission/observation: Escalation of care including admissi on/observation considered Patient would have been admitted to the hospital had her work up had any findings where hospital admission was appropriate and her clinical presentation warranted hospital admission. Lab Data [facility] Lab Attestation statement: I reviewed the patient's lab results. My interpretation of these results are in the [facility] Rationale portion of this note. Labs: Lab Results 10/31/24 Range/Units 09:30 Influenza Type A (PCR) NEGATIVE (Negative) Influenza Type B (PCR) NEGATIVE (Negative) RSV RNA Qual (PCR) NEGATIVE (Negative) SARS-CoV-2 RNA (RT-PCR) NEGATIVE (Negative) S. pyogenes GrpA HALI Positive A (Negative) Prescription Management I considered prescription management with: Antibiotic (patient prescribed an antibiotic for strep pharyngitis) Discharge Plan Discharge Clinical Impression: Strep throat Patient Disposition: Home, Self-Care Instructions: Strep Throat (DC) Additional Instructions: Take your antibiotic as prescribed. THROW AWAY YOUR TOOTHBRUSH AFTER 24 HOURS ON ANTIBIOTICS. Follow up with your primary care provider. Return to the emergency department immediately if your symptoms worsen or if you develop any numbness, tingling, dizziness, shortness of breath, difficulty breathing, chest pain, blurry vision, loss of vision, nausea, vomiting, abdominal pain, fever, chills, back pain, or any other complaints. Please see the information below about our Patient Portal. If you are not yet enrolled in the [facility] Patient Portal, you will receive an enrollment email invitation following your visit to any [facility] setting. You may also self-enroll in the Patient Portal by visiting our website: [email or web address] The following information is required to access the Patient Portal: - Your [facility] [place] Number - Your personal home email address (must match what is in your electronic medical record, Registration staff can assist with this) - Name - Date of Capabilities of the Patient Portal: - Message some providers - View upcoming appointments - Access your health summary, medical history, and visit history - View current conditions and allergies - View procedure and lab results - View your medications, including guidelines, side effects, and precautions - Complete pre-appointment questionnaires requested by your provider - Ready summary reports of your office visits and procedures To access the Patient Portal Mobile [employer], follow these directions: - Search [employer] in the [employer] Store or Google Play Store - Download the [employer] - Search for [facility] - Enter your login/password Prescriptions: New penicillin V potassium 500 mg tablet 500 mg PO BID 10 Days Qty: 20 0RF No Action ferrous sulfate 325 mg (65 mg iron) tablet,delayed release (DR/EC) 325 mg PO DAILY 90 Days Qty: 90 3RF amoxicillin-pot clavulanate [Augmentin] 500-125 mg tablet 1 tab PO BID 10 Days Qty: 20 0RF pantoprazole [Protonix] 40 mg tablet,delayed release (DR/EC) 40 mg PO DAILY Qty: 14 0RF amoxicillin-pot clavulanate 875-125 mg tablet 1 tab PO BID 7 Days Qty: 14 0RF cyclobenzaprine 5 mg tablet 5 mg PO Q8H PRN (Reason: muscle pain) Qty: 7 0RF amoxicillin-pot clavulanate 875-125 mg tablet 1 tab PO BID Qty: 19 0RF cyclobenzaprine 5 mg tablet 5 mg PO TID PRN (Reason: muscle spasm) Qty: 7 0RF acetaminophen 500 mg tablet 500 mg PO Q6H PRN (Reason: fever or pain) Qty: 14 0RF prednisone 20 mg tablet 20 mg PO DAILY 7 Days Qty: 7 0RF penicillin V potassium 500 mg tablet 500 mg PO BID 10 Days Qty: 20 0RF acetaminophen 500 mg tablet 1,000 mg PO QID PRN (Reason: pain) Qty: 30 0RF ibuprofen 600 mg tablet 600 mg PO Q6H PRN (Reason: pain) Qty: 20 0RF cyclobenzaprine 5 mg tablet 5 mg PO TID PRN (Reason: muscle spasm) Qty: 14 0RF fluticasone propionate [Flonase Allergy Relief] 50 mcg/actuation spray,suspension 1 spray intranasal DAILY Qty: 16 0RF Rx Instructions: administer into each nostril amoxicillin-pot clavulanate 875-125 mg tablet 1 tab PO Q12H Qty: 14 0RF Vitamin Plus Low Iron 27 mg iron- 1 mg tablet 1 tab PO DAILY Qty: 300 2RF aspirin [Adult Aspirin Regimen] 81 mg tablet,delayed release (DR/EC) 162 mg PO DAILY Qty: 300 2RF Unisom (doxylamine) 25 mg tablet 12.5 mg PO BEDTIME 30 Days Qty: 15 0RF pyridoxine (vitamin B6) 25 mg tablet 25 mg PO TID 30 Days Qty: 90 0RF Boostrix Tdap 2.5-8-5 Lf-mcg-Lf/0.5mL syringe 0.5 ml IM ONCE Qty: 0.5 0RF famotidine [Pepcid AC] 10 mg tablet 10 mg PO BID 30 Days Qty: 60 2RF Referrals: Carmita Cha MD [Primary Care Provider] - Stand Alone Forms: Work/School Release Interventions: ED Discharge Assessment Last Done: 10/31/24 10:30 Discharge Date/Time: 10/31/24 10:38 Print Language: Tajik
[2024-10-31 09:49] LABS: IDNOW Serial# 58CA691E; Strep A Nucleic Acid Positive (Negative)
--- OUTSIDE RECORDS SUMMARY | 2024-10-31 10:17 | XMS_ITS | Clinical Summary ---
Author Organization [facility] Address [address] [place] [address] Phone Care Team Providers Care Product Marketing Engineer Name Role Phone Carmita Cha MD Primary Care Provider [phone] Allergies Active Allergy Reactions Criticality Noted Date Comments Shellfish Containing Products Hives High 2023 Medications SUMAtriptan (IMITREX) 25 mg tablet Take 1 tablet by mouth as needed for headaches. May repeat dose once after 2 hours, if needed. 4 11/27/19 25 Active hydrOXYzine HCL (ATARAX) 10 mg tablet TAKE 1 TABLET BY MOUTH TWICE A DAY NEEDED FOR ITCHING 4 Active nystatin (MYCOSTATIN) 100,000 unit/gram powder Apply 1 g topically 2 times daily for 360 days. 4 11/27/19 25 Active omeprazole (PriLOSEC) [address] capsule Take 1 capsule (20 mg total) by mouth 1 (one) time each day. 90 capsule 1 4 Active loratadine (CLARITIN) 10 mg tablet Take 1 tablet (10 mg total) by mouth 1 (one) time each day. 30 each 5 4 02/14/20 25 Active cholecalciferol (Vitamin D3) 50 mcg (2,000 unit) tablet Take 1 tablet (2,000 Units total) by mouth 1 (one) time each day. 90 tablet 2 4 Active ferrous sulfate 325 mg (65 mg iron) EC tablet Take 1 tablet (325 mg total) by mouth 3 (three) times a day with meals. Do not crush, chew, or split. 90 each 11 4 08/17/20 25 Active acetaminophen (TYLENOL 8 HOUR) 650 mg 8 hr tablet Take 1 tablet (650 mg total) by mouth every 8 (eight) hours if needed for mild pain. Do not crush, chew, or split. 30 tablet 5 Active oxyCODONE (ROXICODONE) 5 mg immediate release tabletIndicatio ns:Carpal tunnel syndrome on right Take 1 tablet (5 mg total) by mouth every 6 (six) hours if needed for severe pain for up to 6 doses. Max Daily Amount: 20 mg 6 tablet 5 Active tiZANidine (ZANAFLEX) 2 mg tablet TAKE 1 TABLET BY MOUTH AT BEDTIME NEEDED FOR MUSCLE SPASMS. 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 05/26/2023 Encounters Date Type Department Care Team Description 10/01/2024 11:30 AM EST Office Visit Orthopedic Surgery - [place] [facility] [address] [place] [phone] Denita Saeed PA S/P carpal tunnel release (Primary Dx) 09/19/2024 9:00 AM EST - 09/19/2024 10:15 AM EST Surgery [facility] OR [address] [place] [phone] Lisha Ramsay MD RIGHT ENDOSCOPIC CARPAL TUNNEL RELEASE [90075 (CPT??)] 09/19/2024 8:41 AM EST Anesthesia Event [facility] [address] [place] [phone] Nancy Calvo MD Elliott, Barbara J, CRNA 09/19/2024 7:17 AM EST - 09/19/2024 10:25 AM EST Hospital Encounter [facility] OR [address] [place] [phone] Lisha Ramsay MD Carpal tunnel syndrome on right (Primary Dx) Discharge Disposition: Home or Self Care 09/11/2024 1:15 PM EST Consult Orthopedic Surgery - [place] [facility] [address] [place] [phone] Lisha Ramsay MD Carpal tunnel syndrome on right (Primary Dx) 09/04/2024 Telephone Orthopedic Surgery [facility] [address] [place] [phone] Pretty Tapia 08/17/2024 2:30 PM EST Office Visit Internal Medicine - [place] [facility] [address] [place] [phone] Carmita Cha MD Adult general medical examination (Primary Dx); Chronic midline thoracic back pain; Obesity (BMI 35.0-39.9 without comorbidity); Iron deficiency anemia, unspecified iron deficiency anemia type; Vitamin D deficiency from Last 3 Months Surgical History Surgery Date Site/Laterality Comments SECTION PROCEDURE: HISTORICAL DELIVERY APPENDECTOMY PROCEDURE: HISTORICAL APPENDECTOMY Medical History Medical History Date Comments GERD (gastroesophageal reflux disease) Anemia Chronic pain disorder Anxiety situational Arthritis Joint pain l le sciatica Family History Medical History Relation Name Comments Diabetes Father Hypertension Father Diabetes Mother Relation Name Status Comments Father Mother Social History Tobacco Use Types Packs/Day Years Used Date Smoking Tobacco: Never Smokeless Tobacco: Never Tobacco Cessation:Counseling Given: Not Answered Alcohol Use Standard Drinks/Week Comments Yes 0 (1 standard drink = 0.6 oz pur e alcohol) OCCASIONALLY Interpersonal Safety Answer Date Record ed Physical Abuse 09/19/2024 Verbal Abuse 09/19/2024 Comments No Sex and Gender Information Value Date Recorded Sex Assigned at Female 09/17/2024 3:15 PM EST Legal Sex Female 11:37 PM EST Gender Identity Female 09/17/2024 3:15 PM EST Sexual Orientation Straight 09/17/2024 3: 15 PM EST Obstetrics History Last Filed Vital Signs Vital Sign Reading Time Taken Comments Blood Pressure 115/83 09/19/2024 9:39 AM EST Pulse 65 09/19/2024 9:39 AM EST Temperature 36.5 ??C (97.7 ??F) 09/19/2024 9:39 AM ES T Respiratory Rate 16 09/19/2024 7:35 AM EST Oxygen Saturation 99% 09/19/2024 9:39 AM EST Inhaled Oxygen Concentration - - Weight 97.5 kg (215 lb) 09/11/2024 1:32 PM EST Height 157.5 cm (5' 2 ) 09/11/2024 1:32 PM EST Body Mass Index 39.32 09/11/2024 1:32 PM EST Plan of Treatment Health Maintenance Due Date Last Done Comments Hepatitis B Vaccines (1 of 3 - 19+ 3-dose series) 02/28/2008 Cervical Cancer Screening: P ap Smear 01/22/2018 01/22/2015, 01/22/2015 HIV Screening 07/25/2022 Hepatitis C Screening 07/25/2022 Social Influencers of Health Screening 07/25/2022 COVID-19 Vaccine (3 - 2023-2 5 season) 2024 01/17/2021, 12/18/2020 Influenza Vaccine (#1) 2024 06/19/2010 Depression Screening 02/14/2025 02/15/2024 Cholesterol Screening (Lipid Panel) 05/27/2029 05/27/2024, 05/27/2023 DTaP,Tdap,and Td Vaccines (2 - Td or Tdap) 11/11/2031 11/10/2021 HPV Vaccines Completed 12/13/2023, 06/28/2023, 05/02/2023 HIB Vaccines Aged Out No longer eligi ble based on patient's age to complete this topic Hepatitis A Vaccines Aged Out No long er eligible based on patient's age to complete this topic IPV Vaccines Aged Out No longer eligi ble based on patient's age to complete this topic MMR Vaccines Aged Out No longer eligi ble based on patient's age to complete this topic Meningococcal ACWY Vaccine Aged Out N o longer eligible based on patient's age to complete this topic Meningococcal B Vacine Aged Out No lo nger eligible based on patient's age to complete this topic Pneumococcal Vaccine: Pediatrics (0 to 5 Years) and At-Risk Patients (6 to 64 Years) Aged Out No longer eligible b ased on patient's age to complete this topic RSV Immunization Patients Under 20 months Aged Out No longer eligible b ased on patient's age to complete this topic Varicella Vaccines Aged Out No longer eligible based on patient's age to complete this topic Procedures Procedure Name Priority Date/Time Associated Diagnosis Comments UT ENDOSCOPY WRIST SURGICAL WITH RELEASE TRANSVERSE CARPAL LIGAMENT 09/19/2024 8:40 AM EST Carpal tunnel syndrome, right upper limb Case Notes IV SED VITAMIN D 25 HYDROXY Routine 08/17/2024 3:04 PM EST Chronic midline thoracic back pain Obesity (BMI 35.0-39.9 without comorbidity) Adult general medical examination THYROID STIMULATING HORMONE Routine 08/17/2024 3:04 PM EST Chronic midline thoracic back pain Obesity (BMI 35.0-39.9 without comorbidity) Adult general medical examination COMPLETE BLOOD COUNT Routine 08/17/2024 3:04 PM EST Chronic midline thoracic back pain Obesity (BMI 35.0-39.9 without comorbidity) Adult general medical examination COMPREHENSIVE METABOLIC PANEL Routine 08/17/2024 3:04 PM EST Chronic midline thoracic back pain Obesity (BMI 35.0-39.9 without comorbidity) Adult general medical examination LIPID PANEL Routine 05/27/2024 DEPRESSION SCREENING Routine 02/15/2024 HPV Routine 01/22/2015 from Last 3 Months or Most Recently Relevant to Health Maintenance Results * (ABNORMAL) Vitamin D 25 hydroxy (08/17/2024 3:04 PM EST) Vit D, 25-Hydroxy 18.8(L) 30.0 - 80.0 ng/mL LAB CHEMISTRY METHOD 08/17/2024 6:46 PM EST [facility] Blood Venous blood specimen / Unknown Venipuncture / Unknown 08/17/2024 3:04 PM EST 08/17/2024 3:04 PM EST us Carmita Cha MD LAB BLOOD ORDERABLES Final Res ult [facility] [address] [place] [address], [place] [phone] * (ABNORMAL) Complete blood count (08/17/2024 3:04 PM EST) WBC 8.6 4.8 - 10.8 K/mcL LAB HEMETOLOGY METHOD 08/17/2024 6:27 PM [facility] RBC 4.30 3.80 - 4.80 M/mcL LAB HEMETOLOGY METHOD 08/17/2024 6:27 PM [facility] Hemoglobin 10.6(L) 11.5 - 16.0 g/dL LAB HEMETOLOGY METHOD 08/17/2024 6:27 PM [facility] Hematocrit 34.7(L) 35.0 - 47.0 % LAB HEMETOLOGY METHOD 08/17/2024 6:27 PM [facility] MCV 80.1 79.0 - 98.0 FL LAB HEMETOLOGY METHOD 08/17/2024 6:27 PM [facility] MCH 24.5(L) 27.0 - 32.0 pcg LAB HEMETOLOGY METHOD 08/17/2024 6:27 PM [facility] MCHC 30.5(L) 32.0 - 37.0 g/dL LAB HEMETOLOGY METHOD 08/17/2024 6:27 PM [facility] RDW 14.9 11.0 - 15.0 % LAB HEMETOLOGY METHOD 08/17/2024 6:27 PM [facility] Platelets 366 130 - 400 K/mcL LAB HEMETOLOGY METHOD 08/17/2024 6:27 PM [facility] MPV 10.9 7.0 - 11.0 FL LAB HEMETOLOGY METHOD 08/17/2024 6:27 PM EST [facility] NRBC 0.0 <1.0 % LAB HEMETOLOGY METHOD 08/17/2024 6:27 PM EST [facility] NRBC Absolute 0.00 <0.10 K/mcL LAB HEMETOLOGY METHOD 08/17/2024 6:27 PM EST [facility] Blood Venous blood specimen / Unknown Venipuncture / Unknown 08/17/2024 3:04 PM EST 08/17/2024 3:04 PM EST us Carmita Cha MD LAB BLOOD ORDERABLES Final Res ult [facility] [address] [place] [address], [place] [phone] * Thyroid stimulating hormone (08/17/2024 3:04 PM EST) Pathologist [facility] TSH 1.24 0.40 - 4.00 mcIU/mL LAB CHEMISTRY METHOD 08/17/2024 6:46 PM EST [facility] Blood Venous blood specimen / Unknown Venipuncture / Unknown 08/17/2024 3:04 PM EST 08/17/2024 3:04 PM EST us Carmita Cha MD LAB BLOOD ORDERABLES Final Res ult [facility] [address] [place] [address], [place] [phone] * (ABNORMAL) Comprehensive metabolic panel (08/17/2024 3:04 PM EST) Sodium 137 133 - 145 mmol/L LAB CHEMISTRY METHOD 08/17/2024 6:39 PM EST [facility] Potassium 4.2 3.5 - 5.5 mmol/L LAB CHEMISTRY METHOD 08/17/2024 6:39 PM EST [facility] Chloride 108 96 - 110 mmol/L LAB CHEMISTRY METHOD 08/17/2024 6:39 PM [facility] CO2 27 21 - 32 mmol/L LAB CHEMISTRY METHOD 08/17/2024 6:39 PM [facility] Anion Gap 2(L) 3 - 11 LAB CHEMISTRY METHOD 08/17/2024 6:39 PM [facility] Glucose 73 70 - 100 mg/dL LAB CHEMISTRY METHOD 08/17/2024 6:39 PM [facility] BUN 9 5 - 25 mg/dL LAB CHEMISTRY METHOD 08/17/2024 6:39 PM [facility] Creatinine 0.67 0.50 - 1.10 mg/dL LAB CHEMISTRY METHOD 08/17/2024 6:39 PM [facility] eGFR 117 >=60 mL/min/1. 73m2 LAB CHEMISTRY METHOD 08/17/2024 6:39 PM [facility] Comment:Calculation based on the??Chronic Kidney Disease Epidemiology Collaboration (CKD-EPI) equation refit??without adjustment for race. BUN/Creatinine Ratio 13.4 LAB CHEMISTRY METHOD 08/17/2024 6:39 PM [facility] Calcium 9.4 8.5 - 10.5 mg/dL LAB CHEMISTRY METHOD 08/17/2024 6:39 PM [facility] AST (SGOT) 10 10 - 42 unit/L LAB CHEMISTRY METHOD 08/17/2024 6:39 PM [facility] ALT (SGPT) 17 10 - 60 unit/L LAB CHEMISTRY METHOD 08/17/2024 6:39 PM [facility] Alkaline Phosphatase 77 42 - 121 unit/L LAB CHEMISTRY METHOD 08/17/2024 6:39 PM [facility] Total Protein 7.6 6.0 - 8.0 g/dL LAB CHEMISTRY METHOD 08/17/2024 6:39 PM [facility] Albumin 3.5 3.2 - 5.0 g/dL LAB CHEMISTRY METHOD 08/17/2024 6:39 PM EST [facility] Total Bilirubin 0.3 0.0 - 1.4 mg/dL LAB CHEMISTRY METHOD 08/17/2024 6:39 PM EST [facility] Blood Venous blood specimen / Unknown Venipuncture / Unknown 08/17/2024 3:04 PM EST 08/17/2024 3:04 PM EST Carmita Cha MD LAB BLOOD ORDERABLES Final Res ult [facility] [address] [place] [address], * Lipid panel (05/27/2024) Pathologist [facility] LDL/HDL Ratio 3 0 - 4 LDL Cholesterol 72 0 - 100 mg/dL Blood Venous blood specimen / Unknown Gaudencio Riley MD LAB BLOOD ORDERABLES Bella l Result * Depression Screening (02/15/2024) Pathologist [facility] Depression Screening abstracted Historical Provider HEALTH MAINTENANCE Final Result * Cervical Cancer Screening: HPV (01/22/2015) Pathologist [facility] Cervical Cancer Screening: HPV abstracted, no interpretation Historical Provider HEALTH MAINTENANCE Final Result from Last 3 Months or Most Recently Relevant to Health Maintenance Insurance [facility] Care Teams Product Marketing Engineer Relationship Specialty Start Date End Date Carmita Cha MD [address] [place] [phone] PCP - General Internal Medicine 05/13/21
--- OUTSIDE RECORDS SUMMARY | 2024-10-31 10:17 | XMS_ITS | Encounter Summary ---
Author Organization [facility] Address [address] [place] [address] Care Team Providers Care Nail Polish Brush Machine Feeder Name Role Phone Carmita Cha MD Primary Care Provider [phone] Reason for Visit * Reason Comments Post-op Encounter Details Date Type Department Care Team ([facility] st Contact Info) Description 10/01/2024 11:30 AM EST Office Visit Orthopedic Surgery - [place] [address] [facility] [address] [place] [address] Denita Saeed PA [address] [facility] [address] [place] [phone] S/P carpal tunnel release (Primary Dx) Social History Tobacco Use Types Packs/Day Years Used Date Smoking Tobacco: Never Smokeless Tobacco: Never Alcohol Use Standard Drinks/Week Comments Yes 0 [...] Orientation Straight 09/17/2024 3: 15 PM EST documented as of this encounter Progress Notes * LILIAN Severino - 10/01/2024 11:30 AM EST Patient: Alyssa Mcneal : 1990 VISIT DATE: 10/01/2024 HPI: Fredis is a 34 y.o. year old female who presents for post-operative follow-up. Patient underwent right endoscopic carpal tunnel release with Dr. Ramsay on 09/19/2024. She is doing well. Mild pain at the palm of her hand. Numbness and tingling is resolved as well as nighttime symptoms. Physical Exam: Sutures removed. Surgical incision sites clean dry and intact. No wound dehiscence or signs of infection. Mild swelling over endoscopic surgical site. She can make a light fist. Assessment and Plan: 1. S/P carpal tunnel release Patient is status post the above doing well. Discussed slowly resuming regular activities to tolerance. She is a [employer] and I did give her a work note to be light duty with no lifting, pushing, pulling,or gripping over 5 to 10 pounds on the right for the next 6 weeks. She does not need any occupational therapy. No follow-up given if there is any problems she knows to call the office. There are no diagnoses linked to this encounter. LILIAN Severino documented in this encounter Plan of Treatment Not on file documented as of this encounter Visit Diagnoses Diagnosis S/P carpal tunnel release- Primary Other postprocedural status documented in this encounter Care Teams Nail Polish Brush Machine Feeder Relationship Specialty Start Date End Date Carmita Cha MD [address] [place] [phone] PCP - General Internal Medicine 05/13/21 documented as of this encounter
[2024-10-31 10:20] LABS: Influenza A PCR NEGATIVE (Negative); Influenza B PCR NEGATIVE (Negative); Resp Syncy Virus RNA Qual PCR NEGATIVE (Negative); SARS COV2 PCR INHOUSE NEGATIVE (Negative)
[2024-10-31 10:30] VITALS: BP 129/66; PULSE 99; RESP 16; TEMP 35.9; O2SAT 97
== END 2024-10-31 10:38 | disposition home or self-care (01) ==
PROVIDERS: Emergency Provider Emergency Medicine Emergency Medical Services; PCP Internal Medicine
DX: J02.0 Streptococcal pharyngitis (principal); H92.02 Otalgia, left ear; Z03.818 Encounter for observation for suspected exposure to other biological agents ruled out; Z79.899 Other long term (current) drug therapy
CPT/HCPCS: 0241U; 87651; 99282; 99283

== ENCOUNTER 2024-11-15 08:57 | Emergency (ER) | payer OTHER, SELFPAY ==
--- NOTE | ~2024-11-15 | XR_ITS ---
EXAMINATION: XR CHEST 2 VIEWS HISTORY: chest pressure COMPARISON: Comparison is made with the prior examination dated 06/26/2023. FINDINGS: PA and lateral views of the chest are submitted. The lungs are expanded and clear. There is no pleural effusion, pneumothorax, or pulmonary vascular congestion. The heart is normal in size. The bones are intact. XR/XR chest 2V IMPRESSION: No acute cardiopulmonary abnormality. Electronically signed by: José Miguel Silva MD 11/15/2024 09:29 AM EDT
--- NOTE | 2024-11-15 08:59 | ECG_ITS ---
Test Reason : CP Blood Pressure : */* mmHG Vent. Rate : 80 BPM Atrial Rate : 80 BPM P-R Int : 144 ms QRS Dur : 78 ms QT Int : 398 ms P-R-T Axes : 57 33 28 degrees QTcB Int : 459 ms Normal sinus rhythm Normal ECG When compared with ECG of 12-Mar-2023 19:53, No significant change was found Referred By: Generic ED Physician Electronically Signed By: JUDAH RAMIREZ MD
[2024-11-15 09:06] VITALS: BP 118/57; PULSE 77; RESP 18; TEMP 36.7; O2SAT 99; BMI 39.9
[2024-11-15 09:34] LABS: MANUAL DIFF FLAG NO
[2024-11-15 09:35] LABS: Basophils Percent Auto 0.3 % (0-2); Eosinophils Absolute Auto 0.2 X10*3/uL (0.0-0.4); Eosinophils Percent Auto 2.3 % (0-4); Hematocrit 33.2 % (37.0-47.0); Hemoglobin 10.7 g/dl (12.0-16.0); Imm Gran Abs Auto 0.02 X10*3/uL (0.00-0.03); Imm Gran Pct Auto 0.3 % (0.0-0.4); Lymphocytes Absolute Auto 2.2 X10*3/uL (1.2-4.9); Lymphocytes Percent Auto 29.8 % (20-40); Mean Corpuscular HGB Conc 32.2 g/dl (31.0-35.0); Mean Corpuscular Volume 74.4 fL (80.0-98.0); Mean Platelet Volume 9.7 fL (9.4-12.3); Monocytes Absolute Auto 0.4 X10*3/uL (0.1-1.2); Monocytes Percent Auto 5.6 % (2-11); Neutrophils Absolute Auto 4.6 x10*3/uL (2.0-8.3); Neutrophils Percent Auto 61.7 % (45-73); Platelet Count 334 X10*3/uL (160-400); Red Blood Count 4.46 X10*6/uL (4.20-5.50); Red Cell Distribution Width 15.8 % (11.0-16.0); White Blood Count 7.4 X10*3/uL (4.8-10.8)
[2024-11-15 09:55] LABS: Alanine Aminotransferase 15 U/L (0-31); Albumin Level 3.8 g/dL (3.5-5.0); Alkaline Phosphatase 77 U/L (39-117); Anion Gap 10 (12-20); Aspartate Amino Transferase 23 U/L (5-31); Bilirubin Total 0.4 mg/dL (0.0-1.0); Blood Urea Nitrogen 8 mg/dL (9-16); Calcium 8.6 mg/dL (8.4-10.2); Carbon Dioxide 23 mmol/L (22-29); Chloride 112 mmol/L (96-108); Creatinine Clr Calc Pharmacy 139.1; Estimated Glomerular Filt Rate > 60; Glucose Random 88 mg/dL (60-115); Potassium 4.5 mmol/L (3.3-5.1); Sodium 140 mmol/L (135-145); Total Protein 7.7 g/dL (6.5-8.0)
[2024-11-15 09:56] LABS: Troponin-I High Sensitivity < 2.7 ng/L (<3.5-17.0)
[2024-11-15 10:08] LABS: B Type Natriuretic Peptide < 10 pg/mL (<100)
--- NOTE | 2024-11-15 10:18 | ED_ITS ---
HPI - Chest Pain General Chief Complaint: Chest Pain Stated Complaint: CP/pressure Time Seen by Provider: 11/15/24 09:39 Source: patient Mode of arrival: ambulatory Limitations: no limitations History of Present Illness ED Provider: Viktor Samuel HPI narrative: 34 yold female with pmh of acid reflux presents to the ED for midsternal chest pain for the past two weeks which is worse on movement and stretching of arms. patient denies any recent long travel leg swelling, calf pain, or pleurisy. Patient admits to having wrist surgery in August [facility] under general anesthesia. Patient denies any shortness of breath Related Data Previous Rx's ?Medication ?Instructions ?Recorded aspirin 81 mg tablet,delayed 162 mg (2 x 81 mg) PO DAILY #300 06/23/21 release (Adult Aspirin Regimen) tabs vitamin with calcium 1 tab PO DAILY #300 tabs 06/23/21 no.72-iron 27 mg-folic acid 1 mg tablet ( Vitamins Plus Low Iron) doxylamine succinate 25 mg tablet 12.5 mg (1/2 x 25 mg) PO BEDTIME 07/02/21 (Unisom (doxylamine)) sleep 30 days #15 tabs pyridoxine (vitamin B6) 25 mg 25 mg PO TID 30 days #90 tabs 07/02/21 tablet famotidine 10 mg tablet (Pepcid AC) 10 mg PO BID 30 days #60 tabs 10/30/21 ferrous sulfate 325 mg (65 mg 325 mg PO DAILY 90 days #90 tabs 11/11/21 iron) tablet,delayed release amoxicillin 500 mg-potassium 1 tab PO BID 10 days #20 tabs 02/24/22 clavulanate 125 mg tablet (Augmentin) acetaminophen 500 mg tablet 500 mg PO Q6H PRN fever or pain 12/30/22 #14 tabs cyclobenzaprine 5 mg tablet 5 mg PO TID PRN muscle spasm #7 12/30/22 tabs pantoprazole 40 mg tablet,delayed 40 mg PO DAILY #14 tabs 03/02/23 release (Protonix) penicillin V potassium 500 mg 500 mg PO BID 10 days #20 tabs 03/12/23 tablet prednisone 20 mg tablet 20 mg PO DAILY 7 days #7 tabs 03/12/23 amoxicillin 875 mg-potassium 1 tab PO BID 7 days #14 tabs 04/08/23 clavulanate 125 mg tablet acetaminophen 500 mg tablet 1,000 mg (2 x 500 mg) PO QID PRN 06/26/23 pain #30 tabs cyclobenzaprine 5 mg tablet 5 mg PO TID PRN muscle spasm #14 06/26/23 tabs ibuprofen 600 mg tablet 600 mg PO Q6H PRN pain #20 tabs 06/26/23 fluticasone propionate 50 1 spray intranasal DAILY #16 grams 07/11/23 mcg/actuation nasal spray,suspension (Flonase Allergy Relief) amoxicillin 875 mg-potassium 1 tab PO Q12H #14 tabs 03/06/24 clavulanate 125 mg tablet cyclobenzaprine 5 mg tablet 5 mg PO Q8H PRN muscle pain #7 tabs 06/07/24 amoxicillin 875 mg-potassium 1 tab PO BID #19 tabs 06/12/24 clavulanate 125 mg tablet penicillin V potassium 500 mg 500 mg PO BID 10 days #20 tabs 10/31/24 tablet naproxen 500 mg tablet 500 mg PO BID PRN pain #14 tabs 11/15/24 Allergies Allergy/AdvReac Type Severity Reaction Status Date / Time shellfish derived Allergy Mild Hives Verified 11/15/24 09:06 Review of Systems 2 Review of Systems: Midsternal chest pain Yes all other systems are reviewed and are negative [facility] Past Medical History Medical History Cervical cancer screening Obesity (BMI 30-39.9) Migraine Surgical History H/O emergency section Family History Family History Maternal Grandmother Diabetes mellitus Maternal Aunt Cancer of breast, female Social History Social History Household Members: Children Housing: House Are you a primary hospice home care coordinator to a significant other at home: No Do you presently have visiting nurse or other home services: No Alcohol intake: never Patient Tobacco Use Status: Never used Tobacco Smoked in Last 30 Days: No Use of substances other than those prescribed or required for medical reasons: No Agree to transfusion: Yes Advance Directives: No Advance Directives Information Provided: Yes Do you have a plan to hurt others: No Plan Patient : No service: No 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al status: employed 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: The patient states that she is a [employer] , 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al exposures/hazards: No Cognitive needs: No Hearing needs: No Vision needs: No Physical Exam 2 Vital Signs: Vital Signs: Last Vital Signs Temp 98.0 F 11/15/24 12:25 Pulse 66 11/15/24 12:25 Resp 16 11/15/24 12:25 BP 102/54 L 11/15/24 12:25 Pulse Ox 100 11/15/24 11:44 O2 Del Method Room Air 11/15/24 11:44 BMI result Body Mass Index 39.9 Const: General: cooperative, healthy appearing, comfortable, no acute distress, well developed, alert, awake and Physically active O rientation/consciousness: patient oriented x3 HEENT: Head: Yes normal to inspection, Yes No palpable skull fracture present, Yes normocephalic and Yes atraumatic Eyes: General: appearance normal, both eyes and all related structures Neck: Neck: Yes normal visual inspection, Yes full ROM, Yes no lymphadenopathy, Yes no meningeal signs, Yes trachea midline, Yes supple, No anterior neck swelling and No tender Chest: Other: positive for midsternal chest wall tenderness on palpation. Chest palpation & inspection: normal inspection of the chest and normal palpation of entire chest wall Breast/axilla inspection: normal inspection of the breasts and normal inspection of the axillae Breast/axilla palpation: n ormal palpation of the breasts and normal palpation of the axillae Resp: Effort & Inspection: normal respiratory effort and able to speak in complete sentences Auscultation: clear to auscultation bilaterally Cardio: Jugular venous distension: no JVD Heart sounds: S1 normal heart sound present and S2 normal heart sound present GI: Inspection: Yes normal to inspection Palpation (GI): Soft to palpation, not firm, nontender, no guarding and not rigid : General: Yes no CVA tenderness Back/Spine/Pelvis: Back: no CVA tenderness and No back tenderness Skin: General skin exam: no rashes or lesions noted, elasticity normal and turgor normal Neuro: General: patient oriented x3, gait normal, tone normal, moves all extremities, Normal light touch and pain sensation, no meningeal signs, no focal motor deficits, CN's II-XI intact bilaterally and normal sensation to monofilament Extrem: Other: bilateral lower extremity negative for swelling, pitting edema, or calf tenderness. General: Yes normal to inspection, Yes full ROM and Yes capillary refill normal Psych: Appearance: grossly normal, well kempt and not disheveled Medical Decision Making Medical Decision Making [facility] Narrative: 34-year-old female presents to ED for midsternal chest pain for the past two weeks that is worse on movement and lifting / stretching of upper extremities. Patient denies any calf pain, pleurisy, control use or recent travel. Patient had surgery she states in August or , does not recall which exact month. Chest x-ray normal. EKG normal. Vital signs stable. Although patient denies any pleurisy due to patient stating having surgery in September we will do D-dimer. 11:30am: patient's troponin after having chest pain for 2 weeks came back negative. No need for repeat troponin. Heart score 1. D-dimer negative. PERC Score 0. Patient informed to follow up with PCP. Not suspecting CHF, MD, Myocarditits, Pericarditits, Pnuemothorax, Hemothorax, PE, Aortic Dissection, or any other life threatening etiology. patient's chest pain is more muscular. Patient explained worrisome signs and informed to return to the ED Differential Diagnosis Differential Diagnoses: The differential diagnosis associated with the presentation includes ( MD, pneumonia, pneumothorax, hemothorax) Admission/Observation Consideration of admission/observation: Escalation of care including admission/observation considered Lab Data [facility] Lab Attestation statement: I reviewed the patient's lab results. 11/15/24 09:30 11/15/24 09:30 Labs: Lab Results 11/15/24 11/15/24 Range/Units 09:30 10:44 WBC 7.4 (4.8-10.8) X10*3/uL RBC 4.46 (4.20-5.50) X10*6/uL Hgb 10.7 L (12.0-16.0) g/dl Hct 33.2 L (37.0-47.0) % MCV 74.4 L (80.0-98.0) fL MCH 24.0 L (27.0-33.0) pg MCHC 32.2 (31.0-35.0) g/dl RDW 15.8 (11.0-16.0) % Plt Count 334 (160-400) X10*3/uL MPV 9.7 (9.4-12.3) fL Immature Gran % (Auto) 0.3 (0.0-0.4) % Neut % (Auto) 61.7 (45-73) % Lymph % (Auto) 29.8 (20-40) % [place] % (Auto) 5.6 (2-11) % Eos % (Auto) 2.3 (0-4) % Baso % (Auto) 0.3 (0-2) % Lymph # (Auto) 2.2 (1.2-4.9) X10*3/uL [place] # (Auto) 0.4 (0.1-1.2) X10*3/uL Eos # (Auto) 0.2 (0.0-0.4) X10*3/uL Baso # (Auto) 0.0 (0.0-0.2) X10*3/uL Abs Immat Gran (auto) 0.02 (0.00-0.03) X10*3/uL Absolute Neuts (auto) 4.6 (2.0-8.3) x10*3/uL Absolute Nucleated RBC 0.000 (0.0-0.012) X10*3/uL Nucleated RBC % (auto) 0.0 (0.0-0.2) /100WBC PT 11.9 (10.9-12.4) SEC INR 1.0 (0.9-1.1) APTT 32.0 (26.0-36.8) SEC D-Dimer High Sensitivty < 150 NG/ML Sodium 140 (135-145) mmol/L Potassium 4.5 (3.3-5.1) mmol/L Chloride 112 H (96-108) mmol/L Carbon Dioxide 23 (22-29) mmol/L Anion Gap 10 L (12-20) BUN 8 L (9-16) mg/dL Creatinine 0.62 (0.5-1.4) mg/dL Estim Creat Clear Calc 139.1 Estimated GFR > 60 Random Glucose 88 (60-115) mg/dL Calcium 8.6 (8.4-10.2) mg/dL Total Bilirubin 0.4 (0.0-1.0) mg/dL AST 23 (5-31) U/L ALT 15 (0-31) U/L Alkaline Phosphatase 77 (39-117) U/L Troponin I High Sens < 2.7 (<3.5-17.0) ng/L B-Natriuretic Peptide < 10 (<100) pg/mL Total Protein 7.7 (6.5-8.0) g/dL Albumin 3.8 (3.5-5.0) g/dL Independent Interpretation I performed an independent interpretation of an: EKG (Negative STEMI) and Plain X-Ray Independent Historian Clinical information obtained from an independent historian. History obtained from or confirmed by: Other (patient) Prescription Management I considered prescription management with: Pain Medication Discharge Plan Discharge Clinical Impression: Atypical chest pain Patient Disposition: Home, Self-Care Instructions: Chest Pain (DC), Chest Wall Pain (ED) Additional Instructions: your EKG blood work and imaging came back reassuring. Recommend follow-up with your primary care provider. Return to the ED immediately for any worsening chest pain, coughing up blood, chest pain inspiration, leg swelling, calf pain, breast swelling, nipple discharge, or any other concerning symptoms. [id number] NSAIDs such as Motrin and naproxen can be used for pain relief. Prescriptions: New naproxen 500 mg tablet 500 mg PO BID PRN (Reason: pain) Qty: 14 0RF No Action ferrous sulfate 325 mg (65 mg iron) tablet,delayed release (DR/EC) 325 mg PO DAILY 90 Days Qty: 90 3RF amoxicillin-pot clavulanate [Augmentin] 500-125 mg tablet 1 tab PO BID 10 Days Qty: 20 0RF pantoprazole [Protonix] 40 mg tablet,delayed release (DR/EC) 40 mg PO DAILY Qty: 14 0RF amoxicillin-pot clavulanate 875-125 mg tablet 1 tab PO BID 7 Days Qty: 14 0RF cyclobenzaprine 5 mg tablet 5 mg PO Q8H PRN (Reason: muscle pain) Qty: 7 0RF amoxicillin-pot clavulanate 875-125 mg tablet 1 tab PO BID Qty: 19 0RF cyclobenzaprine 5 mg tablet 5 mg PO TID PRN (Reason: muscle spasm) Qty: 7 0RF acetaminophen 500 mg tablet 500 mg PO Q6H PRN (Reason: fever or pain) Qty: 14 0RF prednisone 20 mg tablet 20 mg PO DAILY 7 Days Qty: 7 0RF penicillin V potassium 500 mg tablet 500 mg PO BID 10 Days Qty: 20 0RF acetaminophen 500 mg tablet 1,000 mg PO QID PRN (Reason: pain) Qty: 30 0RF ibuprofen 600 mg tablet 600 mg PO Q6H PRN (Reason: pain) Qty: 20 0RF cyclobenzaprine 5 mg tablet 5 mg PO TID PRN (Reason: muscle spasm) Qty: 14 0RF fluticasone propionate [Flonase Allergy Relief] 50 mcg/actuation spray,suspension 1 spray intranasal DAILY Qty: 16 0RF Rx Instructions: administer into each nostril amoxicillin-pot clavulanate 875-125 mg tablet 1 tab PO Q12H Qty: 14 0RF penicillin V potassium 500 mg tablet 500 mg PO BID 10 Days Qty: 20 0RF Vitamin Plus Low Iron 27 mg iron- 1 mg tablet 1 tab PO DAILY Qty: 300 2RF aspirin [Adult Aspirin Regimen] 81 mg tablet,delayed release (DR/EC) 162 mg PO DAILY Qty: 300 2RF Unisom (doxylamine) 25 mg tablet 12.5 mg PO BEDTIME 30 Days Qty: 15 0RF pyridoxine (vitamin B6) 25 mg tablet 25 mg PO TID 30 Days Qty: 90 0RF Boostrix Tdap 2.5-8-5 Lf-mcg-Lf/0.5mL syringe 0.5 ml IM ONCE Qty: 0.5 0RF famotidine [Pepcid AC] 10 mg tablet 10 mg PO BID 30 Days Qty: 60 2RF Referrals: [facility] [Provider Group] (Chest pain for 2 weeks) Carmita Cha MD [Primary Care Provider] - ( chest wall pain for 2 weeks) Stand Alone Forms: Work/School Release Interventions: ED Discharge Assessment Last Done: 11/15/24 12:25 Discharge Date/Time: 11/15/24 12:26 Print Language: German
[2024-11-15 10:57] LABS: Prothrombin Time 11.9 SEC (10.9-12.4)
[2024-11-15 11:00] LABS: D Dimer High Sensitivity < 150 NG/ML
[2024-11-15 11:44] VITALS: BP 99/47; PULSE 70; RESP 16; TEMP 36.4; O2SAT 100
[2024-11-15 12:18] VITALS: BP 102/54; PULSE 66
[2024-11-15 12:25] VITALS: BP 102/54; PULSE 66; RESP 16; TEMP 36.7
== END 2024-11-15 12:26 | disposition home or self-care (01) ==
PROVIDERS: Physician Assistant; Emergency Provider Emergency Medicine; PCP Internal Medicine
DX: R07.89 Other chest pain (principal); Z79.82 Long term (current) use of aspirin; Z79.899 Other long term (current) drug therapy
CPT/HCPCS: 36415; 71046; 80053; 83880; 84484; 85025; 85379; 85610; 85730; 93005; 99283; 99285

== ENCOUNTER → 2024-11-15 08:59 | Outpatient (BNV) | payer OTHER, SELFPAY | PROVIDERS: Emergency Provider Emergency Medicine; PCP Internal Medicine; Visit Provider Internal Medicine Cardiovascular Disease | DX: R07.9 Chest pain, unspecified (principal) | CPT/HCPCS: 93010 ==

== ENCOUNTER → 2024-11-15 09:20 | Outpatient (BNV) | payer OTHER, SELFPAY | PROVIDERS: Emergency Provider Emergency Medicine; PCP Internal Medicine; Visit Provider Radiology Diagnostic Radiology | DX: R10.9 Unspecified abdominal pain (principal) | CPT/HCPCS: 71046 ==

== ENCOUNTER 2025-03-15 23:53 | Emergency (ER) | payer OTHER, SELFPAY ==
--- OUTSIDE RECORDS SUMMARY | 2016-10-04 19:00 | XMS_ITS | Continuity of Care Document ---
Author Organization [facility] Address [address] [facility] [address] [place] [address] Phone Care Team Providers Care Crime Analyst Name Role Phone MD MUELLER CRAIG Unavailable Unavailable Advance Directives Directive Yes / No Effective Date File Name No Information Encounters Encounter Description Practice Location Reason(s) For Visit Diagnoses Date Provider Providers Copied on Encounter [facility], [address] [facility] [address], [place], [place], [id number], [place] tel:[phone] [facility] OBS OUTPATIENT No Information MD ARA MUELLER. [address] [facility] [address], [place], [place], [id number] , [place]. tel:[phone] Referring Provider: GENARO VALLES [facility], [address] [place], [address]. tel:[phone] Family History Family Member Type Diagnosis Age At Onset No Information Payers Payer name Insurance type Covered constitution party ID Authoriza tion(s) HUMANA O [id number] Social History Type Description Quantity Date Captured Comments Sex Female Smoking Status No Information Chief Complaint And Reason For Visit No Information History Of Present Illness Encounter Date Complaint History Of Prese nt Illness No Information Instructions Date Instruction Additional Infor mation No Information Assessments Type Assessment Date No Information
--- NOTE | ~2025-03-15 | CT_ITS ---
CLINICAL HISTORY: Abdominal Pain Tenderness; Diarrhea CT abdomen and pelvis with contrast Comparison: CT/[facility]/SR - CT ABDOMEN PELVIS WITHOUT IV CONTRAST - 03/02/23 11:31 EDT Findings: No consolidation or effusion. Heart size is normal. Spleen is normal. A small splenule is present. Hepatic parenchyma is normal. Gallbladder is normal. Pancreas is normal. Stomach is partially distended. Kidneys are normal in size. No nephrolithiasis or hydroureter. Small bowel is normal. Terminal ileum is normal. Cecum is normal. Appendix is normal. Ascending, transverse, and descending colon are normal. No abnormal wall thickening. Sigmoid colon is normal. Rectum is normal. Pelvic contents are unremarkable. Bladder is partially distended and partially opacified with excreted contrast. No hydroureter or periureteral stranding. The bones are intact. IMPRESSION: No acute intra-abdominal or pelvic findings. No focal bowel wall thickening. No evidence of diverticulitis. This document has been electronically signed by: Marc Salomon III, MD PHD on 03/16/2025 04:02:46
[2025-03-15 23:57] VITALS: BP 107/56; PULSE 90; RESP 20; TEMP 36.8; O2SAT 100; BMI 40.7
--- NOTE | 2025-03-16 00:42 | ED_ITS ---
HPI - Nausea/Vomiting/Diarrhea General Chief complaint: Nausea/Vomiting/Diarrhea Stated complaint: n/v/d, blood in stool Time Seen by Provider: 03/16/25 00:25 Source: patient Mode of arrival: ambulatory Limitations: no limitations History of Present Illness ED Provider: Poli QUINTANA HPI Narrative: The patient is a 35-year-old female presenting to the ED for evaluation of diarrhea with hematochezia and abdominal cramping which began this evening after dinner. Patient reports she ate a normal dinner she has eaten before without complication, however shortly thereafter she began experiencing abdominal cramping followed by abdominal pain resulting in moving her bowels. Patient noted diarrhea, and upon wiping had bright red blood on the toilet paper. The patient reports she has a history of hemorrhoids but has never experienced bleeding hemorrhoids before. The patient reports she felt constipated this morning, however since having the diarrhea is feeling weak and tremulous. The patient reports she felt a 2nd wave of cramping and suspected she would have additional diarrhea, however then just passed bright red blood. The patient reports a very extensive family history of cancer including colon cancer, and presents to the ED highly anxious. The patient denies associated fever/chills, vomiting, chest pain, shortness of breath, diaphoresis, recent sick contacts, or recent trauma. The patient reports she is status post x2, and had her fallopian tubes removed during the 2nd . Patient denies hysterectomy, appendectomy, cholecystectomy, or other surgical abdominal history. The patient denies any urinary symptoms. Related Data Previous Rx's ?Medication ?Instructions ?Recorded aspirin 81 mg tablet,delayed 162 mg (2 x 81 mg) PO SHIRA LY #300 06/23/21 release (Adult Aspirin Regimen) tabs vitamin with calcium 1 tab PO DAILY #300 tabs 06/23/21 no.72-iron 27 mg-folic acid 1 mg tablet ( Vitamins Plus Low Iron) doxylamine succinate 25 mg tablet 12.5 mg (1/2 x 25 mg ) PO BEDTIME 07/02/21 (Unisom (doxylamine)) sleep 30 days #15 tabs pyridoxine (vitamin B6) 25 mg 25 mg PO TID 30 days #90 tabs 07/02/21 tablet famotidine 10 mg tablet (Pepcid AC) 10 mg PO BID 30 da ys #60 tabs 10/30/21 ferrous sulfate 325 mg (65 mg 325 mg PO DAILY 90 days #90 tabs 11/11/21 iron) tablet,delayed release amoxicillin 500 mg-potassium 1 tab PO BID 10 days #20 tabs 02/24/22 clavulanate 125 mg tablet (Augmentin) acetaminophen 500 mg tablet 500 mg PO Q6H PRN fever or pain 12/30/22 #14 tabs cyclobenzaprine 5 mg tablet 5 mg PO TID PRN muscle spa sm #7 12/30/22 tabs pantoprazole 40 mg tablet,delayed 40 mg PO DAILY #14 t abs 03/02/23 release (Protonix) penicillin V potassium 500 mg 500 mg PO BID 10 days #2 0 tabs 03/12/23 tablet prednisone 20 mg tablet 20 mg PO DAILY 7 days #7 tab s 03/12/23 amoxicillin 875 mg-potassium 1 tab PO BID 7 days #14 t abs 04/08/23 clavulanate 125 mg tablet acetaminophen 500 mg tablet 1,000 mg (2 x 500 mg) PO Q ID PRN 06/26/23 pain #30 tabs cyclobenzaprine 5 mg tablet 5 mg PO TID PRN muscle spa sm #14 06/26/23 tabs ibuprofen 600 mg tablet 600 mg PO Q6H PRN pain #20 t abs 06/26/23 fluticasone propionate 50 1 spray intranasal DAILY #16 grams 07/11/23 mcg/actuation nasal spray,suspension (Flonase Allergy Relief) amoxicillin 875 mg-potassium 1 tab PO Q12H #14 tabs clavulanate 125 mg tablet cyclobenzaprine 5 mg tablet 5 mg PO Q8H PRN muscle macario n #7 tabs 06/07/24 amoxicillin 875 mg-potassium 1 tab PO BID #19 tabs clavulanate 125 mg tablet penicillin V potassium 500 mg 500 mg PO BID 10 days #2 0 tabs 10/31/24 tablet naproxen 500 mg tablet 500 mg PO BID PRN pain #14 t abs 11/15/24 Allergies Allergy/AdvReac Type Severity Reaction Status Date / Time shellfish derived Allergy Mild Hives Verified 03/16/25 00:01 Review of Systems 2 Review of Systems: Yes all other systems are reviewed and are negative PMFSH Past Medical History Medical History Cervical cancer screening Obesity (BMI 30-39.9) Migraine Surgical History H/O emergency section Family History Family History Maternal Grandmother Diabetes mellitus Maternal Aunt Cancer of breast, female Social History Social History Household Members: Children Housing: House Are you a primary medicare interviewer to a significant other at home: No Do you presently have visiting nurse or other home services: No Alcohol intake: never Patient Tobacco Use Status: Never used Tobacco Smoked in Last 30 Days: No Use of substances other than those prescribed or required for medical reasons: No Agree to transfusion: Yes Advance Directives: No Advance Directives Information Provided: Yes service: No 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al status: employed 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: The patient states that she is a [employer] , 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al exposures/hazards: No Cognitive needs: No Hearing needs: No Vision needs: No Physical Exam 2 Vital Signs: Vital Signs: Last Vital Signs Temp 98.0 F 03/16/25 04:50 Pulse 62 03/16/25 04:50 Resp 18 03/16/25 04:50 BP 112/62 03/16/25 04:50 Pulse Ox 100 03/16/25 04:50 O2 Del Method Room Air 03/16/25 04:50 BMI result Body Mass Index 40.7 CONSTITUTIONAL: The patient appears anxious, mildly pale, but otherwise non- toxic, well nourished and in no acute distress. Vital signs as documented. HEAD: Atraumatic, normocephalic. EYES: EOMs grossly intact, pupils equal, conjunctiva clear, no exudate. ENT: Nares patent, no discharge. Airway patent, no audible stridor, visible mucosa is pink and moist without noted lesions. NECK: Trachea is midline, no obvious masses or gross abnormalities. CHEST: Symmetric movement, normal appearance. LUNGS: LS present and CTAB, no w/r/r. Non-labored work of breathing. CARDIAC: Regular Rhythm, S1/S2 appreciated, no murmurs, rubs or gallops. ABDOMEN: Abdomen soft x4 quadrants, moderate tenderness of the periumbilical area and left lower quadrant, negative rebound, no palpable masses or organomegaly. : Rectal exam performed with AMADOR Ramirez present for [employer] ad[employer] consultant reveals no external hemorrhoids, no palpable internal hemorrhoids, no visible hematochezia. Stool sample shows watery brown stool without evidence of serenity blood. EXTREMITIES: Normal tone, moves all extremities spontaneously without reported pain. No obvious acute injury or deformity noted. NEURO: Alert and oriented x3, CN II-XII appear grossly intact. Cerebellar Functioning grossly intact. No obvious sensory or motor deficits. Speech clear and appropriate. PSYCH: Anxious, tearful affect, but otherwise appropriate eye contact, fluid speech, with appropriate response to questioning. No reported suicidality or homicidality. SKIN: Warm, dry, color appropriate, normal turgor. No rashes noted. Medications Administered Discontinued Medications Generic Name Dose Route Start Last Admin Trade Name Freq PRN Reason Stop Dose Admin Sodium Chloride 1,000 mls @ 999 mls/hr 03/16/25 01:00 03/16/25 02:49 Ns IV 03/16/25 02:00 Infused .Q1H1M MILADY Infusion Iohexol 85 ml 03/16/25 02:04 03/16/25 02:05 Iohexol 350 Mg/Ml 100 Ml Infus..Btl IV 03/16/25 02:05 85 ml ONCE ONE Administration Morphine Sulfate 4 mg 03/16/25 00:58 03/16/25 01:25 Morphine Sulfate 4 Mg/Ml Cartridge IVPUSH 03/16/25 00:59 4 mg ONCE ONE Administration Protocol Ondansetron HCl 4 mg 03/16/25 00:58 03/16/25 01:25 Ondansetron Hcl 4 Mg/2 Ml Vial IVPUSH 03/16/25 00:59 4 mg ONCE ONE Administration Medical Decision Making Medical Decision Making MDM Narrative: 1:06 AM 03/16/2025 (Aubree QUINTANA): The patient is a 35-year-old female presenting to the ED for evaluation of multiple episodes of watery brown diarrhea this evening with associated bright red blood on toilet paper and 1 episode of isolated hematochezia without bowel movement. The patient's exam reveals mild left lower quadrant and periumbilical tenderness, negative rebound, rectal exam shows feel external or palpable internal hemorrhoids. The patient's symptoms will be treated with IV fluid hydration, pain management, antiemetics, and we will obtain laboratory workup and CT to rule out acute process. We will also send stool panel. Pending unremarkable workup and improvement in symptoms, the patient may likely still be suffering from bleeding internal hemorrhoids which are not palpable. Expect patient will likely be discharged home pending unremarkable workup. Admission/Observation Consideration of admission/observation: Escalation of care including admission/observation considered Lab Data MDM Lab Attestation statement: I reviewed the patient's lab results. 03/16/25 00:51 03/16/25 00:51 Labs: Lab Results 03/16/25 03/16/25 Range/Units 00:51 01:11 WBC 11.4 H (4.8-10.8) X10*3/uL RBC 4.40 (4.20-5.50) X10*6/uL Hgb 10.7 L (12.0-16.0) g/dl Hct 32.7 L (37.0-47.0) % MCV 74.3 L (80.0-98.0) fL MCH 24.3 L (27.0-33.0) pg MCHC 32.7 (31.0-35.0) g/dl RDW 16.1 H (11.0-16.0) % Plt Count 343 (160-400) X10*3/uL MPV 9.9 (9.4-12.3) fL Immature Gran % (Auto) 0.2 (0.0-0.4) % Neut % (Auto) 80.2 H (45-73) % Lymph % (Auto) 13.8 L (20-40) % [place] % (Auto) 4.9 (2-11) % Eos % (Auto) 0.6 (0-4) % Baso % (Auto) 0.3 (0-2) % Lymph # (Auto) 1.6 (1.2-4.9) X10*3/uL [place] # (Auto) 0.6 (0.1-1.2) X10*3/uL Eos # (Auto) 0.1 (0.0-0.4) X10*3/uL Baso # (Auto) 0.0 (0.0-0.2) X10*3/uL Abs Immat Gran (auto) 0.02 (0.00-0.03) X10*3/uL Absolute Neuts (auto) 9.2 H (2.0-8.3) x10*3/uL Absolute Nucleated RBC 0.000 (0.0-0.012) X10*3/uL Nucleated RBC % (auto) 0.0 (0.0-0.2) /100WBC Sodium 138 (135-145) mmol/L Potassium 3.3 D (3.3-5.1) mmol/L Chloride 108 (96-108) mmol/L Carbon Dioxide 21 L (22-29) mmol/L Anion Gap 12 (12-20) BUN 10 (9-16) mg/dL Creatinine 0.69 (0.5-1.4) mg/dL Estim Creat Clear Calc 125.4 Estimated GFR > 60 Random Glucose 125 H (60-115) mg/dL Calcium 8.7 (8.4-10.2) mg/dL Total Bilirubin 0.2 (0.0-1.0) mg/dL AST 21 (5-31) U/L ALT 14 (0-31) U/L Alkaline Phosphatase 83 (39-117) U/L Total Protein 7.6 (6.5-8.0) g/dL Albumin 4.2 (3.5-5.0) g/dL Lipase 14 (8-78) U/L Urine Color Yellow Urine Appearance Cloudy Urine pH 5.5 (5.0-9.0) Ur Specific [place] >= 1.030 H (1.005-1.025) Urine Protein Trace (Neg-Trace) mg/dL Urine Glucose (UA) Negative (Negative) mg/dL Urine Ketones Trace (Negative) mg/dL Urine Blood Trace H (Negative) Urine Nitrite Negative (Negative) Ur Leukocyte Esterase Negative (Negative) Urine RBC 0-2 (0-2) /HPF Urine WBC 0-5 (0-5) /HPF Ur Squamous Epith Cells 6-10 (0-2) /HPF Calcium Oxalate Crystal Present Urine Bacteria 1+ (None Seen) Hyaline Casts 3-5 (0-2) /LPF Urine Test NEGATIVE (NEGATIVE) Stool Occult Blood POSITIVE (NEGATIVE) Discharge Plan Discharge Clinical Impression: Diarrhea, PRB (rectal bleeding) Patient Disposition: Home, Self-Care Instructions: Acute Diarrhea (ED) Additional Instructions: _ DISCHARGE DIAGNOSES: Diarrhea intermittent rectal bleeding of unclear source or cause at this time HISTORY OF PRESENTATION: ?Diarrhea rectal bleeding EMERGENCY DEPARTMENT COURSE,TESTS, TREATMENTS: While in the ED today in the emergency department you had lab work that was reassuring. You had a CT without abnormal findings. DISCHARGE MEDICATIONS: ?[We have made no changes to your regular medication regimen] FOLLOW-UP: ?Call your primary or general physician soon as possible to discuss your symptoms, your ED visit and to discuss follow up plans We recommend you call Gastroenterology at the number provided on these paperwork for follow up INSTRUCTIONS ?& RETURN PRECAUTIONS: If any symptoms change first call your primary physician, if it is after-hours your primary doctors office should have a provider manager global communications you can speak with. If the symptoms are severe or very concerning to you then call 911 or return to the ED. Jhon Leon MD Emergency Physician [facility] Prescriptions: No Action ferrous sulfate 325 mg (65 mg iron) tablet,delayed release (DR/EC) 325 mg PO DAILY 90 Days Qty: 90 3RF amoxicillin-pot clavulanate [Augmentin] 500-125 mg tablet 1 tab PO BID 10 Days Qty: 20 0RF pantoprazole [Protonix] 40 mg tablet,delayed release (DR/EC) 40 mg PO DAILY Qty: 14 0RF amoxicillin-pot clavulanate 875-125 mg tablet 1 tab PO BID 7 Days Qty: 14 0RF cyclobenzaprine 5 mg tablet 5 mg PO Q8H PRN (Reason: muscle pain) Qty: 7 0RF amoxicillin-pot clavulanate 875-125 mg tablet 1 tab PO BID Qty: 19 0RF cyclobenzaprine 5 mg tablet 5 mg PO TID PRN (Reason: muscle spasm) Qty: 7 0RF acetaminophen 500 mg tablet 500 mg PO Q6H PRN (Reason: fever or pain) Qty: 14 0RF prednisone 20 mg tablet 20 mg PO DAILY 7 Days Qty: 7 0RF penicillin V potassium 500 mg tablet 500 mg PO BID 10 Days Qty: 20 0RF acetaminophen 500 mg tablet 1,000 mg PO QID PRN (Reason: pain) Qty: 30 0RF ibuprofen 600 mg tablet 600 mg PO Q6H PRN (Reason: pain) Qty: 20 0RF cyclobenzaprine 5 mg tablet 5 mg PO TID PRN (Reason: muscle spasm) Qty: 14 0RF fluticasone propionate [Flonase Allergy Relief] 50 mcg/actuation spray,suspension 1 spray intranasal DAILY Qty: 16 0RF Rx Instructions: administer into each nostril amoxicillin-pot clavulanate 875-125 mg tablet 1 tab PO Q12H Qty: 14 0RF penicillin V potassium 500 mg tablet 500 mg PO BID 10 Days Qty: 20 0RF naproxen 500 mg tablet 500 mg PO BID PRN (Reason: pain) Qty: 14 0RF Vitamin Plus Low Iron 27 mg iron- 1 mg tablet 1 tab PO DAILY Qty: 300 2RF aspirin [Adult Aspirin Regimen] 81 mg tablet,delayed release (DR/EC) 162 mg PO DAILY Qty: 300 2RF Unisom (doxylamine) 25 mg tablet 12.5 mg PO BEDTIME 30 Days Qty: 15 0RF pyridoxine (vitamin B6) 25 mg tablet 25 mg PO TID 30 Days Qty: 90 0RF Boostrix Tdap 2.5-8-5 Lf-mcg-Lf/0.5mL syringe 0.5 ml IM ONCE Qty: 0.5 0RF famotidine [Pepcid AC] 10 mg tablet 10 mg PO BID 30 Days Qty: 60 2RF Interventions: ED Discharge Assessment Last Done: 03/16/25 04:50 Discharge Date/Time: 03/16/25 04:52 Print Language: Wolof
[2025-03-16 00:56] LABS: MANUAL DIFF FLAG NO
[2025-03-16 01:00] LABS: Appearance Urine Cloudy; Glucose Urine UA Negative (Negative); PH 5.5 (5.0-9.0); Specific Gravity - Urine >= 1.030 (1.005-1.025); UMIC TRIGGER UACC YES
[2025-03-16 01:02] LABS: UPreg QC Valid YES
[2025-03-16 01:06] LABS: Hematocrit 32.7 % (37.0-47.0); Hemoglobin 10.7 g/dl (12.0-16.0); Imm Gran Abs Auto 0.02 X10*3/uL (0.00-0.03); Imm Gran Pct Auto 0.2 % (0.0-0.4); Lymphocytes Absolute Auto 1.6 X10*3/uL (1.2-4.9); Mean Corpuscular HGB Conc 32.7 g/dl (31.0-35.0); Mean Corpuscular Hemoglobin 24.3 pg (27.0-33.0); Mean Corpuscular Volume 74.3 fL (80.0-98.0); NRBC Abs Auto 0.000 X10*3/uL (0.0-0.012); NRBC Pct Auto 0.0 /100WBC (0.0-0.2); Platelet Count 343 X10*3/uL (160-400); Red Blood Count 4.40 X10*6/uL (4.20-5.50); White Blood Count 11.4 X10*3/uL (4.8-10.8)
[2025-03-16 01:14] LABS: Alanine Aminotransferase 14 U/L (0-31); Albumin Level 4.2 g/dL (3.5-5.0); Alkaline Phosphatase 83 U/L (39-117); Anion Gap 12 (12-20); Aspartate Amino Transferase 21 U/L (5-31); Blood Urea Nitrogen 10 mg/dL (9-16); Calcium 8.7 mg/dL (8.4-10.2); Carbon Dioxide 21 mmol/L (22-29); Chloride 108 mmol/L (96-108); Creatinine Clr Calc Pharmacy 125.4; Estimated Glomerular Filt Rate > 60; Lipase 14 U/L (8-78); Potassium 3.3 mmol/L (3.3-5.1); Sodium 138 mmol/L (135-145); Total Protein 7.6 g/dL (6.5-8.0)
[2025-03-16 01:49] LABS: OBS1 POSITIVE (NEGATIVE)
[2025-03-16 01:50] LABS: OBS Int Ctl Valid YES
--- OUTSIDE RECORDS SUMMARY | 2025-03-16 01:52 | XMS_ITS | Clinical Summary ---
Author Organization [address] [facility] Address [address] [place] [address] Phone Care Team Providers Care Medical Reception Name Role Phone Carmita Cha MD Primary Care Provider [phone] Allergies Active Allergy Reactions Criticality Noted Date Comments Shellfish Containing Products Hives High 2023 Medications SUMAtriptan (IMITREX) 25 mg tablet Take 1 tablet by mouth as needed for headaches. May repeat dose once after 2 hours, if needed. 4 Active cholecalcifero l (Vitamin D3) 50 mcg (2,000 unit) tablet Take 1 tablet (2,000 Units total) by mouth 1 (one) time each day. 90 tablet 2 4 Active ferrous sulfate 325 mg (65 mg iron) EC tablet Take 1 tablet (325 mg total) by mouth 3 (three) times a day with meals. Do not crush, chew, or split. 90 each 11 4 08/17/20 25 Active oxyCODONE (ROXICODONE) 5 mg immediate release tabletIndicati ons:Carpal tunnel syndrome on right Take 1 tablet (5 mg total) by mouth every 6 (six) hours if needed for severe pain for up to 6 doses. Max Daily Amount: 20 mg 6 tablet 5 Active tiZANidine (ZANAFLEX) 2 mg tablet TAKE 1 TABLET BY MOUTH AT BEDTIME NEEDED FOR MUSCLE SPASMS. 30 tablet 1 5 Active hydrOXYzine HCL (ATARAX) 10 mg tablet TAKE 1 TABLET BY MOUTH TWICE A DAY NEEDED FOR ITCHING 180 tablet 1 5 Active acetaminophen (TYLENOL 8 HOUR) 650 mg 8 hr tablet TAKE 1 TABLET BY MOUTH EVERY 8 HOURS IF NEEDED FOR MILD PAIN. DO NOT CRUSH, CHEW, OR SPLIT. 30 tablet 5 Active omeprazole (PriLOSEC) [address] capsule TAKE 1 CAPSULE BY MOUTH 1 TIME EACH DAY. 90 capsule 1 5 Active loratadine (CLARITIN) 10 mg tablet TAKE 1 TABLET BY MOUTH 1 TIME EACH DAY. 90 tablet 1 5 Active omeprazole (PriLOSEC) [address] capsule Take 1 capsule (20 mg total) by mouth 1 (one) time each day. 90 capsule 1 4 03/14/20 25 Discontinued loratadine (CLARITIN) 10 mg tablet Take 1 tablet (10 mg total) by mouth 1 (one) time each day. 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 05/26/2023 Surgical History Surgery Date Site/Laterality Comments SECTION [...] 64 09/19/2024 9:39 AM EST Temperature 36.5 C (97.7 F) 09/19/2024 9:39 AM EST Respiratory Rate 16 09/19/2024 7:35 AM EST [...] - 2023-2 5 season) 2024 01/17/2021, 12/18/2020 Depression Screening 08/22/2024 02/15/2024 Influenza Vaccine (#1) 2025 06/19/2010 Cholesterol Screening (Lipid Panel) 05/27/2029 05/27/2024, 05/27/2023 [...] age to complete this topic Meningococcal B Vaccine Aged Out No l onger eligible based on patient's age to complete this topic Pneumococcal Vaccine: Pediatrics (0 to 5 Years) and At-Risk Patients (6 to 49 Years) Aged Out No longer eligible b ased on patient's age to complete this topic RSV Immunization Patients Under 20 months Aged Out No longer eligible b ased on patient's age to complete this topic Varicella Vaccines Aged Out No longer eligible based on patient's age to complete this topic Procedures Procedure Name Priority Date/Time Associated Diagnosis Comments LIPID PANEL Routine 05/27/2024 DEPRESSION SCREENING Routine 02/15/2024 HPV Routine 01/22/2015 from Last 3 Months or Most Recently Relevant to Health Maintenance Results * Lipid panel (05/27/2024) Pathologist [facility] LDL/HDL Ratio 3 0 - 4 LDL Cholesterol 72 0 - 100 mg/dL Blood Venous blood specimen / Unknown Historical Provider LAB BLOOD ORDERABLES Bella l Result * Depression Screening (02/15/2024) Pathologist [facility] Depression Screening abstracted [facility] Provider HEALTH MAINTENANCE Final Result * Cervical Cancer Screening: HPV (01/22/2015) Pathologist [facility] Cervical Cancer Screening: HPV abstracted, no interpretation Historical Provider HEALTH MAINTENANCE Final Result from Last 3 Months or Most Recently Relevant to Health Maintenance Insurance [facility] [employer] Care Teams Medical Reception Relationship Specialty Start Date End Date Carmita Cha MD [address] [facility] [address] [place] [address] PCP - General Internal Medicine 05/13/21
[2025-03-16] MEDS: iohexoL 350 MG/ML 100 ML INFUS..BTL 85 ML IV (02:05)
[2025-03-16 04:50] VITALS: BP 112/62; PULSE 62; RESP 18; TEMP 36.7; O2SAT 100
[2025-03-16 09:32] LABS: E. coli EAEC Not Detected (Not Detect.); E. coli EPEC Not Detected (Not Detect.); E. coli ETEC Not Detected (Not Detect.); E. coli STEC Not Detected (Not Detect.); Shigella sp./EIEC Not Detected (Not Detect.)
== END 2025-03-16 04:52 | disposition home or self-care (01) ==
PROVIDERS: Physician Assistant; Emergency Provider Emergency Medicine
DX: R19.7 Diarrhea, unspecified (principal); K62.5 Hemorrhage of anus and rectum; Z79.899 Other long term (current) drug therapy
CPT/HCPCS: 36415; 74177; 80053; 81001; 81025; 82272; 83690; 85025; 87507; 96361; 96374; 96375; 99284; J2270; J2405; Q9967

== ENCOUNTER → 2025-03-16 00:58 | Outpatient (BNV) | payer OTHER, SELFPAY | PROVIDERS: Emergency Provider Emergency Medicine; Visit Provider Radiology Diagnostic Radiology | DX: R10.9 Unspecified abdominal pain (principal); R19.7 Diarrhea, unspecified | CPT/HCPCS: 74177 ==